=== PATIENT | female | born 1955 | race African-American/Black ===

== ENCOUNTER 2017-07-21 15:54 | Inpatient (IN) | payer OTHER ==
--- NOTE | 2017-07-21 16:04 | PDOC ---
Rapid Medical Evaluation Time Seen by Provider: 07/21/17 15:56 Medical Evaluation: 07/21/17 15:56 The patient presents with a chief complaint of: Lethargy, AMS. states pt has not been taking her diabetic medication for the past week I have performed a brief in-person evaluation of this patient; Pertinent physical exam findings: No facial droop, no arm drift, speech is mildly slurred I have ordered the following: CMC, CMP, Lactic, Cardiac profile, Acetone, EKG, CT head The patient will proceed to the ED for further evaluation.
[2017-07-21 16:53] LABS: MCH 26.8 pg (25.7-33.7); MCHC 29.9 g/dl (32.0-36.0); MEAN CELL VOLUME 89.9 fl (80-96); PLATELET COUNT 245 K/MM3 (134-434); RDW 16.8 % (11.6-15.6); WHITE BLOOD COUNT 12.1 K/mm3 (4.0-10.0)
[2017-07-21 16:57] LABS: URINE APPEARANCE TURBID; URINE BILIRUBIN NEGATIVE (NEGATIVE); URINE BLOOD 3+ (NEGATIVE); URINE COLOR YELLOW; URINE GLUCOSE (UA) 3+ (NEGATIVE); URINE KETONE 1+ (NEGATIVE); URINE NITRITE NEGATIVE (NEGATIVE); URINE UROBILINOGEN NEGATIVE mg/dL (0.2-1.0)
[2017-07-21 17:02] LABS: URINE LEUK ESTERASE 3+ (NEGATIVE); URINE PROTEIN 1+ (NEGATIVE)
[2017-07-21 17:04] LABS: URINE BACTERIA MANY /hpf (NONE SEEN); URINE MUCUS MANY; URINE RBC 32 /hpf (0-3); URINE WBC 425 /hpf (3-5); YEAST FEW
[2017-07-21 17:07] LABS: INR 1.14 (0.82-1.09); PROTHROMBIN TIME (PATIENT) 12.9 SEC (9.98-11.88)
[2017-07-21 17:11] LABS: ALBUMIN 2.3 g/dl (3.4-5.0); ALK PHOS 165 U/L (45-117); ANION GAP 20 (8-16); BILIRUBIN,TOTAL 0.7 mg/dL (0.2-1.0); CALCIUM 7.8 mg/dL (8.5-10.1); CO2 18 mmol/L (21-32); SGOT/AST 41 U/L (15-37); SGPT/ALT 25 U/L (12-78); TOT PROT 6.8 g/dl (6.4-8.2)
[2017-07-21 17:19] LABS: GLUCOSE,RANDOM 937 mg/dL (74-106)
[2017-07-21] MEDS ORDERED: INSULIN REGULAR HUMAN 100 UNITS/ML *VIAL IVPUSH ONE (17:20)
[2017-07-21] MEDS ORDERED: SODIUM CHLORIDE 1,000 ML IV STA (17:22)
[2017-07-21 17:25] LABS: CPK 1060 IU/L (26-192); TROPONIN I < 0.02 ng/ml (0.00-0.05)
--- NOTE | 2017-07-21 17:39 | PDOC ---
History of Present Illness <Alessio Duke - Last Filed: 07/21/17 17:33> - General History Source: Patient Exam Limitations: No Limitations - History of Present Illness Initial Comments: 07/21/17 18:33 The patient is a 62 year old female, with a significant past medical history of Asthma, Diabetes, HTN who presents to the emergency department with increased lethargy for the past 3 days. Patient reports feeling generally weak and has not been eating normally. As per , patient has not been taking her Metformin regularly and has been complaining of dry mouth and increased thirst over the past few days. Today, patient had a episode of AMS with slurred speech. Patient has not been taking her medications due to insurance issues and presents to the ED for evaluation of her emergent condition. Patient denies chest pain, headache or dizziness. Patient denies fever, chills, abdominal pain, nausea, vomit, diarrhea or constipation. Patient denies dysuria , frequency, urgency or hematuria. Patient denies sick contacts or recent travel. Allergies: NKA Past surgical history: None Social history: None PCP: None <Ana Baca - Last Filed: 07/21/17 18:33> - General Chief Complaint: CVA/TIA Stated Complaint: SLURRED SPEECH Time Seen by Provider: 07/21/17 15:56 Past History - Past Medical History Asthma: Yes COPD: No Diabetes: Yes HTN: Yes - Suicide/Smoking/Psychosocial Hx Smoking History: Never smoked Information on smoking cessation initiated: No Hx Alcohol Use: No Drug/Substance Use Hx: No Substance Use Type: None <Alesiso Duke - Last Filed: 07/21/17 17:33> <Ana Baca - Last Filed: 07/21/17 18:33> - Past Medical History Allergies/Adverse Reactions: Allergies Allergy/AdvReac Type Severity Reaction Status Date / Time No Known Allergies Allergy Verified 07/21/17 15:58 Home Medications: Ambulatory Orders Irbesartan 300 mg PO DAILY 07/21/17 Metformin HCl [Metformin HCl ER] 1,000 mg PO BID 07/21/17 Review of Systems - Review of Systems Able to Perform ROS?: Yes Comments:: 07/21/17 18:33 GENERAL/CONSTITUTIONAL: No fever or chills. +generalized weakness. HEAD, EYES, EARS, NOSE AND THROAT: No change in vision. No ear pain or discharge. No sore throat. CARDIOVASCULAR: No chest pain or shortness of breath. RESPIRATORY: No cough, wheezing, or hemoptysis. GASTROINTESTINAL: No nausea, vomiting, diarrhea or constipation. GENITOURINARY: No dysuria, frequency, or change in urination. MUSCULOSKELETAL: No joint or muscle swelling or pain. No neck or back pain. SKIN: No rash NEUROLOGIC: No headache, vertigo, loss of consciousness, or change in strength/ sensation. ENDOCRINE: No increased thirst. No abnormal weight change. HEMATOLOGIC/LYMPHATIC: No anemia, easy bleeding, or history of blood clots. ALLERGIC/IMMUNOLOGIC: No hives or skin allergy. <Ana Baca - Last Filed: 07/21/17 18:33> *Physical Exam - Vital Signs Last Vital Signs Temp Pulse Resp BP Pulse Ox 99.3 F 90 18 100/43 100 07/21/17 15:58 07/21/17 15:58 07/21/17 15:58 07/21/17 15:58 07/21/17 15:58 <Alessio Duke - Last Filed: 07/21/17 17:33> - Vital Signs Last Vital Signs Temp Pulse Resp BP Pulse Ox 99.3 F 90 18 100/43 100 07/21/17 15:58 07/21/17 15:58 07/21/17 15:58 07/21/17 15:58 07/21/17 15:58 - Physical Exam Comments: 07/21/17 18:33 GENERAL: Awake, alert, and fully oriented, in no acute distress. +Generalized weakness. HEAD: No signs of trauma EYES: PERRLA, EOMI, sclera anicteric, conjunctiva clear ENT: Auricles normal inspection, hearing grossly normal, nares patent, oropharynx clear without exudates. + dry MM NECK: Normal ROM, supple, no lymphadenopathy, JVD, or masses LUNGS: Breath sounds equal, clear to auscultation bilaterally. No wheezes, and no crackles HEART: Regular rate and rhythm, normal S1 and S2, no murmurs, rubs or gallops ABDOMEN: Soft, nontender, normoactive bowel sounds. No guarding, no rebound. No masses EXTREMITIES: Normal range of motion, no edema. No clubbing or cyanosis. No cords, erythema, or tenderness NEUROLOGICAL: Cranial nerves II through XII grossly intact. Normal speech, normal gait SKIN: +poor skin turgor. Warm, Dry, normal turgor, no rashes or lesions noted. <KevenAna rivas - Last Filed: 07/21/17 18:33> ED Treatment Course - LABORATORY CBC & Chemistry Diagram: 07/21/17 16:19 07/21/17 16:19 - ADDITIONAL ORDERS Additional order review: Laboratory Results 07/21/17 07/21/17 07/21/17 16:42 16:19 16:19 PT with INR INR Sodium Potassium Chloride Carbon Dioxide Anion Gap BUN Creatinine Creat Clearance w eGFR Random Glucose Lactic Acid 1.7 Calcium Total Bilirubin AST ALT Alkaline Phosphatase Creatine Kinase 1060 H Troponin I < 0.02 Total Protein Albumin Urine Color Yellow Urine Appearance Turbid Urine pH 5.0 Ur Specific Rodney 1.018 Urine Protein 1+ H Urine Glucose (UA) 3+ H Urine Ketones 1+ H Urine Blood 3+ H Urine Nitrite Negative Urine Bilirubin Negative Urine Urobilinogen Negative Urine WBC (Auto) 425 Urine RBC (Auto) 32 Ur Epithelial Cells Rare Urine Bacteria Many Urine Mucus Many Urine Yeast Few 07/21/17 07/21/17 16:19 16:19 PT with INR 12.90 H INR 1.14 Sodium 119 L* Potassium 5.8 H Chloride 81 L Carbon Dioxide 18 L Anion Gap 20 H BUN 41 H Creatinine 2.0 H Creat Clearance w eGFR 25.08 Random Glucose 937 H* Lactic Acid Calcium 7.8 L Total Bilirubin 0.7 AST 41 H ALT 25 Alkaline Phosphatase 165 H Creatine Kinase Troponin I Total Protein 6.8 Albumin 2.3 L Urine Color Urine Appearance Urine pH Ur Specific Rodney Urine Protein Urine Glucose (UA) Urine Ketones Urine Blood Urine Nitrite Urine Bilirubin Urine Urobilinogen Urine WBC (Auto) Urine RBC (Auto) Ur Epithelial Cells Urine Bacteria Urine Mucus Urine Yeast 07/21/17 16:19 RBC 3.24 L MCV 89.9 MCHC 29.9 L RDW 16.8 H MPV 11.0 Neutrophils % No Result Required. Lymphocytes % No Result Required. <Alessio Duke - Last Filed: 07/21/17 17:33> - LABORATORY CBC & Chemistry Diagram: 07/21/17 16:19 07/21/17 16:19 - ADDITIONAL ORDERS Additional order review: Laboratory Results 07/21/17 07/21/17 07/21/17 16:42 16:19 16:19 PT with INR INR Sodium Potassium Chloride Carbon Dioxide Anion Gap BUN Creatinine Creat Clearance w eGFR Random Glucose Lactic Acid 1.7 Calcium Total Bilirubin AST ALT Alkaline Phosphatase Creatine Kinase 1060 H Troponin I < 0.02 Total Protein Albumin Urine Color Yellow Urine Appearance Turbid Urine pH 5.0 Ur Specific Rodney 1.018 Urine Protein 1+ H Urine Glucose (UA) 3+ H Urine Ketones 1+ H Urine Blood 3+ H Urine Nitrite Negative Urine Bilirubin Negative Urine Urobilinogen Negative Urine WBC (Auto) 425 Urine RBC (Auto) 32 Ur Epithelial Cells Rare Urine Bacteria Many Urine Mucus Many Urine Yeast Few 07/21/17 07/21/17 16:19 16:19 PT with INR 12.90 H INR 1.14 Sodium 119 L* Potassium 5.8 H Chloride 81 L Carbon Dioxide 18 L Anion Gap 20 H BUN 41 H Creatinine 2.0 H Creat Clearance w eGFR 25.08 Random Glucose 937 H* Lactic Acid Calcium 7.8 L Total Bilirubin 0.7 AST 41 H ALT 25 Alkaline Phosphatase 165 H Creatine Kinase Troponin I Total Protein 6.8 Albumin 2.3 L Urine Color Urine Appearance Urine pH Ur Specific Rodney Urine Protein Urine Glucose (UA) Urine Ketones Urine Blood Urine Nitrite Urine Bilirubin Urine Urobilinogen Urine WBC (Auto) Urine RBC (Auto) Ur Epithelial Cells Urine Bacteria Urine Mucus Urine Yeast 07/21/17 16:19 RBC 3.24 L MCV 89.9 MCHC 29.9 L RDW 16.8 H MPV 11.0 Neutrophils % No Result Required. Lymphocytes % No Result Required. <Ana Baca - Last Filed: 07/21/17 18:33> Medical Decision Making - Critical Care Time Total Critical Care Time (minutes): 60 Critical Care Statement: The care of this patient involved high complexity decision making to prevent further life threatening deterioration of the patient 's condition and/or to evaluate & treat vital organ system(s) failure or risk of failure. - Medical Decision Making 07/21/17 17:51 Valerie paged via phone answering service. Patients case discussed. Will admit to ICU Case discussed with Janes. Case accepted. <Ana Baca - Last Filed: 07/21/17 18:33> *DC/Admit/Observation/Transfer - Discharge Dispostion Admit: Yes <Alessio Duke - Last Filed: 07/21/17 17:33> - Attestations Scribe Attestion: 07/21/17 18:33 Documentation prepared by Ana Baca, acting as ophthalmic medical technologist for Alessio Duke DO. <Ana Baca - Last Filed: 07/21/17 18:33> Diagnosis at time of Disposition: Non-ketotic hyperosmolar coma, Hyponatremia Altered mental status Qualifiers: Altered mental status type: delirium Qualified Code(s): R41.0 - Disorientation , unspecified UTI (urinary tract infection) Qualifiers: Urinary tract infection type: site unspecified Hematuria presence: with hematuria Qualified Code(s): N39.0 - Urinary tract infection, site not specified Sepsis Qualifiers: Sepsis type: sepsis due to unspecified organism Qualified Code(s): A41.9 - Sepsis, unspecified organism - Discharge Dispostion Condition at time of disposition: Unchanged/Unknown
[2017-07-21 17:59] LABS: ANISOCYTOSIS 1+; HYPOCHROMIA 1+; MACROCYTOSIS 0; METAMYELOCYTE 0 % (0-2); MICROCYTOSIS 0; MYELOCYTE 0 % (0-2); PLATELET COMMENTS PRESENT; PLATELET ESTIMATE NORMAL; POIKILOCYTOSIS 0; POLYCHROMASIA 0; REACTIVE LYMPHOCYTES 0 % (0-80); STOMATOCYTE 1+
[2017-07-21] MEDS ORDERED: INSULIN REGULAR HUMAN 100 UNITS/ML *VIAL ONE (18:01)
[2017-07-21] MEDS ORDERED: SODIUM CHLORIDE 0.9% 1000 ML INFUS.BAG IV ONE (18:24)
[2017-07-21 18:26] LABS: ARTERIAL BLD GAS O2 SATURATION 94.9 % (90-98.9); ARTERIAL BLOOD GAS BASE EXCESS -8.2 meq/l (-2-2); ARTERIAL BLOOD GAS HCO3 15.8 meq/L (22-26); ARTERIAL BLOOD GAS pH 7.37 (7.35-7.45)
[2017-07-21 18:27] LABS: ALLENS TEST POSITIVE
[2017-07-21 18:28] LABS: ART PUNCT SITE RIGHT RADIAL
[2017-07-21 18:29] LABS: PT. ON O2? NO
[2017-07-21] MEDS ORDERED: CEFTRIAXONE 1 GM/50 ML BAG ONE (18:56)
[2017-07-21] MEDS ORDERED: cefTRIAXone 1 GM/50 ML BAG (PRE-DOCKED) IVPB ONE (19:03)
[2017-07-21 21:23] LABS: URINE LEUK ESTERASE 3+ (NEGATIVE)
[2017-07-21] MEDS ORDERED: LEVOFLOXACIN 500 MG IVPB 500 MG/100 ML BAG IVPB ONE ×2 (22:27→22:45)
[2017-07-21] MEDS ORDERED: SODIUM CHLORIDE 1,000 ML IV SCH (22:30)
--- NOTE | 2017-07-21 22:31 | HP ---
Admitting History and Physical - Primary Care Physician PCP: Jinny Padilla - Past Medical History Cardiovascular: Yes: HTN Pulmonary: Yes: Asthma Endocrine: Yes: Diabetes Mellitus - Smoking History Smoking history: Never smoked - Alcohol/Substance Use Hx Alcohol Use: No Home Medications - Allergies Allergies/Adverse Reactions: Allergies Allergy/AdvReac Type Severity Reaction Status Date / Time No Known Allergies Allergy Verified 07/21/17 15:58 - Home Medications Home Medications: Ambulatory Orders Irbesartan 300 mg PO DAILY 07/21/17 Metformin HCl [Metformin HCl ER] 1,000 mg PO BID 07/21/17 Review of Systems - Review of Systems Constitutional: reports: Lethargy Genitourinary: reports: Frequency Endocrine: reports: Increased Thirst Physical Examination Vital Signs: Vital Signs Temperature 99.3 F 07/21/17 15:58 Pulse Rate 94 H 07/21/17 20:25 Respiratory Rate 18 07/21/17 20:25 Blood Pressure 94/40 07/21/17 20:25 O2 Sat by Pulse Oximetry (%) 98 07/21/17 20:25 Constitutional: Yes: No Distress HENT: Yes: Atraumatic Neck: Yes: Supple Cardiovascular: Yes: Regular Rate and Rhythm Respiratory: Yes: CTA Bilaterally Gastrointestinal: Yes: Normal Bowel Sounds Extremities: Yes: WNL Neurological: Yes: Alert, Oriented Labs: CBC, BMP 07/21/17 16:19 Problem List - Problems (1) Altered mental status Assessment/Plan: alert and awake Code(s): R41.82 - ALTERED MENTAL STATUS, UNSPECIFIED Qualifiers: Altered mental status type: delirium Qualified Code(s): R41.0 - Disorientation, unspecified (2) Hyponatremia Assessment/Plan: on iv fluids monitor Code(s): E87.1 - HYPO-OSMOLALITY AND HYPONATREMIA (3) Non-ketotic hyperosmolar coma Assessment/Plan: on meds for diabetes endocrine consult Code(s): E11.01 - TYPE 2 DIABETES MELLITUS WITH HYPEROSMOLARITY WITH COMA (4) Sepsis Assessment/Plan: cxs pending on abx Code(s): A41.9 - SEPSIS, UNSPECIFIED ORGANISM Qualifiers: Sepsis type: sepsis due to unspecified organism Qualified Code(s): A41.9 - Sepsis, unspecified organism (5) UTI (urinary tract infection) Code(s): N39.0 - URINARY TRACT INFECTION, SITE NOT SPECIFIED Qualifiers: Urinary tract infection type: site unspecified Hematuria presence: with hematuria Qualified Code(s): N39.0 - Urinary tract infection, site not specified; R31.9 - Hematuria, unspecified; R31.9 - Hematuria, unspecified Assessment/Plan Laboratory Tests 07/21/17 07/21/17 07/21/17 16:18 16:19 16:19 WBC 12.1 H RBC 3.24 L Hgb 8.7 L Hct 29.1 L MCV 89.9 MCH 26.8 MCHC 29.9 L RDW 16.8 H Plt Count 245 MPV 11.0 Neutrophils % No Result Required. Neutrophils % (Manual) 62.0 Band Neutrophils % 24.0 Lymphocytes % No Result Required. Lymphocytes % (Manual) 1.0 L Monocytes % (Manual) 13 H Basophils % (Manual) 0.0 Myelocytes % (Man) 0 Metamyelocytes 0 Hypochromia 1+ Platelet Estimate Normal Platelet Comment Present Polychromasia 0 Poikilocytosis 0 Anisocytosis 1+ Microcytosis 0 Macrocytosis 0 Stomatocytes 1+ PT with INR 12.90 H INR 1.14 Puncture Site ABG pH ABG pCO2 at Pt Temp ABG pO2 at Pt Temp ABG HCO3 ABG O2 Sat (Measured) ABG O2 Content ABG Base Excess Casper Test Oxygen Flow Rate Sodium Potassium Chloride Carbon Dioxide Anion Gap BUN Creatinine Creat Clearance w eGFR POC Glucometer [phone] Random Glucose Lactic Acid Calcium Total Bilirubin AST ALT Alkaline Phosphatase Creatine Kinase Creatine Kinase Index CK-MB (CK-2) Troponin I Total Protein Albumin Urine Color Urine Appearance Urine pH Ur Specific Jordan Urine Protein Urine Glucose (UA) Urine Ketones Urine Blood Urine Nitrite Urine Bilirubin Urine Urobilinogen Ur Leukocyte Esterase Urine WBC (Auto) Urine RBC (Auto) Ur Epithelial Cells Urine Bacteria Urine Mucus Urine Yeast Acetone, Qual Blood Type Antibody Screen 07/21/17 07/21/17 07/21/17 16:19 16:19 16:19 WBC RBC Hgb Hct MCV MCH MCHC RDW Plt Count MPV Neutrophils % Neutrophils % (Manual) Band Neutrophils % Lymphocytes % Lymphocytes % (Manual) Monocytes % (Manual) Basophils % (Manual) Myelocytes % (Man) Metamyelocytes Hypochromia Platelet Estimate Platelet Comment Polychromasia Poikilocytosis Anisocytosis Microcytosis Macrocytosis Stomatocytes PT with INR INR Puncture Site ABG pH ABG pCO2 at Pt Temp ABG pO2 at Pt Temp ABG HCO3 ABG O2 Sat (Measured) ABG O2 Content ABG Base Excess Casper Test Oxygen Flow Rate Sodium 119 L* Potassium 5.8 H Chloride 81 L Carbon Dioxide 18 L Anion Gap 20 H BUN 41 H Creatinine 2.0 H Creat Clearance w eGFR 25.08 POC Glucometer Random Glucose 937 H* Lactic Acid 1.7 Calcium 7.8 L Total Bilirubin 0.7 AST 41 H ALT 25 Alkaline Phosphatase 165 H Creatine Kinase 1060 H Creatine Kinase Index 0.2 CK-MB (CK-2) 2.922 Troponin I < 0.02 Total Protein 6.8 Albumin 2.3 L Urine Color Urine Appearance Urine pH Ur Specific Jordan Urine Protein Urine Glucose (UA) Urine Ketones Urine Blood Urine Nitrite Urine Bilirubin Urine Urobilinogen Ur Leukocyte Esterase Urine WBC (Auto) Urine RBC (Auto) Ur Epithelial Cells Urine Bacteria Urine Mucus Urine Yeast Acetone, Qual Blood Type Antibody Screen 07/21/17 07/21/17 07/21/17 16:19 16:19 16:42 WBC RBC Hgb Hct MCV MCH MCHC RDW Plt Count MPV Neutrophils % Neutrophils % (Manual) Band Neutrophils % Lymphocytes % Lymphocytes % (Manual) Monocytes % (Manual) Basophils % (Manual) Myelocytes % (Man) Metamyelocytes Hypochromia Platelet Estimate Platelet Comment Polychromasia Poikilocytosis Anisocytosis Microcytosis Macrocytosis Stomatocytes PT with INR INR Puncture Site ABG pH ABG pCO2 at Pt Temp ABG pO2 at Pt Temp ABG HCO3 ABG O2 Sat (Measured) ABG O2 Content ABG Base Excess Casper Test Oxygen Flow Rate Sodium Potassium Chloride Carbon Dioxide Anion Gap BUN Creatinine Creat Clearance w eGFR POC Glucometer Random Glucose Lactic Acid Calcium Total Bilirubin AST ALT Alkaline Phosphatase Creatine Kinase Creatine Kinase Index CK-MB (CK-2) Troponin I Total Protein Albumin Urine Color Yellow Urine Appearance Turbid Urine pH 5.0 Ur Specific Jordan 1.018 Urine Protein 1+ H Urine Glucose (UA) 3+ H Urine Ketones 1+ H Urine Blood 3+ H Urine Nitrite Negative Urine Bilirubin Negative Urine Urobilinogen Negative Ur Leukocyte Esterase 3+ H Urine WBC (Auto) 425 Urine RBC (Auto) 32 Ur Epithelial Cells Rare Urine Bacteria Many Urine Mucus Many Urine Yeast Few Acetone, Qual Positive moderate 2+ H Blood Type A POSITIVE Antibody Screen Negative 07/21/17 18:21 WBC RBC Hgb Hct MCV MCH MCHC RDW Plt Count MPV Neutrophils % Neutrophils % (Manual) Band Neutrophils % Lymphocytes % Lymphocytes % (Manual) Monocytes % (Manual) Basophils % (Manual) Myelocytes % (Man) Metamyelocytes Hypochromia Platelet Estimate Platelet Comment Polychromasia Poikilocytosis Anisocytosis Microcytosis Macrocytosis Stomatocytes PT with INR INR Puncture Site Right radial ABG pH 7.37 ABG pCO2 at Pt Temp 28.0 L ABG pO2 at Pt Temp 77.0 L ABG HCO3 15.8 L ABG O2 Sat (Measured) 94.9 ABG O2 Content 10.2 L ABG Base Excess -8.2 L Casper Test Positive Oxygen Flow Rate No Sodium Potassium Chloride Carbon Dioxide Anion Gap BUN Creatinine Creat Clearance w eGFR POC Glucometer Random Glucose Lactic Acid Calcium Total Bilirubin AST ALT Alkaline Phosphatase Creatine Kinase Creatine Kinase Index CK-MB (CK-2) Troponin I Total Protein Albumin Urine Color Urine Appearance Urine pH Ur Specific Jordan Urine Protein Urine Glucose (UA) Urine Ketones Urine Blood Urine Nitrite Urine Bilirubin Urine Urobilinogen Ur Leukocyte Esterase Urine WBC (Auto) Urine RBC (Auto) Ur Epithelial Cells Urine Bacteria Urine Mucus Urine Yeast Acetone, Qual Blood Type Antibody Screen Active Medications Generic Name Dose Route Start Last Admin Trade Name Freq PRN Reason Stop Dose Admin Levofloxacin 500 mg in 100 mls @ 100 mls/hr 07/21/17 22:27 Levaquin 500 Mg Premixed Ivpb - IVPB 07/21/17 23:26 DAILY ONE Sodium Chloride 1,000 mls @ 100 mls/hr 07/21/17 22:30 Normal Saline - IV ASDIR JESSICA Non-Formulary Medication 1,000 mg 07/22/17 10:00 Metformin Hcl [Metformin Hcl Er] PO BID JESSICA icu 60 min...cc time
[2017-07-21 22:53] LABS: ALBUMIN 1.9 g/dl (3.4-5.0); ANION GAP 15 (8-16); CO2 17 mmol/L (21-32); CREATININE 1.4 mg/dL (0.55-1.02); SGOT/AST 30 U/L (15-37); SGPT/ALT 20 U/L (12-78)
[2017-07-21 22:55] LABS: ALK PHOS 143 U/L (45-117); BILIRUBIN,TOTAL 0.6 mg/dL (0.2-1.0); TOT PROT 5.5 g/dl (6.4-8.2)
[2017-07-21 23:00] LABS: GLUCOSE,RANDOM 578 mg/dL (74-106)
[2017-07-21 23:01] LABS: CALCIUM 6.8 mg/dL (8.5-10.1)
[2017-07-21 23:23] LABS: MCH 27.3 pg (25.7-33.7); MCHC 32.1 g/dl (32.0-36.0); MEAN CELL VOLUME 85.2 fl (80-96); MEAN PLT VOLUME 9.9 fl (7.5-11.1); PLATELET COUNT 224 K/MM3 (134-434); WHITE BLOOD COUNT 12.2 K/mm3 (4.0-10.0)
[2017-07-22 00:12] LABS: ANISOCYTOSIS 1+; HYPOCHROMIA 1+; TOXIC GRANULATION FEW
[2017-07-22 00:22] VITALS: BMI 29.5
[2017-07-22] MEDS ORDERED: FLU VACCINE QUAD 60 MCG/0.5 ML (MDV 17-18) IM ONE (00:24)
--- NOTE | 2017-07-22 06:14 | CONSULT ---
Consult Consult Specialty:: PULM/CCM Referred by:: Dr. Jinny Padilla Reason for Consultation:: DKA - History of Present Illness Chief Complaint: Malaise History of Present Illness: Ms. Perez is a 62 y/o woman w/ HTN, DM, & Asthma who presents to the ED c/o c/o : dry mouth, increased thirst, increased lethargy, & poor PO intake X 3 days. Pt endorses Metformin non-compliance X 3 -4 days & states that she stopped taking her Metformin b/c she was "not feeling well". The pt denied any CP, SOB, fever, chills, N/V/D, abd pain, TILLMAN, dizzy, dysuria, frequency, urgency or hematuria. Patient denies any sick contacts or recent travel. W/u reveales a dirty UA & metabolic disarray. Labs reveal: dehydration, +acetone, a gap, & Ketones in the Urine. Pt admitted to the ICU for DKA. 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, Dementia Cardio/Vascular: Yes: HTN Pulmonary: Yes: Asthma Gastrointestinal: No: GERD Renal/: No: Renal Inusuff Endocrine: Yes: Diabetes Mellitus - Past Surgical History Past Surgical History: Yes: None - Alcohol/Substance Use Hx Alcohol Use: No - Smoking History Smoking history: Never smoked Have you smoked in the past 12 months: No - Social History Usual Living Arrangement: With Spouse History of Recent Travel: No Home Medications - Allergies Allergies/Adverse Reactions: Allergies Allergy/AdvReac Type Severity Reaction Status Date / Time No Known Allergies Allergy Verified 07/21/17 15:58 - Home Medications Home Medications: Ambulatory Orders Irbesartan 300 mg PO DAILY 07/21/17 Metformin HCl [Metformin HCl ER] 1,000 mg PO BID 07/21/17 Family Disease History - Family Disease History Family History: Denies Review of Systems - Review of Systems Constitutional: reports: Loss of Appetite, Malaise, Weakness. denies: Chills, Fever Eyes: reports: No Symptoms HENT: reports: No Symptoms Neck: reports: No Symptoms Cardiovascular: reports: No Symptoms Respiratory: reports: No Symptoms Gastrointestinal: reports: No Symptoms Genitourinary: reports: No Symptoms Breasts: reports: No Symptoms Reported Musculoskeletal: reports: No Symptoms Integumentary: reports: No Symptoms Neurological: reports: Change in Speech Endocrine: reports: Increased Thirst Hematology/Lymphatic: reports: No Symptoms Psychiatric: reports: No Symptoms Pain Intensity: 0 Physical Exam Vital Signs: Vital Signs Temperature 99.6 F 07/22/17 02:00 Pulse Rate 99 H 07/22/17 04:00 Respiratory Rate 20 07/22/17 04:00 Blood Pressure 99/55 07/22/17 04:00 O2 Sat by Pulse Oximetry (%) 95 07/22/17 00:26 Constitutional: Yes: Well Nourished, No Distress, Calm Eyes: Yes: WNL, Conjunctiva Clear, EOM Intact HENT: Yes: WNL, Atraumatic, Normocephalic Neck: Yes: WNL, Supple, Trachea Midline Cardiovascular: Yes: WNL, Regular Rate and Rhythm Respiratory: Yes: WNL, Regular, CTA Bilaterally Gastrointestinal: Yes: WNL, Normal Bowel Sounds, Soft ...Rectal Exam: Yes: Deferred Renal/: Yes: WNL Breast(s): Yes: WNL Musculoskeletal: Yes: WNL Extremities: Yes: WNL Edema: No Peripheral Pulses WNL: Yes Neurological: Yes: WNL, Alert, Oriented ...Motor Strength: WNL Psychiatric: Yes: WNL, Alert, Oriented Labs: CBC, BMP 07/21/17 23:10 07/21/17 22:20 Anion Gap Anion Gap 15 (8-16) 07/21/17 22:20 Abnormal Lab Results 07/21/17 07/21/17 07/21/17 16:19 16:19 16:19 WBC 12.1 H RBC 3.24 L Hgb 8.7 L Hct 29.1 L MCHC 29.9 L RDW 16.8 H Lymphocytes % (Manual) 1.0 L Monocytes % (Manual) 13 H PT with INR 12.90 H ABG pCO2 at Pt Temp ABG pO2 at Pt Temp ABG HCO3 ABG O2 Content ABG Base Excess Sodium 119 L* Potassium 5.8 H Chloride 81 L Carbon Dioxide 18 L Anion Gap 20 H BUN 41 H Creatinine 2.0 H Random Glucose 937 H* Calcium 7.8 L AST 41 H Alkaline Phosphatase 165 H Creatine Kinase Total Protein Albumin 2.3 L Urine Protein Urine Glucose (UA) Urine Ketones Urine Blood Ur Leukocyte Esterase Acetone, Qual 07/21/17 07/21/17 07/21/17 16:19 16:19 16:42 WBC RBC Hgb Hct MCHC RDW Lymphocytes % (Manual) Monocytes % (Manual) PT with INR ABG pCO2 at Pt Temp ABG pO2 at Pt Temp ABG HCO3 ABG O2 Content ABG Base Excess Sodium Potassium Chloride Carbon Dioxide Anion Gap BUN Creatinine Random Glucose Calcium AST Alkaline Phosphatase Creatine Kinase 1060 H Total Protein Albumin Urine Protein 1+ H Urine Glucose (UA) 3+ H Urine Ketones 1+ H Urine Blood 3+ H Ur Leukocyte Esterase 3+ H Acetone, Qual Positive moderate 2+ H 07/21/17 07/21/17 07/21/17 18:21 22:20 22:20 WBC RBC Hgb Hct MCHC RDW Lymphocytes % (Manual) Monocytes % (Manual) PT with INR ABG pCO2 at Pt Temp 28.0 L ABG pO2 at Pt Temp 77.0 L ABG HCO3 15.8 L ABG O2 Content 10.2 L ABG Base Excess -8.2 L Sodium 132 L D Potassium Chloride Carbon Dioxide 17 L Anion Gap BUN 34 H Creatinine 1.4 H D Random Glucose 578 H* D Calcium 6.8 L* AST Alkaline Phosphatase 143 H Creatine Kinase Total Protein 5.5 L Albumin 1.9 L Urine Protein Urine Glucose (UA) Urine Ketones Urine Blood Ur Leukocyte Esterase Acetone, Qual Positive small 1+ H 07/21/17 07/22/17 23:10 06:05 WBC 12.2 H 13.8 H RBC 3.07 L 2.94 L Hgb 8.4 L 7.9 L Hct 26.1 L 25.1 L MCHC 31.3 L RDW 16.0 H 16.1 H Lymphocytes % (Manual) 3.0 L D Monocytes % (Manual) PT with INR ABG pCO2 at Pt Temp ABG pO2 at Pt Temp ABG HCO3 ABG O2 Content ABG Base Excess Sodium Potassium Chloride Carbon Dioxide Anion Gap BUN Creatinine Random Glucose Calcium AST Alkaline Phosphatase Creatine Kinase Total Protein Albumin Urine Protein Urine Glucose (UA) Urine Ketones Urine Blood Ur Leukocyte Esterase Acetone, Qual Imaging - Results Chest X-ray: Image Reviewed (CXR 07/21: Clear (My Read).) EKG: Image Reviewed (EKG 07/21: NSR in the 90's w/o ectopy, normal axis, L atrial enlargement, no ST or T-wave aberrations, QTc = 457ms, no acute processes (My Read).) Problem List - Problems (1) UTI (urinary tract infection) Code(s): N39.0 - URINARY TRACT INFECTION, SITE NOT SPECIFIED Qualifiers: Urinary tract infection type: site unspecified Hematuria presence: with hematuria Qualified Code(s): N39.0 - Urinary tract infection, site not specified; R31.9 - Hematuria, unspecified; R31.9 - Hematuria, unspecified (2) Diabetes Code(s): E11.9 - TYPE 2 DIABETES MELLITUS WITHOUT COMPLICATIONS (3) DKA (diabetic ketoacidoses) Code(s): E13.10 - OTH DIABETES MELLITUS WITH KETOACIDOSIS WITHOUT COMA (4) Hypertension Code(s): I10 - ESSENTIAL (PRIMARY) HYPERTENSION Assessment/Plan ASSESS: This is a 62 y/o woman w/ HTN, DM, & Asthma who presents w/ DKA in the setting of a UTI. PLAN: -Insulin gtt -FSs -Aggressive IVFs -Strict I's & O's -Monitor UOP -Trend BUN/Cr -Replete e-lytes prn -LVQ -Once PO intake normalizes resume DM regimin -Cont Home ARB -ENDO -SQH -SCDs -No indictaion for a PPI @ this time ADE [facility] ICU 4436 PULM/CCM Critical Care Time/MDM Note Total Critical Care Time: 39 Critical Care Statement: The care of this patient involved high complexity decision making to prevent further life threatening deterioration of the patient 's condition and/or to evaluate & treat vital organ system(s) failure or risk of failure.
[2017-07-22 06:29] LABS: MCH 26.8 pg (25.7-33.7); MCHC 31.3 g/dl (32.0-36.0); MEAN CELL VOLUME 85.5 fl (80-96); MEAN PLT VOLUME 10.7 fl (7.5-11.1); PLATELET COUNT 234 K/MM3 (134-434); RDW 16.1 % (11.6-15.6); WHITE BLOOD COUNT 13.8 K/mm3 (4.0-10.0)
[2017-07-22] MEDS ORDERED: ACETAMINOPHEN 1000 MG/100 ML VIAL (NON FORMULARY) IVPB ONE (06:29)
[2017-07-22] MEDS ORDERED: INSULIN REGULAR 100 UNITS in SODIUM CHLORIDE 99 ML IVPB SCH (06:30)
[2017-07-22] MEDS ORDERED: INSULIN REGULAR HUMAN 100 UNITS/ML *VIAL ONE (06:47)
[2017-07-22 06:48] LABS: ALBUMIN 1.7 g/dl (3.4-5.0); ANION GAP 17 (8-16); CO2 13 mmol/L (21-32); CREATININE 1.1 mg/dL (0.55-1.02); SGOT/AST 27 U/L (15-37); SGPT/ALT 19 U/L (12-78)
[2017-07-22 06:53] LABS: ALK PHOS 132 U/L (45-117); BILIRUBIN,TOTAL 0.6 mg/dL (0.2-1.0); TOT PROT 5.4 g/dl (6.4-8.2)
[2017-07-22 07:08] LABS: CALCIUM 6.8 mg/dL (8.5-10.1); GLUCOSE,RANDOM 503 mg/dL (74-106)
[2017-07-22] MEDS ORDERED: HEMOQUE TEST 1 EACH EACH ONE ×2 (08:06→14:56)
[2017-07-22 08:51] LABS: MAGNESIUM 2.8 mg/dL (1.8-2.4); PHOSPHOROUS 2.6 mg/dL (2.5-4.9)
[2017-07-22] MEDS: LEVOFLOXACIN 250 MG IVPB 250 MG/50 ML MG IVPB SCH (09:22)
[2017-07-22 09:44] LABS: ACANTHOCYTES 0; ANISOCYTOSIS 0; BAND % 2.1 %; BURR CELLS 0; CABBOT RINGS 0; HELMET CELLS 0; HOWELL-JOLLY BODIES 0; HYPOCHROMIA 0; MACROCYTOSIS 0; METAMYELOCYTE 3 % (0-2); MICROCYTOSIS 0; MYELOCYTE 1 % (0-2); OVALOCYTE 0; PLATELET ESTIMATE NORMAL; POIKILOCYTOSIS 0; POLYCHROMASIA 0; REACTIVE LYMPHOCYTES 0 % (0-80); SCHISTOCYTES 0; SPHEROCYTE 0; STOMATOCYTE 0; TARGET CELLS 0; TEAR DROP CELLS 0; TOXIC GRANULATION 0
[2017-07-22] MEDS ORDERED: PATIENT'S OWN MEDICATION (NON-FORMULARY) (Metformin Hcl [Metformin Hcl Er] 1,000 MG) PO SCH (10:00)
[2017-07-22] MEDS: ACETAMINOPHEN 325 MG TABLET (FP) PO PRN ×2 (11:59→23:03)
--- NOTE | 2017-07-22 12:15 | CON.ID ---
Consult Consult Specialty:: Infectious Disease - History of Present Illness History of Present Illness: Asked to evaluate this 62 y.o. female with PMH of DM, HTN, asthma who presents with lethargy/AMS. She states she started to feel weak about 5 days ago and it progressively got worse. Pt reports feeling chills. Denies fever/diaphoresis, cough/dyspnea, chest pain, H/A, focal weakness, abd pain/n/v/d but states she has had urinary frequency and noticed blood-tinged urine. In the ER she was found to have low BP, tachycardia, mild leukocytosis, slight temp elevation ( Tmax 99.6) and severe hypoglycemia. Currently in the ICU on insulin drip. States she is feeling better. 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 No: AFIB, Aneurysm, Aortic Insufficiency, Aortic Stenosis, CAD, CHF, Deep Vein Thrombosis, Hyperlipdemia, [place], Mitral Insufficiency, Mitral Stenosis, Murmur, Pulmonary Hypertension, Other Pulmonary: Yes: Asthma. No: Bronchitis, Cancer, COPD, O2 Dependent, Pneumonia, Previously Intubated, Pulmonary Embolus, Pulmonary Fibrosis, Sleep Apnea, Other Hepatobiliary: No: Cirrhosis, Cholelithiasis, Cholecystitis, Choledocholithiasis , Hepatitis A, Hepatitis B, Hepatitis C, Other Reproductive: No: Ectopic , Endometriosis, Fibroids, PID, Polycystic Ovary Syndrome, Postmenopausal, Other Heme/Onc: No: Anemia, B12 Deficiency, Bleeding Disorder, Cancer, Current Chemotherapy, Current Radiation Therapy, Hemochromatosis, Hypercoaguable State, Myeloproliferative Synd, Sickle Cell Disease, Sickle Cell Trait, Thrombocytopenia, Other Infectious Disease: No: AIDS, C-Diff, Herpes Zoster, HIV, MRSA, STD's, Tuberculosis, VREF, Other Psych: No: Addictions, Anxiety, Bipolar, Depression, Panic, Psychosis, Schizophrenia, Other Musculoskeletal: No: Bursitis, Chronic low back pain, Hemiparesis, Hemiplegia, Osteoarthritis, Paraplegia, Other Rheumatology: No: Fibromyalgia, Gout, Lupus, Rheumatoid Arthritis, Sarcoidosis, Vasculitis, Other Endocrine: Yes: Diabetes Mellitus. No: Eastlake's Disease, [place]'s Disease, Diabetes Insipidus, Hyperparathyroidism, Hyperthyroidism, Hypothyroidism, Osteopenia, SIADH, Other - Past Surgical History Past Surgical History: Yes: None. No: AAA Repair, AICD, Amputation, Appendectomy, Arthrosocopy, AV Fistula/Graft, Bariatric Surgery, Breast Biopsy, Bypass, CABG, Carotid Endarterectomy, Cataract Removal, Cholecystectomy, Colectomy, Colonoscopy, Colostomy, Craniotomy, , Cystectomy, Hernia Repair, Hysterectomy, Ileal Conduit, Ileosotomy, Joint Replacement, Kidney Transplant, Laminectomy, Liver Transplant, Mastectomy, Nephrectomy, Oopherectomy , Orchiectomy, Permanent Pacemaker, Prostatectomy, Splenectomy, Stent, Thoracotomy, TURP, Tonsillectomy, Tubal Ligation, Upper Endoscopy, Valve Replacement, Vasectomy, Vein Stripping/Ligation - Alcohol/Substance Use Hx Alcohol Use: No - Smoking History Smoking history: Never smoked Have you smoked in the past 12 months: No - Social History Usual Living Arrangement: With Spouse History of Recent Travel: No Home Medications - Allergies Allergies/Adverse Reactions: Allergies Allergy/AdvReac Type Severity Reaction Status Date / Time No Known Allergies Allergy Verified 07/21/17 15:58 - Home Medications Home Medications: Ambulatory Orders Irbesartan 300 mg PO DAILY 07/21/17 Metformin HCl [Metformin HCl ER] 1,000 mg PO BID 07/21/17 Review of Systems - Review of Systems Constitutional: reports: No Symptoms Eyes: reports: No Symptoms HENT: reports: No Symptoms Neck: reports: No Symptoms Cardiovascular: reports: No Symptoms Respiratory: reports: No Symptoms Gastrointestinal: reports: No Symptoms Genitourinary: reports: Frequency Breasts: reports: No Symptoms Reported Musculoskeletal: reports: No Symptoms Integumentary: reports: No Symptoms Neurological: reports: Weakness Endocrine: reports: No Symptoms Hematology/Lymphatic: reports: No Symptoms Psychiatric: reports: No Symptoms Physical Exam Vital Signs: Vital Signs Temperature 98.5 F 07/22/17 10:00 Pulse Rate 93 H 07/22/17 10:00 Respiratory Rate 19 07/22/17 10:00 Blood Pressure 104/55 07/22/17 10:00 O2 Sat by Pulse Oximetry (%) 95 07/22/17 10:01 Constitutional: Yes: No Distress, Calm Eyes: Yes: WNL HENT: Yes: WNL Neck: Yes: Supple Cardiovascular: Yes: Tachycardia Respiratory: Yes: CTA Bilaterally Gastrointestinal: Yes: Normal Bowel Sounds, Soft Renal/: Yes: WNL Breast(s): Yes: WNL Musculoskeletal: Yes: WNL Extremities: Yes: WNL Edema: No Integumentary: Yes: WNL Neurological: Yes: Alert, Oriented Psychiatric: Yes: Alert Labs: CBC, BMP 07/22/17 06:05 Microbiology 07/21/17 17:24 Blood - Peripheral Venous Blood Culture - Preliminary - Gram +cocci in chains Pending Organism 07/21/17 19:30 Blood - Peripheral Venous Blood Culture - Preliminary Pending Organism Urine culture- results pending lactate- 1.2 u/a: turbid, 3+ bloody, 3+ leuk esterase Imaging - Results Chest X-ray: Report Reviewed (no infiltrates) Problem List - Problems (1) DKA (diabetic ketoacidoses) Code(s): E13.10 - OTH DIABETES MELLITUS WITH KETOACIDOSIS WITHOUT COMA (2) Diabetes Code(s): E11.9 - TYPE 2 DIABETES MELLITUS WITHOUT COMPLICATIONS (3) Sepsis Code(s): A41.9 - SEPSIS, UNSPECIFIED ORGANISM Qualifiers: Sepsis type: sepsis due to unspecified organism Qualified Code(s): A41.9 - Sepsis, unspecified organism (4) UTI (urinary tract infection) Code(s): N39.0 - URINARY TRACT INFECTION, SITE NOT SPECIFIED Qualifiers: Urinary tract infection type: site unspecified Hematuria presence: with hematuria Qualified Code(s): N39.0 - Urinary tract infection, site not specified; R31.9 - Hematuria, unspecified; R31.9 - Hematuria, unspecified Assessment/Plan 62 y.o. female with history of DM (hadn't taken metformin for a few days) , HTN , Asthma presenting with lethargy, chills noted to have hyperglycemia, hypotension, tachycardia, RUSSELL, mild temp elevation and leukocytosis DKA RUSSELL - improving Possible UTI Gram pos Bacteremia - continue Levaquin, start Vancomycin IV - continue hydration, on Insulin drip - monitor temps, wbc trend - f/u culture isolates rest of care per ICU, case discussed cc time: 40 min
--- NOTE | 2017-07-22 12:37 | PN ---
Teaching Attending Note Name of Resident: Tristan Hoang ATTENDING PHYSICIAN STATEMENT I saw and evaluated the patient. I reviewed the resident's note and discussed the case with the resident. I agree with the resident's findings and plan as documented. SUBJECTIVE: Patient seen and examined in the ICU. Awake and alert. Remains on IV Insulin drip. No CP or SOB. Reports left hip pain due to fall. Intake & Output 07/19/17 07/20/17 07/21/17 07/22/17 23:59 23:59 23:59 23:59 Intake Total 850 Balance 850 Weight 165 lb 167 lb Last Vital Signs Temp Pulse Resp BP Pulse Ox 98.5 F 90 18 102/49 95 07/22/17 10:00 07/22/17 12:00 07/22/17 12:00 07/22/17 12:00 07/22/17 10:01 Active Medications Acetaminophen (Tylenol -) 650 mg PO Q6H PRN PRN Reason: FEVER OR PAIN Last Admin: 07/22/17 11:59 Dose: 650 mg Sodium Chloride (Normal Saline -) 1,000 mls @ 100 mls/hr IV ASDIR JESSICA Last Admin: 07/21/17 23:28 Dose: 100 mls/hr Levofloxacin (Levaquin 250 Mg Premixed Ivpb -) 250 mg in 50 mls @ 50 mls/hr IVPB DAILY JESSICA Last Admin: 07/22/17 09:22 Dose: 50 mls/hr Insulin Human Regular 100 (units/ Sodium Chloride) 100 mls @ 7.54 mls/hr IVPB TITR JESSICA; 0.1 UNITS/KG/HR PRN Reason: Protocol Last Admin: 07/22/17 06:49 Dose: 0.1 units/kg/hr, 7.54 mls/hr Vancomycin HCl 1,000 mg/ (Dextrose) 250 mls @ 166.667 mls/hr IVPB ONCE ONE PRN Reason: Protocol Stop: 07/22/17 14:29 Vancomycin HCl 1,000 mg/ (Dextrose) 250 mls @ 166.667 mls/hr IVPB Q12H JESSICA PRN Reason: Protocol Dextrose/Sodium Chloride (D5-Ns -) 1,000 mls @ 75 mls/hr IV ASDIR JESSICA Constitutional: Yes: NAD Eyes: WNL, Conjunctiva Clear, EOM Intact HENT: Yes: WNL, Atraumatic, Normocephalic Neck: Yes: WNL, Supple, Trachea Midline Cardiovascular: Yes: WNL, Regular Rate and Rhythm Respiratory: Yes: CTA Bilaterally Gastrointestinal: Yes: WNL, Normal Bowel Sounds, Soft ...Rectal Exam: Yes: Deferred Renal/: Yes: WNL Breast(s): Yes: WNL Musculoskeletal: Yes: WNL Extremities: Yes: WNL Edema: No Peripheral Pulses WNL: Yes Neurological: Yes: WNL, Alert, Oriented ...Motor Strength: WNL Psychiatric: Yes: WNL, Alert, Oriented Labs: Laboratory Results - last 24 hr 07/21/17 07/21/17 07/21/17 16:18 16:19 16:19 WBC 12.1 H RBC 3.24 L Hgb 8.7 L Hct 29.1 L MCV 89.9 MCH 26.8 MCHC 29.9 L RDW 16.8 H Plt Count 245 MPV 11.0 Neutrophils % No Result Required. Neutrophils % (Manual) 62.0 Band Neutrophils % 24.0 Lymphocytes % No Result Required. Lymphocytes % (Manual) 1.0 L Monocytes % (Manual) 13 H Basophils % (Manual) 0.0 Myelocytes % (Man) 0 Metamyelocytes 0 Hypochromia 1+ Toxic Granulation Platelet Estimate Normal Platelet Comment Present Polychromasia 0 Poikilocytosis 0 Anisocytosis 1+ Microcytosis 0 Macrocytosis 0 Stomatocytes 1+ PT with INR 12.90 H INR 1.14 Puncture Site ABG pH ABG pCO2 at Pt Temp ABG pO2 at Pt Temp ABG HCO3 ABG O2 Sat (Measured) ABG O2 Content ABG Base Excess [place] Test Oxygen Flow Rate Sodium Potassium Chloride Carbon Dioxide Anion Gap BUN Creatinine Creat Clearance w eGFR POC Glucometer [phone] Random Glucose Lactic Acid Calcium Phosphorus Magnesium Total Bilirubin AST ALT Alkaline Phosphatase Creatine Kinase Creatine Kinase Index CK-MB (CK-2) Troponin I Total Protein Albumin Urine Color Urine Appearance Urine pH Ur Specific [place] Urine Protein Urine Glucose (UA) Urine Ketones Urine Blood Urine Nitrite Urine Bilirubin Urine Urobilinogen Ur Leukocyte Esterase Urine WBC (Auto) Urine RBC (Auto) Ur Epithelial Cells Urine Bacteria Urine Mucus Urine Yeast Acetone, Qual Blood Type Antibody Screen 07/21/17 07/21/17 07/21/17 16:19 16:19 16:19 WBC RBC Hgb Hct MCV MCH MCHC RDW Plt Count MPV Neutrophils % Neutrophils % (Manual) Band Neutrophils % Lymphocytes % Lymphocytes % (Manual) Monocytes % (Manual) Basophils % (Manual) Myelocytes % (Man) Metamyelocytes Hypochromia Toxic Granulation Platelet Estimate Platelet Comment Polychromasia Poikilocytosis Anisocytosis Microcytosis Macrocytosis Stomatocytes PT with INR INR Puncture Site ABG pH ABG pCO2 at Pt Temp ABG pO2 at Pt Temp ABG HCO3 ABG O2 Sat (Measured) ABG O2 Content ABG Base Excess [place] Test Oxygen Flow Rate Sodium 119 L* Potassium 5.8 H Chloride 81 L Carbon Dioxide 18 L Anion Gap 20 H BUN 41 H Creatinine 2.0 H Creat Clearance w eGFR 25.08 POC Glucometer Random Glucose 937 H* Lactic Acid 1.7 Calcium 7.8 L Phosphorus Magnesium Total Bilirubin 0.7 AST 41 H ALT 25 Alkaline Phosphatase 165 H Creatine Kinase 1060 H Creatine Kinase Index 0.2 CK-MB (CK-2) 2.922 Troponin I < 0.02 Total Protein 6.8 Albumin 2.3 L Urine Color Urine Appearance Urine pH Ur Specific [place] Urine Protein Urine Glucose (UA) Urine Ketones Urine Blood Urine Nitrite Urine Bilirubin Urine Urobilinogen Ur Leukocyte Esterase Urine WBC (Auto) Urine RBC (Auto) Ur Epithelial Cells Urine Bacteria Urine Mucus Urine Yeast Acetone, Qual Blood Type Antibody Screen 07/21/17 07/21/17 12 16:19 16:19 16:42 WBC RBC Hgb Hct MCV MCH MCHC RDW Plt Count MPV Neutrophils % Neutrophils % (Manual) Band Neutrophils % Lymphocytes % Lymphocytes % (Manual) Monocytes % (Manual) Basophils % (Manual) Myelocytes % (Man) Metamyelocytes Hypochromia Toxic Granulation Platelet Estimate Platelet Comment Polychromasia Poikilocytosis Anisocytosis Microcytosis Macrocytosis Stomatocytes PT with INR INR Puncture Site ABG pH ABG pCO2 at Pt Temp ABG pO2 at Pt Temp ABG HCO3 ABG O2 Sat (Measured) ABG O2 Content ABG Base Excess [place] Test Oxygen Flow Rate Sodium Potassium Chloride Carbon Dioxide Anion Gap BUN Creatinine Creat Clearance w eGFR POC Glucometer Random Glucose Lactic Acid Calcium Phosphorus Magnesium Total Bilirubin AST ALT Alkaline Phosphatase Creatine Kinase Creatine Kinase Index CK-MB (CK-2) Troponin I Total Protein Albumin Urine Color Yellow Urine Appearance Turbid Urine pH 5.0 Ur Specific [place] 1.018 Urine Protein 1+ H Urine Glucose (UA) 3+ H Urine Ketones 1+ H Urine Blood 3+ H Urine Nitrite Negative Urine Bilirubin Negative Urine Urobilinogen Negative Ur Leukocyte Esterase 3+ H Urine WBC (Auto) 425 Urine RBC (Auto) 32 Ur Epithelial Cells Rare Urine Bacteria Many Urine Mucus Many Urine Yeast Few Acetone, Qual Positive moderate 2+ H Blood Type A POSITIVE Antibody Screen Negative 07/21/17 07/21/17 07/21/17 18:21 22:20 22:20 WBC RBC Hgb Hct MCV MCH MCHC RDW Plt Count MPV Neutrophils % Neutrophils % (Manual) Band Neutrophils % Lymphocytes % Lymphocytes % (Manual) Monocytes % (Manual) Basophils % (Manual) Myelocytes % (Man) Metamyelocytes Hypochromia Toxic Granulation Platelet Estimate Platelet Comment Polychromasia Poikilocytosis Anisocytosis Microcytosis Macrocytosis Stomatocytes PT with INR INR Puncture Site Right radial ABG pH 7.37 ABG pCO2 at Pt Temp 28.0 L ABG pO2 at Pt Temp 77.0 L ABG HCO3 15.8 L ABG O2 Sat (Measured) 94.9 ABG O2 Content 10.2 L ABG Base Excess -8.2 L [place] Test Positive Oxygen Flow Rate No Sodium 132 L D Potassium 4.9 Chloride 100 D Carbon Dioxide 17 L Anion Gap 15 BUN 34 H Creatinine 1.4 H D Creat Clearance w eGFR 37.86 POC Glucometer Random Glucose 578 H* D Lactic Acid Calcium 6.8 L* Phosphorus Magnesium Total Bilirubin 0.6 AST 30 D ALT 20 Alkaline Phosphatase 143 H Creatine Kinase Creatine Kinase Index CK-MB (CK-2) Troponin I Total Protein 5.5 L Albumin 1.9 L Urine Color Urine Appearance Urine pH Ur Specific [place] Urine Protein Urine Glucose (UA) Urine Ketones Urine Blood Urine Nitrite Urine Bilirubin Urine Urobilinogen Ur Leukocyte Esterase Urine WBC (Auto) Urine RBC (Auto) Ur Epithelial Cells Urine Bacteria Urine Mucus Urine Yeast Acetone, Qual Positive small 1+ H Blood Type Antibody Screen 07/21/17 07/21/17 07/22/17 23:10 23:10 00:09 WBC 12.2 H RBC 3.07 L Hgb 8.4 L Hct 26.1 L MCV 85.2 MCH 27.3 MCHC 32.1 RDW 16.0 H Plt Count 224 MPV 9.9 Neutrophils % No Result Required. Neutrophils % (Manual) 77.0 D Band Neutrophils % 10.0 Lymphocytes % No Result Required. Lymphocytes % (Manual) 3.0 L D Monocytes % (Manual) 10 Basophils % (Manual) Myelocytes % (Man) Metamyelocytes Hypochromia 1+ Toxic Granulation Few Platelet Estimate Platelet Comment Polychromasia Poikilocytosis Anisocytosis 1+ Microcytosis Macrocytosis Stomatocytes PT with INR INR Puncture Site ABG pH ABG pCO2 at Pt Temp ABG pO2 at Pt Temp ABG HCO3 ABG O2 Sat (Measured) ABG O2 Content ABG Base Excess [place] Test Oxygen Flow Rate Sodium Potassium Chloride Carbon Dioxide Anion Gap BUN Creatinine Creat Clearance w eGFR POC Glucometer [phone] Random Glucose Lactic Acid 1.2 Calcium Phosphorus Magnesium Total Bilirubin AST ALT Alkaline Phosphatase Creatine Kinase Creatine Kinase Index CK-MB (CK-2) Troponin I Total Protein Albumin Urine Color Urine Appearance Urine pH Ur Specific [place] Urine Protein Urine Glucose (UA) Urine Ketones Urine Blood Urine Nitrite Urine Bilirubin Urine Urobilinogen Ur Leukocyte Esterase Urine WBC (Auto) Urine RBC (Auto) Ur Epithelial Cells Urine Bacteria Urine Mucus Urine Yeast Acetone, Qual Blood Type Antibody Screen 07/22/17 07/22/17 07/22/17 06:05 06:05 06:08 WBC 13.8 H RBC 2.94 L Hgb 7.9 L Hct 25.1 L MCV 85.5 MCH 26.8 MCHC 31.3 L RDW 16.1 H Plt Count 234 MPV 10.7 Neutrophils % No Result Required. Neutrophils % (Manual) Band Neutrophils % Lymphocytes % No Result Required. Lymphocytes % (Manual) Monocytes % (Manual) Basophils % (Manual) Myelocytes % (Man) Metamyelocytes Hypochromia Toxic Granulation Platelet Estimate Platelet Comment Polychromasia Poikilocytosis Anisocytosis Microcytosis Macrocytosis Stomatocytes PT with INR INR Puncture Site ABG pH ABG pCO2 at Pt Temp ABG pO2 at Pt Temp ABG HCO3 ABG O2 Sat (Measured) ABG O2 Content ABG Base Excess [place] Test Oxygen Flow Rate Sodium 133 L Potassium 5.0 Chloride 103 Carbon Dioxide 13 L D Anion Gap 17 H BUN 33 H Creatinine 1.1 H D Creat Clearance w eGFR 50.01 POC Glucometer > 400 Random Glucose 503 H* Lactic Acid Calcium 6.8 L* Phosphorus 2.6 Magnesium 2.8 H Total Bilirubin 0.6 AST 27 ALT 19 Alkaline Phosphatase 132 H Creatine Kinase Creatine Kinase Index CK-MB (CK-2) Troponin I Total Protein 5.4 L Albumin 1.7 L Urine Color Urine Appearance Urine pH Ur Specific [place] Urine Protein Urine Glucose (UA) Urine Ketones Urine Blood Urine Nitrite Urine Bilirubin Urine Urobilinogen Ur Leukocyte Esterase Urine WBC (Auto) Urine RBC (Auto) Ur Epithelial Cells Urine Bacteria Urine Mucus Urine Yeast Acetone, Qual Blood Type Antibody Screen 07/22/17 07/22/17 07/22/17 08:10 08:15 09:28 WBC RBC Hgb Hct MCV MCH MCHC RDW Plt Count MPV Neutrophils % Neutrophils % (Manual) Band Neutrophils % Lymphocytes % Lymphocytes % (Manual) Monocytes % (Manual) Basophils % (Manual) Myelocytes % (Man) Metamyelocytes Hypochromia Toxic Granulation Platelet Estimate Platelet Comment Polychromasia Poikilocytosis Anisocytosis Microcytosis Macrocytosis Stomatocytes PT with INR INR Puncture Site ABG pH ABG pCO2 at Pt Temp ABG pO2 at Pt Temp ABG HCO3 ABG O2 Sat (Measured) ABG O2 Content ABG Base Excess [place] Test Oxygen Flow Rate Sodium Potassium Chloride Carbon Dioxide Anion Gap BUN Creatinine Creat Clearance w eGFR POC Glucometer > [phone] Random Glucose Lactic Acid Calcium Phosphorus Cancelled Magnesium Cancelled Total Bilirubin AST ALT Alkaline Phosphatase Creatine Kinase Creatine Kinase Index CK-MB (CK-2) Troponin I Total Protein Albumin Urine Color Urine Appearance Urine pH Ur Specific [place] Urine Protein Urine Glucose (UA) Urine Ketones Urine Blood Urine Nitrite Urine Bilirubin Urine Urobilinogen Ur Leukocyte Esterase Urine WBC (Auto) Urine RBC (Auto) Ur Epithelial Cells Urine Bacteria Urine Mucus Urine Yeast Acetone, Qual Blood Type Antibody Screen 07/22/17 10:25 WBC RBC Hgb Hct MCV MCH MCHC RDW Plt Count MPV Neutrophils % Neutrophils % (Manual) Band Neutrophils % Lymphocytes % Lymphocytes % (Manual) Monocytes % (Manual) Basophils % (Manual) Myelocytes % (Man) Metamyelocytes Hypochromia Toxic Granulation Platelet Estimate Platelet Comment Polychromasia Poikilocytosis Anisocytosis Microcytosis Macrocytosis Stomatocytes PT with INR INR Puncture Site ABG pH ABG pCO2 at Pt Temp ABG pO2 at Pt Temp ABG HCO3 ABG O2 Sat (Measured) ABG O2 Content ABG Base Excess [place] Test Oxygen Flow Rate Sodium Potassium Chloride Carbon Dioxide Anion Gap BUN Creatinine Creat Clearance w eGFR POC Glucometer [phone] Random Glucose Lactic Acid Calcium Phosphorus Magnesium Total Bilirubin AST ALT Alkaline Phosphatase Creatine Kinase Creatine Kinase Index CK-MB (CK-2) Troponin I Total Protein Albumin Urine Color Urine Appearance Urine pH Ur Specific [place] Urine Protein Urine Glucose (UA) Urine Ketones Urine Blood Urine Nitrite Urine Bilirubin Urine Urobilinogen Ur Leukocyte Esterase Urine WBC (Auto) Urine RBC (Auto) Ur Epithelial Cells Urine Bacteria Urine Mucus Urine Yeast Acetone, Qual Blood Type Antibody Screen Problem List - Problems (1) UTI (urinary tract infection) Code(s): N39.0 - URINARY TRACT INFECTION, SITE NOT SPECIFIED Qualifiers: Urinary tract infection type: site unspecified Hematuria presence: with hematuria Qualified Code(s): N39.0 - Urinary tract infection, site not specified; R31.9 - Hematuria, unspecified; R31.9 - Hematuria, unspecified (2) Diabetes Code(s): E11.9 - TYPE 2 DIABETES MELLITUS WITHOUT COMPLICATIONS (3) DKA (diabetic ketoacidoses) Code(s): E13.10 - OTH DIABETES MELLITUS WITH KETOACIDOSIS WITHOUT COMA (4) Hypertension Code(s): I10 - ESSENTIAL (PRIMARY) HYPERTENSION Assessment/Plan DKA / HHS UTI (?) Bacteremia HTN DM PLAN: -Insulin drip -IVF -Strict I's & O's -Monitor UOP -Replete e-lytes prn -PO as tolerated -Endocrine evaluation -VTE prophylaxis -ABX per ID -Follow cultures Dr Marrero Critical care time spent in reviewing chart, evaluating patient and formulating plan - 36 minutes.
[2017-07-22 12:38] LABS: ANION GAP 10 (8-16); CALCIUM 7.1 mg/dL (8.5-10.1); CO2 21 mmol/L (21-32); GLUCOSE,RANDOM 208 mg/dL (74-106); MAGNESIUM 2.7 mg/dL (1.8-2.4); PHOSPHOROUS 1.3 mg/dL (2.5-4.9)
[2017-07-22] MEDS ORDERED: DEXTROSE 5%-NORMAL SALINE 1,000 ML IV SCH (12:45)
[2017-07-22] MEDS ORDERED: VANCOMYCIN 1,000 MG in DEXTROSE 5%-WATER - 250 ML IVPB ONE (13:00)
[2017-07-22] MEDS: DEXTROSE 5%-NORMAL SALINE 1,000 ML IV SCH (13:51)
--- NOTE | 2017-07-22 14:31 | PN ---
Physical Exam: SUBJECTIVE: The patient is a 62F with a PMH of DM, HTN, and asthma who presented to the ED with increased lethargy, poor PO intake x 3 days, and not taking her metformin x 3-4 days. She was found to have a UA indicating a UTI, dehydration, increased anion gap, and ketones in her urine. This morning her anion gap increased and she was started on an insulin drip. Her BG normalized and I continued her on the insulin drip with D5W-NS. She has no overnight events and no acute complaints. OBJECTIVE: Vital Signs Period Temp Pulse Resp BP Sys/Slade Pulse Ox Last 24 Hr 98.5 F-99.6 F 88-99 15-25 85-160/40-110 93-100 GENERAL: The patient is awake, alert, and fully oriented, in no acute distress. HEAD: Normal with no signs of trauma. EYES: PERRL, extraocular movements intact, sclera anicteric, conjunctiva clear. No ptosis. NECK: Trachea midline, full range of motion, supple. LUNGS: Breath sounds equal, clear to auscultation bilaterally, no wheezes, no crackles, no accessory muscle use. HEART: Regular rate and rhythm, S1, S2 without murmur, rub or gallop. ABDOMEN: Soft, nontender, nondistended, normoactive bowel sounds, no guarding, no rebound, no hepatosplenomegaly, no masses. EXTREMITIES: 2+ pulses, warm, well-perfused, no edema. NEUROLOGICAL: Cranial nerves II through XII grossly intact. Normal speech, gait not observed. PSYCH: Normal mood, normal affect. SKIN: Warm, dry, normal turgor, no rashes or lesions noted Laboratory Results - last 24 hr 07/21/17 07/21/17 07/21/17 16:18 16:19 16:19 WBC 12.1 H RBC 3.24 L Hgb 8.7 L Hct 29.1 L MCV 89.9 MCH 26.8 MCHC 29.9 L RDW 16.8 H Plt Count 245 MPV 11.0 Neutrophils % No Result Required. Neutrophils % (Manual) 62.0 Band Neutrophils % 24.0 Lymphocytes % No Result Required. Lymphocytes % (Manual) 1.0 L Monocytes % (Manual) 13 H Basophils % (Manual) 0.0 Myelocytes % (Man) 0 Metamyelocytes 0 Hypochromia 1+ Toxic Granulation Platelet Estimate Normal Platelet Comment Present Polychromasia 0 Poikilocytosis 0 Anisocytosis 1+ Microcytosis 0 Macrocytosis 0 Stomatocytes 1+ PT with INR 12.90 H INR 1.14 Puncture Site ABG pH ABG pCO2 at Pt Temp ABG pO2 at Pt Temp ABG HCO3 ABG O2 Sat (Measured) ABG O2 Content ABG Base Excess Casper Test Oxygen Flow Rate Sodium Potassium Chloride Carbon Dioxide Anion Gap BUN Creatinine Creat Clearance w eGFR POC Glucometer [phone] Random Glucose Lactic Acid Calcium Phosphorus Magnesium Total Bilirubin AST ALT Alkaline Phosphatase Creatine Kinase Creatine Kinase Index CK-MB (CK-2) Troponin I Total Protein Albumin Urine Color Urine Appearance Urine pH Ur Specific [place] Urine Protein Urine Glucose (UA) Urine Ketones Urine Blood Urine Nitrite Urine Bilirubin Urine Urobilinogen Ur Leukocyte Esterase Urine WBC (Auto) Urine RBC (Auto) Ur Epithelial Cells Urine Bacteria Urine Mucus Urine Yeast Acetone, Qual Blood Type Antibody Screen 07/21/17 07/21/17 07/21/17 16:19 16:19 16:19 WBC RBC Hgb Hct MCV MCH MCHC RDW Plt Count MPV Neutrophils % Neutrophils % (Manual) Band Neutrophils % Lymphocytes % Lymphocytes % (Manual) Monocytes % (Manual) Basophils % (Manual) Myelocytes % (Man) Metamyelocytes Hypochromia Toxic Granulation Platelet Estimate Platelet Comment Polychromasia Poikilocytosis Anisocytosis Microcytosis Macrocytosis Stomatocytes PT with INR INR Puncture Site ABG pH ABG pCO2 at Pt Temp ABG pO2 at Pt Temp ABG HCO3 ABG O2 Sat (Measured) ABG O2 Content ABG Base Excess [place] Test Oxygen Flow Rate Sodium 119 L* Potassium 5.8 H Chloride 81 L Carbon Dioxide 18 L Anion Gap 20 H BUN 41 H Creatinine 2.0 H Creat Clearance w eGFR 25.08 POC Glucometer Random Glucose 937 H* Lactic Acid 1.7 Calcium 7.8 L Phosphorus Magnesium Total Bilirubin 0.7 AST 41 H ALT 25 Alkaline Phosphatase 165 H Creatine Kinase 1060 H Creatine Kinase Index 0.2 CK-MB (CK-2) 2.922 Troponin I < 0.02 Total Protein 6.8 Albumin 2.3 L Urine Color Urine Appearance Urine pH Ur Specific [place] Urine Protein Urine Glucose (UA) Urine Ketones Urine Blood Urine Nitrite Urine Bilirubin Urine Urobilinogen Ur Leukocyte Esterase Urine WBC (Auto) Urine RBC (Auto) Ur Epithelial Cells Urine Bacteria Urine Mucus Urine Yeast Acetone, Qual Blood Type Antibody Screen 07/21/17 07/21/17 07/21/17 16:19 16:19 16:42 WBC RBC Hgb Hct MCV MCH MCHC RDW Plt Count MPV Neutrophils % Neutrophils % (Manual) Band Neutrophils % Lymphocytes % Lymphocytes % (Manual) Monocytes % (Manual) Basophils % (Manual) Myelocytes % (Man) Metamyelocytes Hypochromia Toxic Granulation Platelet Estimate Platelet Comment Polychromasia Poikilocytosis Anisocytosis Microcytosis Macrocytosis Stomatocytes PT with INR INR Puncture Site ABG pH ABG pCO2 at Pt Temp ABG pO2 at Pt Temp ABG HCO3 ABG O2 Sat (Measured) ABG O2 Content ABG Base Excess [place] Test Oxygen Flow Rate Sodium Potassium Chloride Carbon Dioxide Anion Gap BUN Creatinine Creat Clearance w eGFR POC Glucometer Random Glucose Lactic Acid Calcium Phosphorus Magnesium Total Bilirubin AST ALT Alkaline Phosphatase Creatine Kinase Creatine Kinase Index CK-MB (CK-2) Troponin I Total Protein Albumin Urine Color Yellow Urine Appearance Turbid Urine pH 5.0 Ur Specific [place] 1.018 Urine Protein 1+ H Urine Glucose (UA) 3+ H Urine Ketones 1+ H Urine Blood 3+ H Urine Nitrite Negative Urine Bilirubin Negative Urine Urobilinogen Negative Ur Leukocyte Esterase 3+ H Urine WBC (Auto) 425 Urine RBC (Auto) 32 Ur Epithelial Cells Rare Urine Bacteria Many Urine Mucus Many Urine Yeast Few Acetone, Qual Positive moderate 2+ H Blood Type A POSITIVE Antibody Screen Negative 07/21/17 07/21/17 07/21/17 18:21 22:20 22:20 WBC RBC Hgb Hct MCV MCH MCHC RDW Plt Count MPV Neutrophils % Neutrophils % (Manual) Band Neutrophils % Lymphocytes % Lymphocytes % (Manual) Monocytes % (Manual) Basophils % (Manual) Myelocytes % (Man) Metamyelocytes Hypochromia Toxic Granulation Platelet Estimate Platelet Comment Polychromasia Poikilocytosis Anisocytosis Microcytosis Macrocytosis Stomatocytes PT with INR INR Puncture Site Right radial ABG pH 7.37 ABG pCO2 at Pt Temp 28.0 L ABG pO2 at Pt Temp 77.0 L ABG HCO3 15.8 L ABG O2 Sat (Measured) 94.9 ABG O2 Content 10.2 L ABG Base Excess -8.2 L Casper Test Positive Oxygen Flow Rate No Sodium 132 L D Potassium 4.9 Chloride 100 D Carbon Dioxide 17 L Anion Gap 15 BUN 34 H Creatinine 1.4 H D Creat Clearance w eGFR 37.86 POC Glucometer Random Glucose 578 H* D Lactic Acid Calcium 6.8 L* Phosphorus Magnesium Total Bilirubin 0.6 AST 30 D ALT 20 Alkaline Phosphatase 143 H Creatine Kinase Creatine Kinase Index CK-MB (CK-2) Troponin I Total Protein 5.5 L Albumin 1.9 L Urine Color Urine Appearance Urine pH Ur Specific [place] Urine Protein Urine Glucose (UA) Urine Ketones Urine Blood Urine Nitrite Urine Bilirubin Urine Urobilinogen Ur Leukocyte Esterase Urine WBC (Auto) Urine RBC (Auto) Ur Epithelial Cells Urine Bacteria Urine Mucus Urine Yeast Acetone, Qual Positive small 1+ H Blood Type Antibody Screen 07/21/17 07/21/17 07/22/17 23:10 23:10 00:09 WBC 12.2 H RBC 3.07 L Hgb 8.4 L Hct 26.1 L MCV 85.2 MCH 27.3 MCHC 32.1 RDW 16.0 H Plt Count 224 MPV 9.9 Neutrophils % No Result Required. Neutrophils % (Manual) 77.0 D Band Neutrophils % 10.0 Lymphocytes % No Result Required. Lymphocytes % (Manual) 3.0 L D Monocytes % (Manual) 10 Basophils % (Manual) Myelocytes % (Man) Metamyelocytes Hypochromia 1+ Toxic Granulation Few Platelet Estimate Platelet Comment Polychromasia Poikilocytosis Anisocytosis 1+ Microcytosis Macrocytosis Stomatocytes PT with INR INR Puncture Site ABG pH ABG pCO2 at Pt Temp ABG pO2 at Pt Temp ABG HCO3 ABG O2 Sat (Measured) ABG O2 Content ABG Base Excess [place] Test Oxygen Flow Rate Sodium Potassium Chloride Carbon Dioxide Anion Gap BUN Creatinine Creat Clearance w eGFR POC Glucometer [phone] Random Glucose Lactic Acid 1.2 Calcium Phosphorus Magnesium Total Bilirubin AST ALT Alkaline Phosphatase Creatine Kinase Creatine Kinase Index CK-MB (CK-2) Troponin I Total Protein Albumin Urine Color Urine Appearance Urine pH Ur Specific [place] Urine Protein Urine Glucose (UA) Urine Ketones Urine Blood Urine Nitrite Urine Bilirubin Urine Urobilinogen Ur Leukocyte Esterase Urine WBC (Auto) Urine RBC (Auto) Ur Epithelial Cells Urine Bacteria Urine Mucus Urine Yeast Acetone, Qual Blood Type Antibody Screen 07/22/17 07/22/1717 06:05 06:05 06:08 WBC 13.8 H RBC 2.94 L Hgb 7.9 L Hct 25.1 L MCV 85.5 MCH 26.8 MCHC 31.3 L RDW 16.1 H Plt Count 234 MPV 10.7 Neutrophils % No Result Required. Neutrophils % (Manual) Band Neutrophils % Lymphocytes % No Result Required. Lymphocytes % (Manual) Monocytes % (Manual) Basophils % (Manual) Myelocytes % (Man) Metamyelocytes Hypochromia Toxic Granulation Platelet Estimate Platelet Comment Polychromasia Poikilocytosis Anisocytosis Microcytosis Macrocytosis Stomatocytes PT with INR INR Puncture Site ABG pH ABG pCO2 at Pt Temp ABG pO2 at Pt Temp ABG HCO3 ABG O2 Sat (Measured) ABG O2 Content ABG Base Excess [place] Test Oxygen Flow Rate Sodium 133 L Potassium 5.0 Chloride 103 Carbon Dioxide 13 L D Anion Gap 17 H BUN 33 H Creatinine 1.1 H D Creat Clearance w eGFR 50.01 POC Glucometer > 400 Random Glucose 503 H* Lactic Acid Calcium 6.8 L* Phosphorus 2.6 Magnesium 2.8 H Total Bilirubin 0.6 AST 27 ALT 19 Alkaline Phosphatase 132 H Creatine Kinase Creatine Kinase Index CK-MB (CK-2) Troponin I Total Protein 5.4 L Albumin 1.7 L Urine Color Urine Appearance Urine pH Ur Specific [place] Urine Protein Urine Glucose (UA) Urine Ketones Urine Blood Urine Nitrite Urine Bilirubin Urine Urobilinogen Ur Leukocyte Esterase Urine WBC (Auto) Urine RBC (Auto) Ur Epithelial Cells Urine Bacteria Urine Mucus Urine Yeast Acetone, Qual Blood Type Antibody Screen 07/22/17 07/22/17 07/22/17 08:10 08:15 09:28 WBC RBC Hgb Hct MCV MCH MCHC RDW Plt Count MPV Neutrophils % Neutrophils % (Manual) Band Neutrophils % Lymphocytes % Lymphocytes % (Manual) Monocytes % (Manual) Basophils % (Manual) Myelocytes % (Man) Metamyelocytes Hypochromia Toxic Granulation Platelet Estimate Platelet Comment Polychromasia Poikilocytosis Anisocytosis Microcytosis Macrocytosis Stomatocytes PT with INR INR Puncture Site ABG pH ABG pCO2 at Pt Temp ABG pO2 at Pt Temp ABG HCO3 ABG O2 Sat (Measured) ABG O2 Content ABG Base Excess [place] Test Oxygen Flow Rate Sodium Potassium Chloride Carbon Dioxide Anion Gap BUN Creatinine Creat Clearance w eGFR POC Glucometer > [phone] Random Glucose Lactic Acid Calcium Phosphorus Cancelled Magnesium Cancelled Total Bilirubin AST ALT Alkaline Phosphatase Creatine Kinase Creatine Kinase Index CK-MB (CK-2) Troponin I Total Protein Albumin Urine Color Urine Appearance Urine pH Ur Specific [place] Urine Protein Urine Glucose (UA) Urine Ketones Urine Blood Urine Nitrite Urine Bilirubin Urine Urobilinogen Ur Leukocyte Esterase Urine WBC (Auto) Urine RBC (Auto) Ur Epithelial Cells Urine Bacteria Urine Mucus Urine Yeast Acetone, Qual Blood Type Antibody Screen 07/22/17 07/22/17 07/22/17 10:25 12:02 12:28 WBC RBC Hgb Hct MCV MCH MCHC RDW Plt Count MPV Neutrophils % Neutrophils % (Manual) Band Neutrophils % Lymphocytes % Lymphocytes % (Manual) Monocytes % (Manual) Basophils % (Manual) Myelocytes % (Man) Metamyelocytes Hypochromia Toxic Granulation Platelet Estimate Platelet Comment Polychromasia Poikilocytosis Anisocytosis Microcytosis Macrocytosis Stomatocytes PT with INR INR Puncture Site ABG pH ABG pCO2 at Pt Temp ABG pO2 at Pt Temp ABG HCO3 ABG O2 Sat (Measured) ABG O2 Content ABG Base Excess [place] Test Oxygen Flow Rate Sodium 139 Potassium 4.1 Chloride 108 H Carbon Dioxide 21 D Anion Gap 10 BUN 27 H Creatinine 1.0 Creat Clearance w eGFR POC Glucometer [phone] Random Glucose 208 H D Lactic Acid Calcium 7.1 L Phosphorus 1.3 L D Magnesium 2.7 H Total Bilirubin AST ALT Alkaline Phosphatase Creatine Kinase Creatine Kinase Index CK-MB (CK-2) Troponin I Total Protein Albumin Urine Color Urine Appearance Urine pH Ur Specific [place] Urine Protein Urine Glucose (UA) Urine Ketones Urine Blood Urine Nitrite Urine Bilirubin Urine Urobilinogen Ur Leukocyte Esterase Urine WBC (Auto) Urine RBC (Auto) Ur Epithelial Cells Urine Bacteria Urine Mucus Urine Yeast Acetone, Qual Blood Type Antibody Screen Active Medications Generic Name Dose Route Start Last Admin Trade Name Freq PRN Reason Stop Dose Admin Acetaminophen 650 mg 07/21/17 22:31 07/22/17 11:59 Tylenol - PO 650 mg Q6H PRN Administration FEVER OR PAIN Levofloxacin 250 mg in 50 mls @ 50 mls/hr 07/22/17 10:00 07/22/17 09:22 Levaquin 250 Mg Premixed Ivpb - IVPB 50 mls/hr DAILY JESSICA Administration Vancomycin HCl 1,000 mg/ 250 mls @ 166.667 mls/hr 07/22/17 13:00 07/22/17 13: 50 Dextrose IVPB 07/22/17 14:29 166.667 mls/hr ONCE ONE Administration Protocol Vancomycin HCl 1,000 mg/ 250 mls @ 166.667 mls/hr 07/23/17 01:00 Dextrose IVPB Q12H JESSICA Protocol Dextrose/Sodium Chloride 1,000 mls @ 100 mls/hr 07/22/17 13:15 07/22/17 13:51 D5-Ns - IV 100 mls/hr ASDIR JESSICA Administration Insulin Aspart 1 vial 07/22/17 16:30 Novolog Vial Sliding Scale - SQ ACHS JESSICA Protocol ASSESSMENT/PLAN: The patient is a 62F with a PMH of DM, HTN, and asthma who presents in DKA vs HHS. Neuro: - A&Ox3 - At baseline CV: - History of HTN - Not on any BP meds Pulm: - None - CXR negative Renal: RUSSELL, likely 2/2 to dehydration - BUN/Cr 27/1.0 from 34/1.4, improving ID: - Levaquin 250 - 1 gm ceftriaxone in ED - Will add 1 g vanc for G+ cocci in anaerobic tubes found today Hem/Onc: - Hgb 7.9 from 8.4, continue to trend Endocrine: DKA - AG has improved from this morning - AG 10, from 17 - CO2 21 from 13 - D/C insulin drip - Continue D5 1/2 NS - Added sliding scale insulin MSK: - Patient was complaining of L hip pain - CXR pending PPX: - SCD's FEN (Fluids, electrolytes, nutrition): - Diabetic/sodium diet - D5-1/2 NS at 100 Dispo: - Continue to monitor in ICU Visit type - Emergency Visit Emergency Visit: Yes ED Registration Date: 07/21/17 Care time: The patient presented to the Emergency Department on the above date and was hospitalized for further evaluation of their emergent condition. - New Patient This patient is new to me today: No - Critical Care Critical Care patient: Yes Total Critical Care Time (in minutes): 42 Critical Care Statement: The care of this patient involved high complexity decision making to prevent further life threatening deterioration of the patient 's condition and/or to evaluate & treat vital organ system(s) failure or risk of failure.
--- NOTE | 2017-07-22 14:44 | EKG ---
Test Reason : Blood Pressure : / mmHG Vent. Rate : 090 BPM Atrial Rate : 090 BPM P-R Int : 152 ms QRS Dur : 100 ms QT Int : 374 ms P-R-T Axes : 076 057 065 degrees QTc Int : 457 ms NORMAL SINUS RHYTHM POSSIBLE LEFT ATRIAL ENLARGEMENT BORDERLINE ECG NO PREVIOUS ECGS AVAILABLE Confirmed by DEBORAH ALEXANDER, VIRA ([id number]) on 07/22/2017 2:43:55 PM Referred By: Confirmed By:VIRA CABRERA MD
[2017-07-22 15:16] LABS: BASOPHIL %. 1.1 % (0-2.0)
--- NOTE | 2017-07-22 16:19 | CONSULT ---
Consult Consult Specialty:: Endocrinology Referred by:: Dr Padilla Reason for Consultation:: Hyperglycemia - History of Present Illness Chief Complaint: AMS, fatigue History of Present Illness: This is a 62 year old female, with history of Asthma, T2DM for around 10 years , HTN who presents to the emergency department with increased lethargy for the past 3 days. Patient reports feeling generally weak and has not been eating normally. As per , patient has not been taking her Metformin regularly and has been complaining of dry mouth and increased thirst over the past few days. Today, patient had a episode of AMS with slurred speech. Patient has not been taking her medications due to insurance issues and presents to the ED for evaluation of her emergent condition. Pt has not been doing FS at home. Has polyuria, polydipsia, nocturia and increased thirst for the last few weeks. Has been drinking a lot of juice. Family h/o DM in grandmother and sister. No visual symptoms. No paresthesia of feet. Last oph exam about a year ago. No h/o hospitalization for hypo or hyperglycemia. Admission CO2 18 with AGAP of 20, treated IV hydration and Insulin. Today morning CO2 was 13 with AGap of 17. Insulin drip started with normalization of CO2 and A Gap. Pt currently off Insulin drip. - History Source History Provided By: Patient, Family Member, Medical Record - Past Medical History [employer]: No: CVA, Dementia Cardio/Vascular: Yes: HTN. No: AFIB, Aneurysm, Aortic Insufficiency, Aortic Stenosis, CAD, CHF, Deep Vein Thrombosis, Hyperlipdemia, LA, Mitral Insufficiency, Mitral Stenosis, Murmur, Pulmonary Hypertension, Other Pulmonary: Yes: Asthma. No: Bronchitis, Cancer, COPD, O2 Dependent, Pneumonia, Previously Intubated, Pulmonary Embolus, Pulmonary Fibrosis, Sleep Apnea, Other Gastrointestinal: No: GERD Hepatobiliary: No: Cirrhosis, Cholelithiasis, Cholecystitis, Choledocholithiasis , Hepatitis A, Hepatitis B, Hepatitis C, Other Renal/: No: Renal Inusuff Infectious Disease: No: AIDS, C-Diff, Herpes Zoster, HIV, MRSA, STD's, Tuberculosis, VREF, Other Psych: No: Addictions, Anxiety, Bipolar, Depression, Panic, Psychosis, Schizophrenia, Other Musculoskeletal: No: Bursitis, Chronic low back pain, Hemiparesis, Hemiplegia, Osteoarthritis, Paraplegia, Other Rheumatology: No: Fibromyalgia, Gout, Lupus, Rheumatoid Arthritis, Sarcoidosis, Vasculitis, Other Endocrine: Yes: Diabetes Mellitus. No: Steven's Disease, Tammy's Disease, Diabetes Insipidus, Hyperparathyroidism, Hyperthyroidism, Hypothyroidism, Osteopenia, SIADH, Other - Past Surgical History Past Surgical History: Yes: None. No: AAA Repair, AICD, Amputation, Appendectomy, Arthrosocopy, AV Fistula/Graft, Bariatric Surgery, Breast Biopsy, Bypass, CABG, Carotid Endarterectomy, Cataract Removal, Cholecystectomy, Colectomy, Colonoscopy, Colostomy, Craniotomy, , Cystectomy, Hernia Repair, Hysterectomy, Ileal Conduit, Ileosotomy, Joint Replacement, Kidney Transplant, Laminectomy, Liver Transplant, Mastectomy, Nephrectomy, Oopherectomy , Orchiectomy, Permanent Pacemaker, Prostatectomy, Splenectomy, Stent, Thoracotomy, TURP, Tonsillectomy, Tubal Ligation, Upper Endoscopy, Valve Replacement, Vasectomy, Vein Stripping/Ligation - Alcohol/Substance Use Hx Alcohol Use: No - Smoking History Smoking history: Never smoked Have you smoked in the past 12 months: No - Social History Usual Living Arrangement: With Spouse History of Recent Travel: No Home Medications - Allergies Allergies/Adverse Reactions: Allergies Allergy/AdvReac Type Severity Reaction Status Date / Time No Known Allergies Allergy Verified 07/21/17 15:58 - Home Medications Home Medications: Ambulatory Orders Irbesartan 300 mg PO DAILY 07/21/17 Metformin HCl [Metformin HCl ER] 1,000 mg PO BID 07/21/17 Family Disease History - Family Disease History Family Disease History: Diabetes: Grandparent, Sister Review of Systems - Review of Systems Constitutional: reports: Lethargy Eyes: reports: No Symptoms HENT: reports: No Symptoms Neck: reports: No Symptoms Cardiovascular: reports: No Symptoms Respiratory: reports: No Symptoms Gastrointestinal: reports: No Symptoms Genitourinary: reports: Other (polyuria, polydipsia, nocturia) Musculoskeletal: reports: No Symptoms Integumentary: reports: No Symptoms Neurological: reports: No Symptoms Physical Exam Vital Signs: Vital Signs Temperature 98.6 F 07/22/17 14:00 Pulse Rate 88 07/22/17 14:00 Respiratory Rate 17 07/22/17 14:00 Blood Pressure 84/52 07/22/17 14:00 O2 Sat by Pulse Oximetry (%) 95 07/22/17 10:01 Constitutional: Yes: No Distress, Calm Eyes: Yes: Conjunctiva Clear, EOM Intact HENT: Yes: Atraumatic, Normocephalic Neck: Yes: Supple, Trachea Midline Cardiovascular: Yes: Regular Rate and Rhythm Respiratory: Yes: Regular, CTA Bilaterally Gastrointestinal: Yes: Normal Bowel Sounds, Soft Musculoskeletal: Yes: WNL Extremities: Yes: WNL Edema: No Neurological: Yes: Alert, Oriented Labs: CBC, BMP 07/22/17 06:05 07/22/17 12:02 Problem List - Problems (1) Altered mental status Code(s): R41.82 - ALTERED MENTAL STATUS, UNSPECIFIED Qualifiers: Altered mental status type: delirium Qualified Code(s): R41.0 - Disorientation, unspecified (2) DKA (diabetic ketoacidoses) Code(s): E13.10 - OTH DIABETES MELLITUS WITH KETOACIDOSIS WITHOUT COMA (3) Hyponatremia Code(s): E87.1 - HYPO-OSMOLALITY AND HYPONATREMIA Assessment/Plan AP DKA DM Start Levemir 12 units stat and daily at BGM QACHS and at 3 a.m. Tolerating diet CMP at 8 p.m. Neutrophos 2 pkt BID Electrolyte replacement as necessary
[2017-07-22] MEDS ORDERED: INSULIN DETEMIR 100 UNITS/ML MDV SQ ONE (16:45)
[2017-07-22] MEDS: INSULIN SLIDING SCALE (NOVOLOG) 1 VIAL SQ SCH ×2 (17:03→21:56)
[2017-07-22 21:05] LABS: ALBUMIN 1.6 g/dl (3.4-5.0); ANION GAP 9 (8-16); CALCIUM 7.2 mg/dL (8.5-10.1); CO2 21 mmol/L (21-32); CREATININE 0.9 mg/dL (0.55-1.02); SGOT/AST 46 U/L (15-37); SGPT/ALT 21 U/L (12-78)
[2017-07-22 21:07] LABS: ALK PHOS 164 U/L (45-117); BILIRUBIN,TOTAL 0.5 mg/dL (0.2-1.0); TOT PROT 5.2 g/dl (6.4-8.2)
[2017-07-22 21:17] LABS: GLUCOSE,RANDOM 314 mg/dL (74-106)
[2017-07-22] MEDS: NAPH,MB-DB/K PH,MBDB POWDER PACKET PO SCH (21:57)
--- NOTE | 2017-07-22 22:17 | PN ---
Progress Note, Physician History of Present Illness: feeling better - Current Medication List Current Medications: Active Medications Acetaminophen (Tylenol -) 650 mg PO Q6H PRN PRN Reason: FEVER OR PAIN Last Admin: 07/22/17 11:59 Dose: 650 mg Levofloxacin (Levaquin 250 Mg Premixed Ivpb -) 250 mg in 50 mls @ 50 mls/hr IVPB DAILY [facility] Last Admin: 07/22/17 09:22 Dose: 50 mls/hr Vancomycin HCl 1,000 mg/ (Dextrose) 250 mls @ 166.667 mls/hr IVPB Q12H JESSICA PRN Reason: Protocol Dextrose/Sodium Chloride (D5-Ns -) 1,000 mls @ 100 mls/hr IV ASDIR [facility] Last Admin: 07/22/17 13:51 Dose: 100 mls/hr Insulin Aspart (Novolog Vial Sliding Scale -) 1 vial SQ ACHS JESSICA PRN Reason: Protocol Last Admin: 07/22/17 21:56 Dose: 8 units Insulin Detemir (Levemir Vial) 12 units SQ HS JESSICA Potassium Phos/Sodium Phos (Phos-Nak Packet -) 1 packet PO BID [facility] Last Admin: 07/22/17 21:57 Dose: 1 packet - Objective Vital Signs: Vital Signs Temperature 98.6 F 07/22/17 14:00 Pulse Rate 98 H 07/22/17 20:00 Respiratory Rate 22 07/22/17 20:00 Blood Pressure 102/58 07/22/17 20:00 O2 Sat by Pulse Oximetry (%) 100 07/22/17 20:20 Constitutional: Yes: No Distress HENT: Yes: Atraumatic Neck: Yes: Supple Cardiovascular: Yes: Regular Rate and Rhythm Respiratory: Yes: CTA Bilaterally Gastrointestinal: Yes: Normal Bowel Sounds Extremities: Yes: WNL Neurological: Yes: Alert, Oriented Labs: CBC, BMP 07/22/17 06:05 07/22/17 19:50 INR, PTT INR 1.14 (0.82-1.09) 07/21/17 16:19 Problem List - Problems (1) Altered mental status Assessment/Plan: alert and awake Code(s): R41.82 - ALTERED MENTAL STATUS, UNSPECIFIED Qualifiers: Altered mental status type: delirium Qualified Code(s): R41.0 - Disorientation, unspecified (2) Hyponatremia Assessment/Plan: resolved Code(s): E87.1 - HYPO-OSMOLALITY AND HYPONATREMIA (3) Non-ketotic hyperosmolar coma Code(s): E11.01 - TYPE 2 DIABETES MELLITUS WITH HYPEROSMOLARITY WITH COMA (4) Sepsis Assessment/Plan: cxs pending on abx Code(s): A41.9 - SEPSIS, UNSPECIFIED ORGANISM Qualifiers: Sepsis type: sepsis due to unspecified organism Qualified Code(s): A41.9 - Sepsis, unspecified organism (5) UTI (urinary tract infection) Code(s): N39.0 - URINARY TRACT INFECTION, SITE NOT SPECIFIED Qualifiers: Urinary tract infection type: site unspecified Hematuria presence: with hematuria Qualified Code(s): N39.0 - Urinary tract infection, site not specified; R31.9 - Hematuria, unspecified; R31.9 - Hematuria, unspecified Assessment/Plan cc time 30 min
[2017-07-23] MEDS: VANCOMYCIN 1,000 MG in DEXTROSE 5%-WATER - 250 ML IVPB SCH ×2 (01:00→13:28)
[2017-07-23] MEDS: INSULIN SLIDING SCALE (NOVOLOG) 1 VIAL SQ SCH ×4 (06:48→22:34)
[2017-07-23 06:49] LABS: MCHC 32.4 g/dl (32.0-36.0); MEAN CELL VOLUME 83.1 fl (80-96); MEAN PLT VOLUME 10.4 fl (7.5-11.1); PLATELET COUNT 223 K/MM3 (134-434); RDW 15.9 % (11.6-15.6); WHITE BLOOD COUNT 15.5 K/mm3 (4.0-10.0)
[2017-07-23 07:12] LABS: ALBUMIN 1.5 g/dl (3.4-5.0); ANION GAP 8 (8-16); CALCIUM 7.1 mg/dL (8.5-10.1); CO2 22 mmol/L (21-32); GLUCOSE,RANDOM 245 mg/dL (74-106); MAGNESIUM 2.6 mg/dL (1.8-2.4); SGPT/ALT 23 U/L (12-78)
[2017-07-23 07:20] LABS: ALK PHOS 193 U/L (45-117); BILIRUBIN,TOTAL 0.5 mg/dL (0.2-1.0); CREATININE 0.7 mg/dL (0.55-1.02); SGOT/AST 50 U/L (15-37); TOT PROT 4.9 g/dl (6.4-8.2)
[2017-07-23 07:45] LABS: PHOSPHOROUS 1.1 mg/dL (2.5-4.9)
[2017-07-23] MEDS: NAPH,MB-DB/K PH,MBDB POWDER PACKET PO SCH ×2 (09:52→22:36)
[2017-07-23] MEDS: LEVOFLOXACIN 250 MG IVPB 250 MG/50 ML MG IVPB SCH (09:52)
[2017-07-23] MEDS ORDERED: POTASSIUM PHOSPHATE 30 MM in SODIUM CHLORIDE 250 ML IVPB ONE (10:30)
[2017-07-23] MEDS ORDERED: CEFTRIAXONE 2 GM in DEXTROSE 5%-WATER - 100 ML IVPB SCH (12:00)
--- NOTE | 2017-07-23 12:23 | PN ---
Teaching Attending Note Name of Resident: Margi Sanchez ATTENDING PHYSICIAN STATEMENT I saw and evaluated the patient. I reviewed the resident's note and discussed the case with the resident. I agree with the resident's findings and plan as documented. SUBJECTIVE: Pt seen and examined in the ICU. Off insulin gtt. Tolerating PO. No nausea, vomiting or abdominal pain. No fevers recorded. OBJECTIVE: Last Vital Signs Temp Pulse Resp BP Pulse Ox 98.3 F 88 18 109/63 100 07/23/17 10:00 07/23/17 10:00 07/23/17 10:00 07/23/17 10:00 07/23/17 09:00 Intake & Output 07/20/17 07/21/17 07/22/17 07/23/17 23:59 23:59 23:59 23:59 Intake Total 3002 1550 Output Total 1000 Balance 2001 155 Weight 165 lb 167 lb 168 lb 3.2 oz Gen: NAD at rest Heart: RRR Lung: decreased breath sounds at the bases Abd: soft, nontender Ext: no edema CBC, BMP 07/23/17 06:20 07/23/17 06:20 Active Medications Acetaminophen (Tylenol -) 650 mg PO Q6H PRN PRN Reason: FEVER OR PAIN Last Admin: 07/22/17 23:03 Dose: 650 mg Vancomycin HCl 1,000 mg/ (Dextrose) 250 mls @ 166.667 mls/hr IVPB Q12H JESSICA PRN Reason: Protocol Last Admin: 07/23/17 01:00 Dose: 166.667 mls/hr Dextrose/Sodium Chloride (D5-Ns -) 1,000 mls @ 100 mls/hr IV ASDIR JESSICA Last Admin: 07/22/17 13:51 Dose: 100 mls/hr Potassium Phosphate 30 mm/ (Sodium Chloride) 260 mls @ 62.5 mls/hr IVPB ONCE ONE Stop: 07/23/17 14:39 Last Admin: 07/23/17 11:52 Dose: 62.5 mls/hr Ceftriaxone Sodium 2 gm/ (Dextrose) 100 mls @ 18.75 mls/hr IVPB DAILY JESSICA Insulin Aspart (Novolog Vial Sliding Scale -) 1 vial SQ ACHS JESSICA PRN Reason: Protocol Last Admin: 07/23/17 11:53 Dose: 4 units Insulin Detemir (Levemir Vial) 12 units SQ HS JESSICA Potassium Phos/Sodium Phos (Phos-Nak Packet -) 1 packet PO BID JESSICA Last Admin: 07/23/17 09:52 Dose: 1 packet ASSESSMENT AND PLAN: Diabetic Ketoacidosis resolved UTI Strep Bacteremia HTN DM Asthma - continue insulin - monitor fingersticks - replete lytes - PO as tolerated - continue antibiotics - f/u cultures - inhaled bronchodilators as needed - DVT prophylaxis - can monitor on floor
[2017-07-23 12:35] LABS: MYELOCYTE 2 % (0-2); TOTAL CELLS COUNTED 100
--- NOTE | 2017-07-23 13:14 | PN ---
Physical Exam: SUBJECTIVE: Patient seen and examined Patient resting in bed NAD. No acute events overnight. afebrile and hemodynamically stable. denies cp, h/a, and pain, spb, cough. dizziness. OBJECTIVE: Vital Signs Period Temp Pulse Resp BP Sys/Slade Pulse Ox Last 24 Hr 98.3 F-100.1 F 88-99 16-26 84-113/40-91 95-100 GENERAL: The patient is awake, alert, and fully oriented, in no acute distress. HEAD: Normal with no signs of trauma. EYES: PERRL, extraocular movements intact, sclera anicteric, conjunctiva clear. No ptosis. ENT: Ears normal, nares patent, oropharynx clear without exudates, moist mucous membranes. NECK: supple. LUNGS: Breath sounds equal, clear to auscultation bilaterally, no wheezes, no crackles, no accessory muscle use. HEART: Regular rate and rhythm, S1, S2 without murmur, rub or gallop. ABDOMEN: Soft, nontender, nondistended, normoactive bowel sounds, no guarding, no rebound EXTREMITIES: 2+ pulses, warm, well-perfused, no edema. NEUROLOGICAL: Cranial nerves II through XII grossly intact. Normal speech, gait not observed. PSYCH: Normal mood, normal affect. SKIN: Warm, dry Laboratory Results - last 24 hr 07/22/17 07/22/17 07/22/17 06:05 15:09 16:38 WBC RBC Hgb Hct MCV MCH MCHC RDW Plt Count MPV Total Counted Neutrophils % Neutrophils % (Manual) 75.8 Band Neutrophils % 2.1 Lymphocytes % Lymphocytes % (Manual) 3.2 L Monocytes % (Manual) 13 H Eosinophils % (Manual) 1.1 Basophils % (Manual) 1.1 D Myelocytes % (Man) 1 D Metamyelocytes 3 H D Hypochromia 0 Toxic Granulation 0 Dohle Bodies 0 Platelet Estimate Normal Polychromasia 0 Poikilocytosis 0 Basophilic Stippling 0 Anisocytosis 0 Microcytosis 0 Macrocytosis 0 Spherocytes 0 Sickle Cells 0 Target Cells 0 Tear Drop Cells 0 Ovalocytes 0 Stomatocytes 0 Helmet Cells 0 [place] Bodies 0 [place] Rings 0 Lamar Cells 0 Acanthocytes (Spur) 0 Fragmented RBCs 0 Schistocytes 0 Sodium Potassium Chloride Carbon Dioxide Anion Gap BUN Creatinine Creat Clearance w eGFR POC Glucometer [phone] Random Glucose Calcium Phosphorus Magnesium Total Bilirubin AST ALT Alkaline Phosphatase Total Protein Albumin 07/22/17 07/23/17 07/23/17 19:50 06:15 06:20 WBC 15.5 H RBC 2.77 L Hgb 7.5 L Hct 23.0 L MCV 83.1 MCH 27.0 MCHC 32.4 RDW 15.9 H Plt Count 223 MPV 10.4 Total Counted 100 Neutrophils % No Result Required. Neutrophils % (Manual) 75.0 Band Neutrophils % 5.0 Lymphocytes % No Result Required. Lymphocytes % (Manual) 10.0 D Monocytes % (Manual) 7 Eosinophils % (Manual) 1.0 Basophils % (Manual) Myelocytes % (Man) 2 D Metamyelocytes Hypochromia Toxic Granulation Dohle Bodies Platelet Estimate Polychromasia Poikilocytosis Basophilic Stippling Anisocytosis Microcytosis Macrocytosis Spherocytes Sickle Cells Target Cells Tear Drop Cells Ovalocytes Stomatocytes Helmet Cells [place] Bodies [place] Rings Lamar Cells Acanthocytes (Spur) Fragmented RBCs Schistocytes Sodium 135 L Potassium 4.3 Chloride 105 Carbon Dioxide 21 Anion Gap 9 BUN 22 H Creatinine 0.9 Creat Clearance w eGFR > 60 POC Glucometer [phone] Random Glucose 314 H* D Calcium 7.2 L Phosphorus Magnesium Total Bilirubin 0.5 AST 46 H D ALT 21 Alkaline Phosphatase 164 H D Total Protein 5.2 L Albumin 1.6 L 07/23/17 07/23/17 06:20 10:05 WBC RBC Hgb Hct MCV MCH MCHC RDW Plt Count MPV Total Counted Neutrophils % Neutrophils % (Manual) Band Neutrophils % Lymphocytes % Lymphocytes % (Manual) Monocytes % (Manual) Eosinophils % (Manual) Basophils % (Manual) Myelocytes % (Man) Metamyelocytes Hypochromia Toxic Granulation Dohle Bodies Platelet Estimate Polychromasia Poikilocytosis Basophilic Stippling Anisocytosis Microcytosis Macrocytosis Spherocytes Sickle Cells Target Cells Tear Drop Cells Ovalocytes Stomatocytes Helmet Cells [place] Bodies [place] Rings Lamar Cells Acanthocytes (Spur) Fragmented RBCs Schistocytes Sodium 137 Potassium 4.0 Chloride 107 Carbon Dioxide 22 Anion Gap 8 BUN 15 D Creatinine 0.7 D Creat Clearance w eGFR > 60 POC Glucometer [phone] Random Glucose 245 H D Calcium 7.1 L Phosphorus 1.1 L* Magnesium 2.6 H Total Bilirubin 0.5 AST 50 H ALT 23 Alkaline Phosphatase 193 H Total Protein 4.9 L Albumin 1.5 L Active Medications Generic Name Dose Route Start Last Admin Trade Name Anna PRN Reason Stop Dose Admin Acetaminophen 650 mg 07/21/17 22:31 07/22/17 23:03 Tylenol - PO 650 mg Q6H PRN Administration FEVER OR PAIN Vancomycin HCl 1,000 mg/ 250 mls @ 166.667 mls/hr 07/23/17 01:00 07/23/17 01: 00 Dextrose IVPB 166.667 mls/hr Q12H JESSICA Administration Protocol Dextrose/Sodium Chloride 1,000 mls @ 100 mls/hr 07/22/17 13:15 07/22/17 13:51 D5-Ns - IV 100 mls/hr ASDIR JESSICA Administration Potassium Phosphate 30 mm/ 260 mls @ 62.5 mls/hr 07/23/17 10:30 07/23/17 11: 52 Sodium Chloride IVPB 07/23/17 14:39 62.5 mls/hr ONCE ONE Administration Ceftriaxone Sodium 2 gm/ 100 mls @ 18.75 mls/hr 07/23/17 12:00 Dextrose IVPB DAILY JESSICA Insulin Aspart 1 vial 07/22/17 16:30 07/23/17 11:53 Novolog Vial Sliding Scale - SQ 4 units ACHS JESSICA Administration Protocol Insulin Detemir 12 units 07/23/17 22:00 Levemir Vial SQ HS JESSICA Potassium Phos/Sodium Phos 1 packet 07/22/17 22:00 07/23/17 09:52 Phos-Nak Packet - PO 1 packet BID JESSICA Administration ASSESSMENT/PLAN: This is a 62yo F with PMH of NIDDM, HTN, and asthma who presents in DKA vs HHS. Neuro: -A&Ox3,s table CV: *HTN -has been normotensive w/o meds Pulm: -stable Endocrine: *NIDDM *DKA -provoked by Infection and missing doses of metformin -hyperglycemia resolved, gap closed -Endocrinilogy consult appreciated, on Levemir 12 u HS, ISS, BGM ACHS -A1c p/d -D5NS @75 -can start diet ID: *sepsis *UTI *gram + bacteremia -rocephin 2 mg daily, vanco Hem/Onc: *anemia - Hgb 7.5 stable -f/u heme w/u FEN -D5NS@75 -lytes stable -diabetic na restricted diet Dispo: xfer m/s Problem List - Problems (1) Altered mental status Code(s): R41.82 - ALTERED MENTAL STATUS, UNSPECIFIED Qualifiers: Altered mental status type: delirium Qualified Code(s): R41.0 - Disorientation, unspecified (2) Diabetes Code(s): E11.9 - TYPE 2 DIABETES MELLITUS WITHOUT COMPLICATIONS (3) DKA (diabetic ketoacidoses) Code(s): E13.10 - OTH DIABETES MELLITUS WITH KETOACIDOSIS WITHOUT COMA (4) Hypertension Code(s): I10 - ESSENTIAL (PRIMARY) HYPERTENSION (5) Hyponatremia Code(s): E87.1 - HYPO-OSMOLALITY AND HYPONATREMIA (6) Non-ketotic hyperosmolar coma Code(s): E11.01 - TYPE 2 DIABETES MELLITUS WITH HYPEROSMOLARITY WITH COMA (7) Sepsis Code(s): A41.9 - SEPSIS, UNSPECIFIED ORGANISM Qualifiers: Sepsis type: sepsis due to unspecified organism Qualified Code(s): A41.9 - Sepsis, unspecified organism (8) UTI (urinary tract infection) Code(s): N39.0 - URINARY TRACT INFECTION, SITE NOT SPECIFIED Qualifiers: Urinary tract infection type: site unspecified Hematuria presence: with hematuria Qualified Code(s): N39.0 - Urinary tract infection, site not specified; R31.9 - Hematuria, unspecified; R31.9 - Hematuria, unspecified Visit type - Emergency Visit Emergency Visit: Yes ED Registration Date: 07/21/17 Care time: The patient presented to the Emergency Department on the above date and was hospitalized for further evaluation of their emergent condition. - New Patient This patient is new to me today: Yes Date on this admission: 07/23/17 - Critical Care Critical Care patient: Yes Total Critical Care Time (in minutes): 35 Critical Care Statement: The care of this patient involved high complexity decision making to prevent further life threatening deterioration of the patient 's condition and/or to evaluate & treat vital organ system(s) failure or risk of failure. - Discharge Referral Referred to [facility] Med [facility] No
--- NOTE | 2017-07-23 13:18 | CONSULT ---
Consult Consult Specialty:: Nephrology Reason for Consultation:: RUSSELL - History of Present Illness Chief Complaint: lethargy History of Present Illness: Pt is a 62 year old female with pmhx of DM, asthma, and HTN who initially presented to the ER for lethargy. She was found to be in DKA. Pt says that she was working hard and did not take her diabetic meds for about 3 or 4 days. She was fond to be in renal failure and I was called to evaluate her. Her renal function is improving. He denies history of kidney disease. She says that she is starting to feel better. She remains in the ICU. She denies fevers or chills. She denies chest pain or palpitations. - History Source History Provided By: Patient, Medical Record - Past Medical History Cardio/Vascular: Yes: HTN Pulmonary: Yes: Asthma Endocrine: Yes: Diabetes Mellitus - Past Surgical History Past Surgical History: Yes: None - Alcohol/Substance Use Hx Alcohol Use: No - Smoking History Smoking history: Never smoked Have you smoked in the past 12 months: No - Social History Usual Living Arrangement: With Spouse History of Recent Travel: No Home Medications - Allergies Allergies/Adverse Reactions: Allergies Allergy/AdvReac Type Severity Reaction Status Date / Time No Known Allergies Allergy Verified 07/21/17 15:58 - Home Medications Home Medications: Ambulatory Orders Irbesartan 300 mg PO DAILY 07/21/17 Metformin HCl [Metformin HCl ER] 1,000 mg PO BID 07/21/17 Family Disease History - Family Disease History Family Disease History: Diabetes: Grandparent, Sister Review of Systems - Review of Systems Constitutional: reports: Malaise. denies: Chills, Fever Eyes: reports: No Symptoms HENT: reports: No Symptoms Neck: reports: No Symptoms Cardiovascular: reports: No Symptoms Respiratory: reports: No Symptoms Gastrointestinal: reports: No Symptoms Genitourinary: reports: No Symptoms Musculoskeletal: reports: Muscle Weakness Integumentary: reports: No Symptoms Neurological: reports: No Symptoms Endocrine: reports: No Symptoms Hematology/Lymphatic: reports: No Symptoms Psychiatric: reports: No Symptoms Physical Exam Vital Signs: Vital Signs Temperature 98.3 F 07/23/17 10:00 Pulse Rate 99 H 07/23/17 12:00 Respiratory Rate 20 07/23/17 12:00 Blood Pressure 113/60 07/23/17 12:00 O2 Sat by Pulse Oximetry (%) 100 07/23/17 09:00 Constitutional: Yes: Calm Eyes: Yes: Conjunctiva Clear HENT: Yes: Atraumatic Neck: Yes: Supple Cardiovascular: Yes: S1, S2 Respiratory: Yes: CTA Bilaterally Gastrointestinal: Yes: Soft Renal/: Yes: WNL Musculoskeletal: Yes: WNL Edema: No Neurological: Yes: Oriented Psychiatric: Yes: Oriented Labs: CBC, BMP 07/23/17 06:20 07/23/17 06:20 Laboratory Tests 07/21/17 07/21/17 07/21/17 16:19 16:19 16:42 Hgb 8.7 L Sodium Creatinine 2.0 H Random Glucose Calcium Phosphorus Urine Protein 1+ H Urine Blood 3+ H 07/21/17 07/21/17 07/22/17 22:20 23:10 06:05 Hgb 8.4 L 7.9 L Sodium Creatinine 1.4 H D Random Glucose Calcium Phosphorus Urine Protein Urine Blood 07/22/17 07/22/17 07/22/17 06:05 12:02 19:50 Hgb Sodium 135 L Creatinine 1.1 H D 1.0 0.9 Random Glucose 314 H* D Calcium Phosphorus Urine Protein Urine Blood 07/23/17 06:20 Hgb Sodium Creatinine Random Glucose Calcium 7.1 L Phosphorus 1.1 L* Urine Protein Urine Blood Imaging - Results Chest X-ray: Report Reviewed Problem List - Problems (1) RUSSELL (acute kidney injury) Code(s): N17.9 - ACUTE KIDNEY FAILURE, UNSPECIFIED (2) Anemia Code(s): D64.9 - ANEMIA, UNSPECIFIED (3) Hypophosphatemia Code(s): E83.39 - OTHER DISORDERS OF PHOSPHORUS METABOLISM (4) Altered mental status Code(s): R41.82 - ALTERED MENTAL STATUS, UNSPECIFIED Qualifiers: Altered mental status type: delirium Qualified Code(s): R41.0 - Disorientation, unspecified (5) DKA (diabetic ketoacidoses) Code(s): E13.10 - OTH DIABETES MELLITUS WITH KETOACIDOSIS WITHOUT COMA (6) Diabetes Code(s): E11.9 - TYPE 2 DIABETES MELLITUS WITHOUT COMPLICATIONS (7) Hypertension Code(s): I10 - ESSENTIAL (PRIMARY) HYPERTENSION (8) Hyponatremia Code(s): E87.1 - HYPO-OSMOLALITY AND HYPONATREMIA (9) Sepsis Code(s): A41.9 - SEPSIS, UNSPECIFIED ORGANISM Qualifiers: Sepsis type: sepsis due to unspecified organism Qualified Code(s): A41.9 - Sepsis, unspecified organism (10) UTI (urinary tract infection) Code(s): N39.0 - URINARY TRACT INFECTION, SITE NOT SPECIFIED Qualifiers: Urinary tract infection type: site unspecified Hematuria presence: with hematuria Qualified Code(s): N39.0 - Urinary tract infection, site not specified; R31.9 - Hematuria, unspecified; R31.9 - Hematuria, unspecified Assessment/Plan Current Medications Generic Name Dose Route Start Last Admin Trade Name Freq PRN Reason Stop Dose Admin Acetaminophen 650 mg 07/21/17 22:31 07/22/17 23:03 Tylenol - PO 650 mg Q6H PRN Administration FEVER OR PAIN Ampicillin Sodium/Sulbactam 100 mls @ 200 mls/hr 07/23/17 16:00 Sodium 3 gm/ Sodium Chloride IVPB Q6H-IV JESSICA Insulin Aspart 1 vial 07/22/17 16:30 07/23/17 16:29 Novolog Vial Sliding Scale - SQ 8 units ACHS JESSICA Administration Protocol Insulin Detemir 12 units 07/23/17 22:00 Levemir Vial SQ HS JESSICA Potassium Phos/Sodium Phos 1 packet 07/22/17 22:00 07/23/17 09:52 Phos-Nak Packet - PO 1 packet BID JESSICA Administration Impression 1. RUSSELL resolving 2. DKA 3. UTI 4. anemia 5. HTN 6. asthma 7. hypophosphatemia Plan - renal function is stabilizing - repeat AU tomorrow - replace potassium - monitor lytes closely - RUSSELL likely from dehydration caused from DKA - will need anemia workup - will follow Dr Navarro
[2017-07-23] MEDS ORDERED: PT OWN MED DRAWER 7, Y5N ONE ×2 (13:26→22:29)
--- NOTE | 2017-07-23 14:06 | EKG ---
Test Reason : Blood Pressure : / mmHG Vent. Rate : 093 BPM Atrial Rate : 093 BPM P-R Int : 144 ms QRS Dur : 086 ms QT Int : 352 ms P-R-T Axes : 072 060 051 degrees QTc Int : 437 ms NORMAL SINUS RHYTHM NORMAL ECG WHEN COMPARED WITH ECG OF 21-JUL-2017 16:29, NONSPECIFIC T WAVE ABNORMALITY NOW EVIDENT IN INFERIOR LEADS NONSPECIFIC T WAVE ABNORMALITY NOW EVIDENT IN LATERAL LEADS Confirmed by VIRA CABRERA MD ([id number]) on 07/23/2017 2:06:06 PM Referred By: JESS DA SILVA DR Confirmed By:VIRA CABRERA MD
[2017-07-23] MEDS ORDERED: DEXTROSE 5%-NORMAL SALINE 1,000 ML IV SCH (15:44)
--- NOTE | 2017-07-23 15:58 | PN ---
Progress Note, Physician History of Present Illness: Pt states she feels much better. Afebrile now but wbc remains elevated. Denies any new complaints. - Current Medication List Current Medications: Active Medications Acetaminophen (Tylenol -) 650 mg PO Q6H PRN PRN Reason: FEVER OR PAIN Last Admin: 07/22/17 23:03 Dose: 650 mg Dextrose/Sodium Chloride (D5-Ns -) 1,000 mls @ 75 mls/hr IV ASDIR JESSICA Ampicillin Sodium/Sulbactam (Sodium 3 gm/ Sodium Chloride) 100 mls @ 200 mls/ hr IVPB Q6H-IV JESSICA Insulin Aspart (Novolog Vial Sliding Scale -) 1 vial SQ ACHS JESSICA PRN Reason: Protocol Last Admin: 07/23/17 11:53 Dose: 4 units Insulin Detemir (Levemir Vial) 12 units SQ HS JESSICA Potassium Phos/Sodium Phos (Phos-Nak Packet -) 1 packet PO BID JESSICA Last Admin: 07/23/17 09:52 Dose: 1 packet - Objective Vital Signs: Vital Signs Temperature 98.3 F 07/23/17 10:00 Pulse Rate 99 H 07/23/17 12:00 Respiratory Rate 20 07/23/17 12:00 Blood Pressure 113/60 07/23/17 12:00 O2 Sat by Pulse Oximetry (%) 100 07/23/17 09:00 Constitutional: Yes: No Distress, Calm Cardiovascular: Yes: Tachycardia Respiratory: Yes: CTA Bilaterally Gastrointestinal: Yes: Normal Bowel Sounds, Soft Neurological: Yes: Alert, Oriented Labs: CBC, BMP 07/23/17 06:20 07/23/17 06:20 INR, PTT INR 1.14 (0.82-1.09) 07/21/17 16:19 Microbiology 07/21/17 16:42 Urine - Urine Clean Catch Urine Culture - Preliminary Lactose Fermenting Neg Bacilli Strep Agalactiae Group B 07/21/17 17:24 Blood - Peripheral Venous Blood Culture - Preliminary Strep Agalactiae Group B 07/21/17 19:30 Blood - Peripheral Venous Blood Culture - Preliminary Pending Organism Problem List - Problems (1) DKA (diabetic ketoacidoses) Code(s): E13.10 - OTH DIABETES MELLITUS WITH KETOACIDOSIS WITHOUT COMA (2) Diabetes Code(s): E11.9 - TYPE 2 DIABETES MELLITUS WITHOUT COMPLICATIONS (3) Sepsis Code(s): A41.9 - SEPSIS, UNSPECIFIED ORGANISM Qualifiers: Sepsis type: sepsis due to unspecified organism Qualified Code(s): A41.9 - Sepsis, unspecified organism (4) UTI (urinary tract infection) Code(s): N39.0 - URINARY TRACT INFECTION, SITE NOT SPECIFIED Qualifiers: Urinary tract infection type: site unspecified Hematuria presence: with hematuria Qualified Code(s): N39.0 - Urinary tract infection, site not specified; R31.9 - Hematuria, unspecified; R31.9 - Hematuria, unspecified Assessment/Plan 62 y.o. female with history of DM (hadn't taken metformin for a few days) , HTN , Asthma presenting with lethargy, chills noted to have hyperglycemia, hypotension, tachycardia, RUSSELL, mild temp elevation and leukocytosis DKA RUSSELL - improved GBS UTI/Bacteremia - wbc remains elevated, repeat tomorrow - d/c Levaquin/Vancomycin - start Unasyn 3 G IV Q6 - f/u repeat blood culture results - repeat cbc tomorrow rest of care per ICU, case discussed cc time: 35 min
--- NOTE | 2017-07-23 18:49 | PN ---
Progress Note, Physician History of Present Illness: feeling better - Current Medication List Current Medications: Active Medications Acetaminophen (Tylenol -) 650 mg PO Q6H PRN PRN Reason: FEVER OR PAIN Last Admin: 07/22/17 23:03 Dose: 650 mg Ampicillin Sodium/Sulbactam (Sodium 3 gm/ Sodium Chloride) 100 mls @ 200 mls/ hr IVPB Q6H-IV JESSICA Insulin Aspart (Novolog Vial Sliding Scale -) 1 vial SQ ACHS JESSICA PRN Reason: Protocol Last Admin: 07/23/17 16:29 Dose: 8 units Insulin Detemir (Levemir Vial) 12 units SQ HS JESSICA Potassium Phos/Sodium Phos (Phos-Nak Packet -) 1 packet PO BID JESSICA Last Admin: 07/23/17 09:52 Dose: 1 packet - Objective Vital Signs: Vital Signs Temperature 98.6 F 07/23/17 16:00 Pulse Rate 74 07/23/17 18:00 Respiratory Rate 20 07/23/17 18:00 Blood Pressure 104/64 07/23/17 18:00 O2 Sat by Pulse Oximetry (%) 98 07/23/17 15:51 Constitutional: Yes: No Distress HENT: Yes: Atraumatic Neck: Yes: Supple Cardiovascular: Yes: Regular Rate and Rhythm Respiratory: Yes: Rhonchi Gastrointestinal: Yes: Normal Bowel Sounds Extremities: Yes: WNL Neurological: Yes: Alert, Oriented Labs: CBC, BMP 07/23/17 06:20 07/23/17 06:20 INR, PTT INR 1.14 (0.82-1.09) 07/21/17 16:19 Problem List - Problems (1) Altered mental status Assessment/Plan: alert and awake Code(s): R41.82 - ALTERED MENTAL STATUS, UNSPECIFIED Qualifiers: Altered mental status type: delirium Qualified Code(s): R41.0 - Disorientation, unspecified (2) Hyponatremia Assessment/Plan: resolved Code(s): E87.1 - HYPO-OSMOLALITY AND HYPONATREMIA (3) Non-ketotic hyperosmolar coma Assessment/Plan: on meds for diabetes endocrine consult resolved Code(s): E11.01 - TYPE 2 DIABETES MELLITUS WITH HYPEROSMOLARITY WITH COMA (4) Sepsis Assessment/Plan: cxs pending on abx Code(s): A41.9 - SEPSIS, UNSPECIFIED ORGANISM Qualifiers: Sepsis type: sepsis due to unspecified organism Qualified Code(s): A41.9 - Sepsis, unspecified organism (5) UTI (urinary tract infection) Assessment/Plan: gram negative ... on abx Code(s): N39.0 - URINARY TRACT INFECTION, SITE NOT SPECIFIED Qualifiers: Urinary tract infection type: site unspecified Hematuria presence: with hematuria Qualified Code(s): N39.0 - Urinary tract infection, site not specified; R31.9 - Hematuria, unspecified; R31.9 - Hematuria, unspecified Assessment/Plan cc time 30 min
[2017-07-23] MEDS: AMPICILLIN NA/SULBACTAM NA 3 GM in SODIUM CHLORIDE 100 ML IVPB SCH ×2 (21:00→22:38)
[2017-07-23] MEDS ORDERED: INSULIN DETEMIR 100 UNITS/ML MDV SQ SCH ×2 (22:00)
[2017-07-23] MEDS: DEXTROSE 5%-NORMAL SALINE 1,000 ML IV SCH (22:37)
[2017-07-24] MEDS: AMPICILLIN NA/SULBACTAM NA 3 GM in SODIUM CHLORIDE 100 ML IVPB SCH ×4 (02:45→21:09)
[2017-07-24] MEDS: INSULIN SLIDING SCALE (NOVOLOG) 1 VIAL SQ SCH ×4 (06:42→21:17)
[2017-07-24 07:03] LABS: MCH 26.2 pg (25.7-33.7); MCHC 31.8 g/dl (32.0-36.0); MEAN CELL VOLUME 82.3 fl (80-96); MEAN PLT VOLUME 10.1 fl (7.5-11.1); PLATELET COUNT 214 K/MM3 (134-434); WHITE BLOOD COUNT 17.5 K/mm3 (4.0-10.0)
[2017-07-24 07:31] LABS: ANION GAP 11 (8-16); CALCIUM 7.1 mg/dL (8.5-10.1); CO2 21 mmol/L (21-32); CREATININE 0.5 mg/dL (0.55-1.02); GLUCOSE,RANDOM 176 mg/dL (74-106); MAGNESIUM 2.2 mg/dL (1.8-2.4); PHOSPHOROUS 1.6 mg/dL (2.5-4.9)
[2017-07-24] MEDS ORDERED: PT OWN MED DRAWER 7, Y5N ONE ×2 (09:25→19:32)
[2017-07-24] MEDS: NAPH,MB-DB/K PH,MBDB POWDER PACKET PO SCH ×2 (09:26→21:09)
--- NOTE | 2017-07-24 12:15 | PN ---
Teaching Attending Note Name of Resident: Tristan Hoang ATTENDING PHYSICIAN STATEMENT I saw and evaluated the patient. I reviewed the resident's note and discussed the case with the resident. I agree with the resident's findings and plan as documented. SUBJECTIVE: Patient seen and examined in the ICU. Awake and alert. No CP or SOB. Reports chronic hematuria and noted to have significant anemia today. Intake & Output 07/21/17 07/22/17 07/23/17 07/24/17 23:59 23:59 23:59 23:59 Intake Total 3002 3210 350 Output Total 1000 400 Balance 2001 2810 350 Weight 165 lb 167 lb 168 lb 3.2 oz 167 lb 9.6 oz Last Vital Signs Temp Pulse Resp BP Pulse Ox 98.2 F 100 H 18 115/56 98 07/24/17 06:00 07/24/17 06:00 07/24/17 06:00 07/24/17 06:00 07/23/17 20:00 Active Medications Acetaminophen (Tylenol -) 650 mg PO Q6H PRN PRN Reason: FEVER OR PAIN Ampicillin Sodium/Sulbactam (Sodium 3 gm/ Sodium Chloride) 100 mls @ 200 mls/ hr IVPB Q6H-IV JESSICA Last Admin: 07/24/17 09:25 Dose: 200 mls/hr Insulin Aspart (Novolog Vial Sliding Scale -) 1 vial SQ ACHS JESSICA PRN Reason: Protocol Last Admin: 07/24/17 06:42 Dose: 2 units Insulin Detemir (Levemir Vial) 12 units SQ HS [facility] Last Admin: 07/23/17 22:36 Dose: 12 units Potassium Phos/Sodium Phos (Phos-Nak Packet -) 1 packet PO BID JESSICA Last Admin: 07/24/17 09:26 Dose: 1 packet Constitutional: Yes: NAD Eyes: WNL, Conjunctiva Clear, EOM Intact HENT: Yes: WNL, Atraumatic, Normocephalic Neck: Yes: WNL, Supple, Trachea Midline Cardiovascular: Yes: WNL, Regular Rate and Rhythm Respiratory: Yes: CTA Bilaterally Gastrointestinal: Yes: WNL, Normal Bowel Sounds, Soft ...Rectal Exam: Yes: Deferred Renal/: Yes: WNL Breast(s): Yes: WNL Musculoskeletal: Yes: WNL Extremities: Yes: WNL Edema: No Peripheral Pulses WNL: Yes Neurological: Yes: WNL, Alert, Oriented ...Motor Strength: WNL Psychiatric: Yes: WNL, Alert, Oriented Labs: Laboratory Results - last 24 hr 07/21/17 07/23/17 07/23/17 16:19 06:20 16:21 WBC RBC Hgb Hct MCV MCH MCHC RDW Plt Count MPV Total Counted 100 Neutrophils % (Manual) 75.0 Band Neutrophils % 5.0 Lymphocytes % (Manual) 10.0 D Monocytes % (Manual) 7 Eosinophils % (Manual) 1.0 Myelocytes % (Man) 2 D Sodium Potassium Chloride Carbon Dioxide Anion Gap BUN Creatinine POC Glucometer 306.91958 Random Glucose Calcium Phosphorus Magnesium Blood Type A POSITIVE Antibody Screen Negative Crossmatch See Detail 07/23/17 07/24/17 07/24/17 22:33 05:50 05:50 WBC 17.5 H RBC 2.58 L Hgb 6.8 L* Hct 21.2 L MCV 82.3 MCH 26.2 MCHC 31.8 L RDW 16.0 H Plt Count 214 MPV 10.1 Total Counted Neutrophils % (Manual) Band Neutrophils % Lymphocytes % (Manual) Monocytes % (Manual) Eosinophils % (Manual) Myelocytes % (Man) Sodium 139 Potassium 4.0 Chloride 107 Carbon Dioxide 21 Anion Gap 11 BUN 7 D Creatinine 0.5 L D POC Glucometer [phone] Random Glucose 176 H D Calcium 7.1 L Phosphorus 1.6 L D Magnesium 2.2 Blood Type Antibody Screen Crossmatch 07/24/17 08:25 WBC RBC Hgb Hct MCV MCH MCHC RDW Plt Count MPV Total Counted Neutrophils % (Manual) Band Neutrophils % Lymphocytes % (Manual) Monocytes % (Manual) Eosinophils % (Manual) Myelocytes % (Man) Sodium Potassium Chloride Carbon Dioxide Anion Gap BUN Creatinine POC Glucometer Random Glucose Calcium Phosphorus Magnesium Blood Type A POSITIVE Antibody Screen Negative Crossmatch Problem List - Problems (1) UTI (urinary tract infection) Code(s): N39.0 - URINARY TRACT INFECTION, SITE NOT SPECIFIED Qualifiers: Urinary tract infection type: site unspecified Hematuria presence: with hematuria Qualified Code(s): N39.0 - Urinary tract infection, site not specified; R31.9 - Hematuria, unspecified; R31.9 - Hematuria, unspecified (2) Diabetes Code(s): E11.9 - TYPE 2 DIABETES MELLITUS WITHOUT COMPLICATIONS (3) DKA (diabetic ketoacidoses) Code(s): E13.10 - OTH DIABETES MELLITUS WITH KETOACIDOSIS WITHOUT COMA (4) Hypertension Code(s): I10 - ESSENTIAL (PRIMARY) HYPERTENSION Assessment/Plan DKA / HHS UTI Bacteremia HTN DM Chronic hematuria Anemia PLAN: -Glycemic control -IVF -Bladder US -Urine cytology (needs further workup as patient reports chronic hematuria of unknown etiology) -PO as tolerated -VTE prophylaxis -ABX per ID Dr Marrero Critical care time spent in reviewing chart, evaluating patient and formulating plan - 40 minutes.
[2017-07-24 12:55] LABS: FERRITIN 414.588 ng/ml (6.9-282.5)
--- NOTE | 2017-07-24 13:03 | PN ---
Physical Exam: SUBJECTIVE: The patient is a 62F with a PMH of DM, HTN, and asthma who presented to the ED with increased lethargy, poor PO intake x 3 days, and not taking her metformin x 3-4 days. She was found to have a UA indicating a UTI, dehydration, increased anion gap, and ketones in her urine. The patient's AG is normal and BG is controlled. She has no overnight events and no acute complaints. OBJECTIVE: Vital Signs Period Temp Pulse Resp BP Sys/Slade Pulse Ox Last 24 Hr 98.2 F-98.9 F 74-108 18-20 104-134/49-80 98-98 GENERAL: The patient is awake, alert, and fully oriented, in no acute distress. HEAD: Normal with no signs of trauma. EYES: PERRL, extraocular movements intact, sclera anicteric, conjunctiva clear. No ptosis. NECK: Trachea midline, full range of motion, supple. LUNGS: Breath sounds equal, clear to auscultation bilaterally, no wheezes, no crackles, no accessory muscle use. HEART: Regular rate and rhythm, S1, S2 without murmur, rub or gallop. ABDOMEN: Soft, nontender, nondistended, normoactive bowel sounds, no guarding, no rebound, no hepatosplenomegaly, no masses. EXTREMITIES: 2+ pulses, warm, well-perfused, no edema. NEUROLOGICAL: Cranial nerves II through XII grossly intact. Normal speech, gait not observed. PSYCH: Normal mood, normal affect. SKIN: Warm, dry, normal turgor, no rashes or lesions noted Laboratory Results - last 24 hr 07/21/17 07/23/17 07/23/17 16:19 16:21 22:33 WBC RBC Hgb Hct MCV MCH MCHC RDW Plt Count MPV Sodium Potassium Chloride Carbon Dioxide Anion Gap BUN Creatinine POC Glucometer [phone] Random Glucose Calcium Phosphorus Magnesium Ferritin Blood Type A POSITIVE Antibody Screen Negative Crossmatch See Detail 07/24/17 07/24/17 07/24/17 05:50 05:50 06:12 WBC 17.5 H RBC 2.58 L Hgb 6.8 L* Hct 21.2 L MCV 82.3 MCH 26.2 MCHC 31.8 L RDW 16.0 H Plt Count 214 MPV 10.1 Sodium 139 Potassium 4.0 Chloride 107 Carbon Dioxide 21 Anion Gap 11 BUN 7 D Creatinine 0.5 L D POC Glucometer 193.18971 Random Glucose 176 H D Calcium 7.1 L Phosphorus 1.6 L D Magnesium 2.2 Ferritin 414.588 H Blood Type Antibody Screen Crossmatch 07/24/17 08:25 WBC RBC Hgb Hct MCV MCH MCHC RDW Plt Count MPV Sodium Potassium Chloride Carbon Dioxide Anion Gap BUN Creatinine POC Glucometer Random Glucose Calcium Phosphorus Magnesium Ferritin Blood Type A POSITIVE Antibody Screen Negative Crossmatch Active Medications Generic Name Dose Route Start Last Admin Trade Name Freq PRN Reason Stop Dose Admin Acetaminophen 650 mg 07/23/17 19:54 Tylenol - PO Q6H PRN FEVER OR PAIN Ampicillin Sodium/Sulbactam 100 mls @ 200 mls/hr 07/23/17 16:00 07/24/17 09: 25 Sodium 3 gm/ Sodium Chloride IVPB 200 mls/hr Q6H-IV JESSICA Administration Insulin Aspart 1 vial 07/23/17 22:00 07/24/17 12:24 Novolog Vial Sliding Scale - SQ 6 units ACHS JESSICA Administration Protocol Insulin Detemir 12 units 07/23/17 22:00 07/23/17 22:36 Levemir Vial SQ 12 units HS JESSICA Administration Potassium Phos/Sodium Phos 1 packet 07/23/17 22:00 07/24/17 09:26 Phos-Nak Packet - PO 1 packet BID JESSICA Administration ASSESSMENT/PLAN: This is a 62yo F with PMH of NIDDM, HTN, and asthma who presents in DKA vs HHS. Neuro: -A&Ox3,s table CV: *HTN -has been normotensive w/o meds Pulm: -stable Endocrine: *NIDDM *DKA -provoked by Infection and missing doses of metformin -hyperglycemia resolved, gap closed -Endocrinilogy consult appreciated, on Levemir 12 u HS, ISS, BGM ACHS -A1c p/d -D5NS @75 -can start diet ID: *sepsis *UTI *gram + bacteremia -rocephin 2 mg daily, vanco Hem/Onc: *anemia - Hgb 7.5 stable -f/u heme w/u FEN -D5NS@75 -lytes stable -diabetic na restricted diet Dispo: xfer m/s Visit type - Emergency Visit Emergency Visit: Yes ED Registration Date: 07/21/17 Care time: The patient presented to the Emergency Department on the above date and was hospitalized for further evaluation of their emergent condition. - New Patient This patient is new to me today: No - Critical Care Critical Care patient: Yes Total Critical Care Time (in minutes): 38 Critical Care Statement: The care of this patient involved high complexity decision making to prevent further life threatening deterioration of the patient 's condition and/or to evaluate & treat vital organ system(s) failure or risk of failure.
--- NOTE | 2017-07-24 15:35 | PN ---
Progress Note (short form) - Note Progress Note: Feels better Denies any complaints Blood sugar fluctuating Vital Signs Period Temp Pulse Resp BP Sys/Slade Pulse Ox Last 24 Hr 98.2 F-99 F 74-108 18-20 104-135/49-74 98-99 PE: AOx3 Neck: Supple, No JVD HEENT: PERRL, EOMi Lungs: CTA CVS: S1S2 Abd: Benign EXt: No edema Neuro: No focal deficit CBC,CMP WBC 17.5 K/mm3 (4.0-10.0) H 07/24/17 05:50 RBC 2.58 M/mm3 (3.60-5.2) L 07/24/17 05:50 Hgb 6.8 GM/dL (10.7-15.3) L* 07/24/17 05:50 Hct 21.2 % (32.4-45.2) L 07/24/17 05:50 MCV 82.3 fl (80-96) 07/24/17 05:50 MCH 26.2 pg (25.7-33.7) 07/24/17 05:50 MCHC 31.8 g/dl (32.0-36.0) L 07/24/17 05:50 RDW 16.0 % (11.6-15.6) H 07/24/17 05:50 Plt Count 214 K/MM3 (134-434) 07/24/17 05:50 MPV 10.1 fl (7.5-11.1) 07/24/17 05:50 Total Counted 100 07/23/17 06:20 Neutrophils % No Result Required. 07/23/17 06:20 Neutrophils % (Manual) 75.0 % (42.8-82.8) 07/23/17 06:20 Band Neutrophils % 5.0 % 07/23/17 06:20 Lymphocytes % No Result Required. 07/23/17 06:20 Lymphocytes % (Manual) 10.0 % (8-40) D 07/23/17 06:20 Monocytes % (Manual) 7 % (3.8-10.2) 07/23/17 06:20 Eosinophils % (Manual) 1.0 % (0-4.5) 07/23/17 06:20 Basophils % (Manual) 1.1 % (0-2.0) D 07/22/17 06:05 Myelocytes % (Man) 2 % (0-2) D 07/23/17 06:20 Metamyelocytes 3 % (0-2) H D 07/22/17 06:05 Hypochromia 0 07/22/17 06:05 Toxic Granulation 0 07/22/17 06:05 Dohle Bodies 0 07/22/17 06:05 Platelet Estimate Normal 07/22/17 06:05 Platelet Comment Present 07/21/17 16:19 Polychromasia 0 07/22/17 06:05 Poikilocytosis 0 07/22/17 06:05 Basophilic Stippling 0 07/22/17 06:05 Anisocytosis 0 07/22/17 06:05 Microcytosis 0 07/22/17 06:05 Macrocytosis 0 07/22/17 06:05 Spherocytes 0 07/22/17 06:05 Sickle Cells 0 07/22/17 06:05 Target Cells 0 07/22/17 06:05 Tear Drop Cells 0 07/22/17 06:05 Ovalocytes 0 07/22/17 06:05 Stomatocytes 0 07/22/17 06:05 Helmet Cells 0 07/22/17 06:05 [place] Bodies 0 07/22/17 06:05 [place] Rings 0 07/22/17 06:05 Jessica Cells 0 07/22/17 06:05 Acanthocytes (Spur) 0 07/22/17 06:05 Fragmented RBCs 0 07/22/17 06:05 Schistocytes 0 07/22/17 06:05 Sodium 139 mmol/L (136-145) 07/24/17 05:50 Potassium 4.0 mmol/L (3.5-5.1) 07/24/17 05:50 Chloride 107 mmol/L (98-107) 07/24/17 05:50 Carbon Dioxide 21 mmol/L (21-32) 07/24/17 05:50 Anion Gap 11 (8-16) 07/24/17 05:50 BUN 7 mg/dL (7-18) D 07/24/17 05:50 Creatinine 0.5 mg/dL (0.55-1.02) L D 07/24/17 05:50 Creat Clearance w eGFR > 60 (>60) 07/23/17 06:20 POC Glucometer 193.13432 UNITS (80-120) 07/24/17 06:12 Random Glucose 176 mg/dL (74-106) H D 07/24/17 05:50 Lactic Acid 1.2 mmol/L (0.4-2.0) 07/21/17 23:10 Calcium 7.1 mg/dL (8.5-10.1) L 07/24/17 05:50 Phosphorus 1.6 mg/dL (2.5-4.9) L D 07/24/17 05:50 Magnesium 2.2 mg/dL (1.8-2.4) 07/24/17 05:50 Ferritin 414.588 ng/ml (6.9-282.5) H 07/24/17 05:50 Total Bilirubin 0.5 mg/dL (0.2-1.0) 07/23/17 06:20 AST 50 U/L (15-37) H 07/23/17 06:20 ALT 23 U/L (12-78) 07/23/17 06:20 Alkaline Phosphatase 193 U/L (45-117) H 07/23/17 06:20 Creatine Kinase 1060 IU/L (26-192) H 07/21/17 16:19 Creatine Kinase Index 0.2 % (0.0-5.0) 07/21/17 16:19 CK-MB (CK-2) 2.922 ng/mL (0.5-3.6) 07/21/17 16:19 Troponin I < 0.02 ng/ml (0.00-0.05) 07/21/17 16:19 Total Protein 4.9 g/dl (6.4-8.2) L 07/23/17 06:20 Albumin 1.5 g/dl (3.4-5.0) L 07/23/17 06:20 Current Medications Generic Name Dose Route Start Last Admin Trade Name Freq PRN Reason Stop Dose Admin Acetaminophen 650 mg 07/23/17 19:54 Tylenol - PO Q6H PRN FEVER OR PAIN Ampicillin Sodium/Sulbactam 100 mls @ 200 mls/hr 07/23/17 16:00 07/24/17 15: 24 Sodium 3 gm/ Sodium Chloride IVPB 200 mls/hr Q6H-IV JESSICA Administration Influenza Virus Vaccine Quadrival 60 mcg 07/24/17 16:00 Flulaval Quad [id number] IM 07/24/17 16:01 .ONCE ONE Insulin Aspart 1 vial 07/23/17 22:00 07/24/17 12:24 Novolog Vial Sliding Scale - SQ 6 units ACHS JESSICA Administration Protocol Insulin Detemir 12 units 07/23/17 22:00 07/23/17 22:36 Levemir Vial SQ 12 units HS JESSICA Administration Potassium Phos/Sodium Phos 1 packet 07/23/17 22:00 07/24/17 09:26 Phos-Nak Packet - PO 1 packet BID JESSICA Administration AP: DKA DM Bacterimia Anemia: s/p blood transfusion Increase Levemir 15 units daily at HS Increase Novolog coverage BGM QACHS IV Abx Neutrophos 2 pkt BID Electrolyte replacement as necessary Problem List - Problems (1) Altered mental status Code(s): R41.82 - ALTERED MENTAL STATUS, UNSPECIFIED Qualifiers: Altered mental status type: delirium Qualified Code(s): R41.0 - Disorientation, unspecified (2) DKA (diabetic ketoacidoses) Code(s): E13.10 - OTH DIABETES MELLITUS WITH KETOACIDOSIS WITHOUT COMA (3) Hyponatremia Code(s): E87.1 - HYPO-OSMOLALITY AND HYPONATREMIA
[2017-07-24] MEDS ORDERED: FLU VACCINE QUAD 60 MCG/0.5 ML (MDV 17-18) IM ONE (16:00)
--- NOTE | 2017-07-24 16:56 | PN ---
Progress Note, Physician History of Present Illness: Pt states she feels much better. Has no complaints. Denies chills, shortness of breath, cough, dysuria, abd pain/n/v/d, rash. Is anemic today and wbc with upward trend. - Current Medication List Current Medications: Active Medications Acetaminophen (Tylenol -) 650 mg PO Q6H PRN PRN Reason: FEVER OR PAIN Ampicillin Sodium/Sulbactam (Sodium 3 gm/ Sodium Chloride) 100 mls @ 200 mls/ hr IVPB Q6H-IV JESSICA Last Admin: 07/24/17 15:24 Dose: 200 mls/hr Insulin Aspart (Novolog Vial Sliding Scale -) 1 vial SQ TIDAC JESSICA PRN Reason: Protocol Insulin Aspart (Novolog Vial Sliding Scale -) 1 vial SQ HS JESSICA PRN Reason: Protocol Insulin Detemir (Levemir Vial) 15 units SQ HS JESSICA Potassium Phos/Sodium Phos (Phos-Nak Packet -) 1 packet PO BID JESSICA Last Admin: 07/24/17 09:26 Dose: 1 packet - Objective Vital Signs: Vital Signs Temperature 98 F 07/24/17 16:00 Pulse Rate 98 H 07/24/17 16:00 Respiratory Rate 20 07/24/17 12:00 Blood Pressure 130/67 07/24/17 16:00 O2 Sat by Pulse Oximetry (%) 99 07/24/17 09:00 Constitutional: Yes: No Distress, Calm Cardiovascular: Yes: Regular Rate and Rhythm Respiratory: Yes: CTA Bilaterally Gastrointestinal: Yes: Normal Bowel Sounds, Soft Genitourinary: Yes: WNL Extremities: Yes: WNL Integumentary: Yes: WNL Labs: CBC, BMP 07/24/17 05:50 07/24/17 05:50 INR, PTT INR 1.14 (0.82-1.09) 07/21/17 16:19 Microbiology 07/23/17 12:38 Blood - Peripheral Venous Blood Culture - Preliminary NO GROWTH OBTAINED AFTER 24 HOURS, INCUBATION TO CONTINUE FOR 4 DAYS. 07/23/17 12:38 Blood - Peripheral Venous Blood Culture - Preliminary NO GROWTH OBTAINED AFTER 24 HOURS, INCUBATION TO CONTINUE FOR 4 DAYS. 07/21/17 17:24 Blood - Peripheral Venous Blood Culture - Final Strep Agalactiae Group B 07/21/17 16:42 Urine - Urine Clean Catch Urine Culture - Final Escherichia Coli Strep Agalactiae Group B 07/21/17 19:30 Blood - Peripheral Venous Blood Culture - Preliminary Pending Organism Problem List - Problems (1) DKA (diabetic ketoacidoses) Code(s): E13.10 - OTH DIABETES MELLITUS WITH KETOACIDOSIS WITHOUT COMA (2) Diabetes Code(s): E11.9 - TYPE 2 DIABETES MELLITUS WITHOUT COMPLICATIONS (3) Sepsis Code(s): A41.9 - SEPSIS, UNSPECIFIED ORGANISM Qualifiers: Sepsis type: sepsis due to unspecified organism Qualified Code(s): A41.9 - Sepsis, unspecified organism (4) UTI (urinary tract infection) Code(s): N39.0 - URINARY TRACT INFECTION, SITE NOT SPECIFIED Qualifiers: Urinary tract infection type: site unspecified Hematuria presence: with hematuria Qualified Code(s): N39.0 - Urinary tract infection, site not specified; R31.9 - Hematuria, unspecified; R31.9 - Hematuria, unspecified Assessment/Plan 62 y.o. female with history of DM (hadn't taken metformin for a few days) , HTN , Asthma presenting with lethargy, chills noted to have hyperglycemia, hypotension, tachycardia, RUSSELL, mild temp elevation and leukocytosis DKA RUSSELL - improved E.coli/GBS UTI Group B strep Bacteremia Anemia - wbc remains elevated, repeat tomorrow - continue Unasyn for now - repeat Urine culture - f/u repeat blood culture results pt clinically stable, without complaints.
--- NOTE | 2017-07-24 17:20 | PN ---
Progress Note, Physician History of Present Illness: Pt seen and examined at bedside. She is awake and appears comfortable. - Current Medication List Current Medications: Active Medications Acetaminophen (Tylenol -) 650 mg PO Q6H PRN PRN Reason: FEVER OR PAIN Ampicillin Sodium/Sulbactam (Sodium 3 gm/ Sodium Chloride) 100 mls @ 200 mls/ hr IVPB Q6H-IV JESSICA Last Admin: 07/24/17 15:24 Dose: 200 mls/hr Insulin Aspart (Novolog Vial Sliding Scale -) 1 vial SQ TIDAC JESSICA PRN Reason: Protocol Insulin Aspart (Novolog Vial Sliding Scale -) 1 vial SQ HS JESSICA PRN Reason: Protocol Insulin Detemir (Levemir Vial) 15 units SQ HS JESSICA Potassium Phos/Sodium Phos (Phos-Nak Packet -) 1 packet PO BID JESSICA Last Admin: 07/24/17 09:26 Dose: 1 packet - Objective Vital Signs: Vital Signs Temperature 98.7 F 07/24/17 16:57 Pulse Rate 103 H 07/24/17 16:57 Respiratory Rate 18 07/24/17 16:57 Blood Pressure 142/68 07/24/17 16:57 O2 Sat by Pulse Oximetry (%) 97 07/24/17 16:57 Constitutional: Yes: Calm Eyes: Yes: Conjunctiva Clear HENT: Yes: Atraumatic Neck: Yes: Supple Cardiovascular: Yes: S1, S2 Respiratory: Yes: CTA Bilaterally Gastrointestinal: Yes: Soft Genitourinary: Yes: WNL Musculoskeletal: Yes: WNL Edema: No Neurological: Yes: Oriented Psychiatric: Yes: Oriented Labs: CBC, BMP 07/24/17 05:50 07/24/17 05:50 INR, PTT INR 1.14 (0.82-1.09) 07/21/17 16:19 Problem List - Problems (1) RUSSELL (acute kidney injury) Code(s): N17.9 - ACUTE KIDNEY FAILURE, UNSPECIFIED (2) Anemia Code(s): D64.9 - ANEMIA, UNSPECIFIED (3) Hypophosphatemia Code(s): E83.39 - OTHER DISORDERS OF PHOSPHORUS METABOLISM (4) Altered mental status Code(s): R41.82 - ALTERED MENTAL STATUS, UNSPECIFIED Qualifiers: Altered mental status type: delirium Qualified Code(s): R41.0 - Disorientation, unspecified (5) DKA (diabetic ketoacidoses) Code(s): E13.10 - OTH DIABETES MELLITUS WITH KETOACIDOSIS WITHOUT COMA (6) Diabetes Code(s): E11.9 - TYPE 2 DIABETES MELLITUS WITHOUT COMPLICATIONS (7) Hypertension Code(s): I10 - ESSENTIAL (PRIMARY) HYPERTENSION (8) Hyponatremia Code(s): E87.1 - HYPO-OSMOLALITY AND HYPONATREMIA (9) Sepsis Code(s): A41.9 - SEPSIS, UNSPECIFIED ORGANISM Qualifiers: Sepsis type: sepsis due to unspecified organism Qualified Code(s): A41.9 - Sepsis, unspecified organism (10) UTI (urinary tract infection) Code(s): N39.0 - URINARY TRACT INFECTION, SITE NOT SPECIFIED Qualifiers: Urinary tract infection type: site unspecified Hematuria presence: with hematuria Qualified Code(s): N39.0 - Urinary tract infection, site not specified; R31.9 - Hematuria, unspecified; R31.9 - Hematuria, unspecified Assessment/Plan Current Medications Generic Name Dose Route Start Last Admin Trade Name Freq PRN Reason Stop Dose Admin Acetaminophen 650 mg 07/23/17 19:54 Tylenol - PO Q6H PRN FEVER OR PAIN Ampicillin Sodium/Sulbactam 100 mls @ 200 mls/hr 07/23/17 16:00 07/24/17 15: 24 Sodium 3 gm/ Sodium Chloride IVPB 200 mls/hr Q6H-IV JESSICA Administration Insulin Aspart 1 vial 07/24/17 16:30 Novolog Vial Sliding Scale - SQ TIDAC JESSICA Protocol Insulin Aspart 1 vial 07/24/17 22:00 Novolog Vial Sliding Scale - SQ HS JESSICA Protocol Insulin Detemir 15 units 07/24/17 22:00 Levemir Vial SQ HS JESSICA Potassium Phos/Sodium Phos 1 packet 07/23/17 22:00 07/24/17 09:26 Phos-Nak Packet - PO 1 packet BID JESSICA Administration Laboratory Tests 07/24/17 05:50 Phosphorus 1.6 L D Impression 1. RUSSELL resolving 2. DKA 3. UTI 4. anemia 5. HTN 6. asthma 7. hypophosphatemia Plan - cont phos supplements - repeat ua - anemia workup - pt getting prbc transfusion - will follow prn - monitor lytes closely - RUSSELL likely from dehydration caused from DKA - will follow Dr Navarro
--- NOTE | 2017-07-24 18:34 | PN ---
Progress Note, Physician History of Present Illness: feeling better - Current Medication List Current Medications: Active Medications Acetaminophen (Tylenol -) 650 mg PO Q6H PRN PRN Reason: FEVER OR PAIN Ampicillin Sodium/Sulbactam (Sodium 3 gm/ Sodium Chloride) 100 mls @ 200 mls/ hr IVPB Q6H-IV JESSICA Last Admin: 07/24/17 15:24 Dose: 200 mls/hr Insulin Aspart (Novolog Vial Sliding Scale -) 1 vial SQ TIDAC JESSICA PRN Reason: Protocol Last Admin: 07/24/17 17:21 Dose: 10 units Insulin Aspart (Novolog Vial Sliding Scale -) 1 vial SQ HS JESSICA PRN Reason: Protocol Insulin Detemir (Levemir Vial) 15 units SQ HS JESSICA Potassium Phos/Sodium Phos (Phos-Nak Packet -) 1 packet PO BID JESSICA Last Admin: 07/24/17 09:26 Dose: 1 packet - Objective Vital Signs: Vital Signs Temperature 98.7 F 07/24/17 16:57 Pulse Rate 103 H 07/24/17 16:57 Respiratory Rate 18 07/24/17 16:57 Blood Pressure 142/68 07/24/17 16:57 O2 Sat by Pulse Oximetry (%) 97 07/24/17 16:57 Constitutional: Yes: No Distress HENT: Yes: Atraumatic Neck: Yes: Supple Cardiovascular: Yes: Regular Rate and Rhythm Respiratory: Yes: CTA Bilaterally Gastrointestinal: Yes: Normal Bowel Sounds Extremities: Yes: WNL Neurological: Yes: Alert, Oriented Labs: CBC, BMP 07/24/17 05:50 07/24/17 05:50 INR, PTT INR 1.14 (0.82-1.09) 07/21/17 16:19 Problem List - Problems (1) Altered mental status Assessment/Plan: alert and awake Code(s): R41.82 - ALTERED MENTAL STATUS, UNSPECIFIED Qualifiers: Altered mental status type: delirium Qualified Code(s): R41.0 - Disorientation, unspecified (2) Hyponatremia Assessment/Plan: resolved Code(s): E87.1 - HYPO-OSMOLALITY AND HYPONATREMIA (3) Non-ketotic hyperosmolar coma Assessment/Plan: on meds for diabetes endocrine consult resolved Code(s): E11.01 - TYPE 2 DIABETES MELLITUS WITH HYPEROSMOLARITY WITH COMA (4) Sepsis Assessment/Plan: cxs pending on abx Code(s): A41.9 - SEPSIS, UNSPECIFIED ORGANISM Qualifiers: Sepsis type: sepsis due to unspecified organism Qualified Code(s): A41.9 - Sepsis, unspecified organism (5) UTI (urinary tract infection) Code(s): N39.0 - URINARY TRACT INFECTION, SITE NOT SPECIFIED Qualifiers: Urinary tract infection type: site unspecified Hematuria presence: with hematuria Qualified Code(s): N39.0 - Urinary tract infection, site not specified; R31.9 - Hematuria, unspecified; R31.9 - Hematuria, unspecified
--- NOTE | 2017-07-24 18:38 | PN ---
Progress Note, Physician History of Present Illness: feeling better - Current Medication List Current Medications: Active Medications Acetaminophen (Tylenol -) 650 mg PO Q6H PRN PRN Reason: FEVER OR PAIN Ampicillin Sodium/Sulbactam (Sodium 3 gm/ Sodium Chloride) 100 mls @ 200 mls/ hr IVPB Q6H-IV JESSICA Last Admin: 07/24/17 15:24 Dose: 200 mls/hr Insulin Aspart (Novolog Vial Sliding Scale -) 1 vial SQ TIDAC JESSICA PRN Reason: Protocol Last Admin: 07/24/17 17:21 Dose: 10 units Insulin Aspart (Novolog Vial Sliding Scale -) 1 vial SQ HS JESSICA PRN Reason: Protocol Insulin Detemir (Levemir Vial) 15 units SQ HS JESSICA Potassium Phos/Sodium Phos (Phos-Nak Packet -) 1 packet PO BID JESSICA Last Admin: 07/24/17 09:26 Dose: 1 packet - Objective Vital Signs: Vital Signs Temperature 98.7 F 07/24/17 16:57 Pulse Rate 103 H 07/24/17 16:57 Respiratory Rate 18 07/24/17 16:57 Blood Pressure 142/68 07/24/17 16:57 O2 Sat by Pulse Oximetry (%) 97 07/24/17 16:57 Constitutional: Yes: No Distress HENT: Yes: Atraumatic Neck: Yes: Supple Cardiovascular: Yes: Regular Rate and Rhythm Respiratory: Yes: CTA Bilaterally Gastrointestinal: Yes: Normal Bowel Sounds Extremities: Yes: WNL Neurological: Yes: Alert, Oriented Labs: CBC, BMP 07/24/17 05:50 07/24/17 05:50 INR, PTT INR 1.14 (0.82-1.09) 07/21/17 16:19 Problem List - Problems (1) Altered mental status Assessment/Plan: alert and awake Code(s): R41.82 - ALTERED MENTAL STATUS, UNSPECIFIED Qualifiers: Altered mental status type: delirium Qualified Code(s): R41.0 - Disorientation, unspecified (2) Hyponatremia Assessment/Plan: resolved Code(s): E87.1 - HYPO-OSMOLALITY AND HYPONATREMIA (3) Non-ketotic hyperosmolar coma Assessment/Plan: on meds for diabetes endocrine consult resolved Code(s): E11.01 - TYPE 2 DIABETES MELLITUS WITH HYPEROSMOLARITY WITH COMA (4) Sepsis Assessment/Plan: cxs pending on abx Code(s): A41.9 - SEPSIS, UNSPECIFIED ORGANISM Qualifiers: Sepsis type: sepsis due to unspecified organism Qualified Code(s): A41.9 - Sepsis, unspecified organism (5) UTI (urinary tract infection) Assessment/Plan: gram negative ... on abx Code(s): N39.0 - URINARY TRACT INFECTION, SITE NOT SPECIFIED Qualifiers: Urinary tract infection type: site unspecified Hematuria presence: with hematuria Qualified Code(s): N39.0 - Urinary tract infection, site not specified; R31.9 - Hematuria, unspecified; R31.9 - Hematuria, unspecified (6) Anemia Code(s): D64.9 - ANEMIA, UNSPECIFIED (7) Diabetes Assessment/Plan: ON BGMS AND INSULIN ENDO CONSULT Code(s): E11.9 - TYPE 2 DIABETES MELLITUS WITHOUT COMPLICATIONS (8) Hypertension Assessment/Plan: ON MEDS STABLE Code(s): I10 - ESSENTIAL (PRIMARY) HYPERTENSION
[2017-07-24] MEDS: INSULIN DETEMIR 100 UNITS/ML MDV SQ SCH (21:18)
[2017-07-25] MEDS: AMPICILLIN NA/SULBACTAM NA 3 GM in SODIUM CHLORIDE 100 ML IVPB SCH ×4 (03:01→21:40)
[2017-07-25] MEDS: ACETAMINOPHEN 325 MG TABLET (FP) PO PRN (03:26)
[2017-07-25] MEDS: INSULIN SLIDING SCALE (NOVOLOG) 1 VIAL SQ SCH ×4 (06:14→21:42)
[2017-07-25 07:50] LABS: MCH 26.9 pg (25.7-33.7); MCHC 32.8 g/dl (32.0-36.0); MEAN CELL VOLUME 82.1 fl (80-96); MEAN PLT VOLUME 9.5 fl (7.5-11.1); PLATELET COUNT 222 K/MM3 (134-434); RDW 16.2 % (11.6-15.6); WHITE BLOOD COUNT 18.8 K/mm3 (4.0-10.0)
[2017-07-25 08:01] LABS: ALBUMIN 1.5 g/dl (3.4-5.0); ALK PHOS 335 U/L (45-117); ANION GAP 9 (8-16); BILIRUBIN,TOTAL 0.7 mg/dL (0.2-1.0); CALCIUM 7.3 mg/dL (8.5-10.1); CO2 23 mmol/L (21-32); CREATININE 0.5 mg/dL (0.55-1.02); GLUCOSE,RANDOM 171 mg/dL (74-106); MAGNESIUM 2.1 mg/dL (1.8-2.4); PHOSPHOROUS 2.2 mg/dL (2.5-4.9); SGOT/AST 40 U/L (15-37); SGPT/ALT 22 U/L (12-78); TOT PROT 5.3 g/dl (6.4-8.2)
[2017-07-25] MEDS ORDERED: PT OWN MED DRAWER 7, Y5N ONE ×4 (09:33→19:47)
[2017-07-25] MEDS: NAPH,MB-DB/K PH,MBDB POWDER PACKET PO SCH ×2 (09:35→21:40)
[2017-07-25 09:37] LABS: URINE APPEARANCE CLEAR; URINE BILIRUBIN NEGATIVE (NEGATIVE); URINE BLOOD 1+ (NEGATIVE); URINE COLOR LTYELLOW; URINE GLUCOSE (UA) 2+ (NEGATIVE); URINE KETONE TRACE (NEGATIVE); URINE NITRITE NEGATIVE (NEGATIVE); URINE PROTEIN NEGATIVE (NEGATIVE); URINE UROBILINOGEN NEGATIVE mg/dL (0.2-1.0)
[2017-07-25 09:42] LABS: URINE LEUK ESTERASE 3+ (NEGATIVE)
[2017-07-25 10:10] LABS: URINE RBC 4 /hpf (0-3); URINE WBC 30 /hpf (3-5)
[2017-07-25 11:02] LABS: URINE LEUK ESTERASE 1+ (NEGATIVE)
[2017-07-25] MEDS ORDERED: INSULIN (NOVOLOG) ASPART 100 UNITS/ML 10ML VIAL ONE ×2 (11:44→21:00)
[2017-07-25 12:03] LABS: ANISOCYTOSIS 1+; BAND % 10.7 %; HYPOCHROMIA 1+; MACROCYTOSIS 0; METAMYELOCYTE 2 % (0-2); MICROCYTOSIS 0; PLATELET ESTIMATE NORMAL; POIKILOCYTOSIS 0; POLYCHROMASIA 1+; REACTIVE LYMPHOCYTES 3 % (0-80)
[2017-07-25 12:05] LABS: MYELOCYTE 6 % (0-2); PLATELET COMMENTS PRESENT; TOTAL CELLS COUNTED 100
[2017-07-25] MEDS ORDERED: CASPOFUNGIN ACETATE 70 MG in SODIUM CHLORIDE 250 ML IV ONE (13:00)
--- NOTE | 2017-07-25 13:18 | PN ---
Progress Note, Physician History of Present Illness: Pt feels well, eating. Tmax of 100.9F. Denies any specific complaints. - Current Medication List Current Medications: Active Medications Acetaminophen (Tylenol -) 650 mg PO Q6H PRN PRN Reason: FEVER OR PAIN Last Admin: 07/25/17 03:26 Dose: 650 mg Ampicillin Sodium/Sulbactam (Sodium 3 gm/ Sodium Chloride) 100 mls @ 200 mls/ hr IVPB Q6H-IV JESSICA Last Admin: 07/25/17 09:35 Dose: 200 mls/hr Caspofungin 70 mg/ Sodium (Chloride) 250 mls @ 250 mls/hr IV ONCE ONE Stop: 07/25/17 13:59 Caspofungin 50 mg/ Sodium (Chloride) 250 mls @ 250 mls/hr IV DAILY JESSICA Insulin Aspart (Novolog Vial Sliding Scale -) 1 vial SQ TIDAC JESSICA PRN Reason: Protocol Last Admin: 07/25/17 11:50 Dose: 6 units Insulin Aspart (Novolog Vial Sliding Scale -) 1 vial SQ HS JESSICA PRN Reason: Protocol Last Admin: 07/24/17 21:17 Dose: 6 units Insulin Detemir (Levemir Vial) 15 units SQ HS JESSICA Last Admin: 07/24/17 21:18 Dose: 15 units Potassium Phos/Sodium Phos (Phos-Nak Packet -) 1 packet PO BID JESSICA Last Admin: 07/25/17 09:35 Dose: 1 packet - Objective Vital Signs: Vital Signs Temperature 98.4 F 07/25/17 09:31 Pulse Rate 100 H 07/25/17 09:31 Respiratory Rate 20 07/25/17 09:31 Blood Pressure 137/71 07/25/17 09:31 O2 Sat by Pulse Oximetry (%) 97 07/24/17 21:00 Constitutional: Yes: No Distress, Calm Cardiovascular: Yes: Tachycardia Respiratory: Yes: CTA Bilaterally Gastrointestinal: Yes: Normal Bowel Sounds, Soft Genitourinary: Yes: WNL Extremities: Yes: WNL Integumentary: Yes: WNL Neurological: Yes: Alert, Oriented Labs: CBC, BMP 07/25/17 06:00 07/25/17 06:00 INR, PTT INR 1.14 (0.82-1.09) 07/21/17 16:19 Problem List - Problems (1) DKA (diabetic ketoacidoses) Code(s): E13.10 - OTH DIABETES MELLITUS WITH KETOACIDOSIS WITHOUT COMA (2) Diabetes Code(s): E11.9 - TYPE 2 DIABETES MELLITUS WITHOUT COMPLICATIONS (3) Sepsis Code(s): A41.9 - SEPSIS, UNSPECIFIED ORGANISM Qualifiers: Sepsis type: sepsis due to unspecified organism Qualified Code(s): A41.9 - Sepsis, unspecified organism (4) UTI (urinary tract infection) Code(s): N39.0 - URINARY TRACT INFECTION, SITE NOT SPECIFIED Qualifiers: Urinary tract infection type: site unspecified Hematuria presence: with hematuria Qualified Code(s): N39.0 - Urinary tract infection, site not specified; R31.9 - Hematuria, unspecified; R31.9 - Hematuria, unspecified (5) Fungemia Code(s): B49 - UNSPECIFIED MYCOSIS Assessment/Plan 62 y.o. female with history of DM (hadn't taken metformin for a few days) , HTN , Asthma presenting with lethargy, chills noted to have hyperglycemia, hypotension, tachycardia, RUSSELL, mild temp elevation and leukocytosis DKA RUSSELL - improved E.coli/GBS UTI Group B strep Bacteremia Worsening leukocytosis Fungemia - continue Unasyn - start Caspofungin IV - once start therapy repeat blood cultures daily. will need 2 wks treatment from 1st Blood cultures with no growth - suggest ophthalmology consult to r/o endophthalmitis - repeat cbc to monitor wbc trend pt clinically stable, without complaints.
--- NOTE | 2017-07-25 16:01 | PN ---
Progress Note, Physician History of Present Illness: Pt seen and examined at bedside. She has no complaints. - Current Medication List Current Medications: Active Medications Acetaminophen (Tylenol -) 650 mg PO Q6H PRN PRN Reason: FEVER OR PAIN Last Admin: 07/25/17 03:26 Dose: 650 mg Ampicillin Sodium/Sulbactam (Sodium 3 gm/ Sodium Chloride) 100 mls @ 200 mls/ hr IVPB Q6H-IV JESSICA Last Admin: 07/25/17 15:17 Dose: 200 mls/hr Caspofungin 50 mg/ Sodium (Chloride) 250 mls @ 250 mls/hr IV DAILY JESSICA Insulin Aspart (Novolog Vial Sliding Scale -) 1 vial SQ TIDAC JESSICA PRN Reason: Protocol Last Admin: 07/25/17 11:50 Dose: 6 units Insulin Aspart (Novolog Vial Sliding Scale -) 1 vial SQ HS JESSICA PRN Reason: Protocol Last Admin: 07/24/17 21:17 Dose: 6 units Insulin Detemir (Levemir Vial) 15 units SQ HS JESSICA Last Admin: 07/24/17 21:18 Dose: 15 units Potassium Phos/Sodium Phos (Phos-Nak Packet -) 1 packet PO BID JESSICA Last Admin: 07/25/17 09:35 Dose: 1 packet - Objective Vital Signs: Vital Signs Temperature 98.4 F 07/25/17 09:31 Pulse Rate 100 H 07/25/17 09:31 Respiratory Rate 20 07/25/17 09:31 Blood Pressure 137/71 07/25/17 09:31 O2 Sat by Pulse Oximetry (%) 97 07/24/17 21:00 Constitutional: Yes: Calm Eyes: Yes: Conjunctiva Clear HENT: Yes: Atraumatic Cardiovascular: Yes: S1, S2 Respiratory: Yes: CTA Bilaterally Gastrointestinal: Yes: Soft Genitourinary: Yes: WNL Edema: No Neurological: Yes: Oriented Psychiatric: Yes: Oriented Labs: CBC, BMP 07/25/17 06:00 07/25/17 06:00 INR, PTT INR 1.14 (0.82-1.09) 07/21/17 16:19 Problem List - Problems (1) RUSSELL (acute kidney injury) Code(s): N17.9 - ACUTE KIDNEY FAILURE, UNSPECIFIED (2) Anemia Code(s): D64.9 - ANEMIA, UNSPECIFIED (3) Hypophosphatemia Code(s): E83.39 - OTHER DISORDERS OF PHOSPHORUS METABOLISM (4) Altered mental status Code(s): R41.82 - ALTERED MENTAL STATUS, UNSPECIFIED Qualifiers: Altered mental status type: delirium Qualified Code(s): R41.0 - Disorientation, unspecified (5) DKA (diabetic ketoacidoses) Code(s): E13.10 - OTH DIABETES MELLITUS WITH KETOACIDOSIS WITHOUT COMA (6) Diabetes Code(s): E11.9 - TYPE 2 DIABETES MELLITUS WITHOUT COMPLICATIONS (7) Hypertension Code(s): I10 - ESSENTIAL (PRIMARY) HYPERTENSION (8) Hyponatremia Code(s): E87.1 - HYPO-OSMOLALITY AND HYPONATREMIA (9) Sepsis Code(s): A41.9 - SEPSIS, UNSPECIFIED ORGANISM Qualifiers: Sepsis type: sepsis due to unspecified organism Qualified Code(s): A41.9 - Sepsis, unspecified organism (10) UTI (urinary tract infection) Code(s): N39.0 - URINARY TRACT INFECTION, SITE NOT SPECIFIED Qualifiers: Urinary tract infection type: site unspecified Hematuria presence: with hematuria Qualified Code(s): N39.0 - Urinary tract infection, site not specified; R31.9 - Hematuria, unspecified; R31.9 - Hematuria, unspecified Assessment/Plan Current Medications Generic Name Dose Route Start Last Admin Trade Name Freq PRN Reason Stop Dose Admin Acetaminophen 650 mg 07/23/17 19:54 07/25/17 03:26 Tylenol - PO 650 mg Q6H PRN Administration FEVER OR PAIN Ampicillin Sodium/Sulbactam 100 mls @ 200 mls/hr 07/23/17 16:00 07/25/17 15: 17 Sodium 3 gm/ Sodium Chloride IVPB 200 mls/hr Q6H-IV JESSICA Administration Caspofungin 50 mg/ Sodium 250 mls @ 250 mls/hr 07/26/17 10:00 Chloride IV DAILY JESSICA Insulin Aspart 1 vial 07/24/17 16:30 07/25/17 11:50 Novolog Vial Sliding Scale - SQ 6 units TIDAC JESSICA Administration Protocol Insulin Aspart 1 vial 07/24/17 22:00 07/24/17 21:17 Novolog Vial Sliding Scale - SQ 6 units HS JESSICA Administration Protocol Insulin Detemir 15 units 07/24/17 22:00 07/24/17 21:18 Levemir Vial SQ 15 units HS JESSICA Administration Potassium Phos/Sodium Phos 1 packet 07/23/17 22:00 07/25/17 09:35 Phos-Nak Packet - PO 1 packet BID JESSICA Administration Laboratory Tests 07/25/17 08:40 Urine Blood 1+ H Impression 1. RUSSELL resolving 2. DKA 3. UTI 4. anemia 5. HTN 6. asthma 7. hypophosphatemia 8. microscopic hematuria Plan - repeat ua once pt completes abx - if pt continues to have microscoic hematuria with a clean cathc urine then will need further workup - can see pt in office - cont phos supplements - anemia workup - will follow prn Dr Navarro
--- NOTE | 2017-07-25 17:20 | PN ---
Progress Note, Physician History of Present Illness: feeling better - Current Medication List Current Medications: Active Medications Acetaminophen (Tylenol -) 650 mg PO Q6H PRN PRN Reason: FEVER OR PAIN Last Admin: 07/25/17 03:26 Dose: 650 mg Ampicillin Sodium/Sulbactam (Sodium 3 gm/ Sodium Chloride) 100 mls @ 200 mls/ hr IVPB Q6H-IV JESSICA Last Admin: 07/25/17 15:17 Dose: 200 mls/hr Caspofungin 50 mg/ Sodium (Chloride) 250 mls @ 250 mls/hr IV DAILY JESSICA Insulin Aspart (Novolog Vial Sliding Scale -) 1 vial SQ TIDAC JESSICA PRN Reason: Protocol Last Admin: 07/25/17 11:50 Dose: 6 units Insulin Aspart (Novolog Vial Sliding Scale -) 1 vial SQ HS JESSICA PRN Reason: Protocol Last Admin: 07/24/17 21:17 Dose: 6 units Insulin Detemir (Levemir Vial) 15 units SQ HS JESSICA Last Admin: 07/24/17 21:18 Dose: 15 units Potassium Phos/Sodium Phos (Phos-Nak Packet -) 1 packet PO BID JESSICA Last Admin: 07/25/17 09:35 Dose: 1 packet - Objective Vital Signs: Vital Signs Temperature 99.1 F 07/25/17 17:09 Pulse Rate 108 H 07/25/17 17:09 Respiratory Rate 20 07/25/17 17:09 Blood Pressure 153/78 07/25/17 17:09 O2 Sat by Pulse Oximetry (%) 97 07/24/17 21:00 Constitutional: Yes: No Distress HENT: Yes: Normocephalic Cardiovascular: Yes: Regular Rate and Rhythm Respiratory: Yes: CTA Bilaterally Gastrointestinal: Yes: Normal Bowel Sounds Extremities: Yes: WNL Neurological: Yes: Alert, Oriented Labs: CBC, BMP 07/25/17 06:00 07/25/17 06:00 INR, PTT INR 1.14 (0.82-1.09) 07/21/17 16:19 Problem List - Problems (1) Altered mental status Assessment/Plan: alert and awake Code(s): R41.82 - ALTERED MENTAL STATUS, UNSPECIFIED Qualifiers: Altered mental status type: delirium Qualified Code(s): R41.0 - Disorientation, unspecified (2) Hyponatremia Assessment/Plan: resolved Code(s): E87.1 - HYPO-OSMOLALITY AND HYPONATREMIA (3) Non-ketotic hyperosmolar coma Assessment/Plan: on meds for diabetes endocrine consult resolved Code(s): E11.01 - TYPE 2 DIABETES MELLITUS WITH HYPEROSMOLARITY WITH COMA (4) Sepsis Assessment/Plan: cxs pending on abx Code(s): A41.9 - SEPSIS, UNSPECIFIED ORGANISM Qualifiers: Sepsis type: sepsis due to unspecified organism Qualified Code(s): A41.9 - Sepsis, unspecified organism (5) UTI (urinary tract infection) Code(s): N39.0 - URINARY TRACT INFECTION, SITE NOT SPECIFIED Qualifiers: Urinary tract infection type: site unspecified Hematuria presence: with hematuria Qualified Code(s): N39.0 - Urinary tract infection, site not specified; R31.9 - Hematuria, unspecified; R31.9 - Hematuria, unspecified (6) Anemia Code(s): D64.9 - ANEMIA, UNSPECIFIED (7) Diabetes Code(s): E11.9 - TYPE 2 DIABETES MELLITUS WITHOUT COMPLICATIONS (8) Hypertension Code(s): I10 - ESSENTIAL (PRIMARY) HYPERTENSION
[2017-07-25] MEDS: INSULIN DETEMIR 100 UNITS/ML MDV SQ SCH (21:43)
[2017-07-26] MEDS: ACETAMINOPHEN 325 MG TABLET (FP) PO PRN (00:07)
[2017-07-26] MEDS: AMPICILLIN NA/SULBACTAM NA 3 GM in SODIUM CHLORIDE 100 ML IVPB SCH ×4 (02:23→21:41)
[2017-07-26] MEDS: INSULIN SLIDING SCALE (NOVOLOG) 1 VIAL SQ SCH ×4 (06:15→21:38)
[2017-07-26 07:36] LABS: MCH 26.4 pg (25.7-33.7); MEAN CELL VOLUME 82.5 fl (80-96); MEAN PLT VOLUME 9.7 fl (7.5-11.1); PLATELET COUNT 220 K/MM3 (134-434); RDW 16.7 % (11.6-15.6); WHITE BLOOD COUNT 22.8 K/mm3 (4.0-10.0)
[2017-07-26 09:14] LABS: CREATININE 0.4 mg/dL (0.55-1.02); GLUCOSE,RANDOM 96 mg/dL (74-106)
[2017-07-26 09:15] LABS: ALBUMIN 1.5 g/dl (3.4-5.0); ALK PHOS 359 U/L (45-117); ANION GAP 12 (8-16); BILIRUBIN,TOTAL 0.8 mg/dL (0.2-1.0); CALCIUM 7.3 mg/dL (8.5-10.1); CO2 23 mmol/L (21-32); SGOT/AST 30 U/L (15-37); SGPT/ALT 18 U/L (12-78); TOT PROT 5.2 g/dl (6.4-8.2)
[2017-07-26] MEDS: NAPH,MB-DB/K PH,MBDB POWDER PACKET PO SCH ×2 (09:57→21:37)
[2017-07-26 10:18] LABS: METAMYELOCYTE 1 % (0-2); MYELOCYTE 2 % (0-2); NUCLEATED RED BLOOD CELL 1 % (0-0); PLATELET ESTIMATE ADEQUATE; TOTAL CELLS COUNTED 100
[2017-07-26] MEDS: CASPOFUNGIN ACETATE 50 MG in SODIUM CHLORIDE 250 ML IV SCH (10:29)
--- NOTE | 2017-07-26 16:51 | PN ---
Progress Note (short form) - Note Progress Note: Feels better Denies any complaints Blood sugar improving Vital Signs Period Temp Pulse Resp BP Sys/Slade Pulse Ox Last 24 Hr 99.0 F-102.8 F 102-126 20-24 133-153/61-78 96-96 PE: AOx3 Neck: Supple, No JVD HEENT: PERRL, EOMi Lungs: CTA CVS: S1S2 Abd: Benign EXt: No edema Neuro: No focal deficit CMP Sodium 139 mmol/L (136-145) 07/26/17 06:00 Potassium 3.5 mmol/L (3.5-5.1) 07/26/17 06:00 Chloride 104 mmol/L (98-107) 07/26/17 06:00 Carbon Dioxide 23 mmol/L (21-32) 07/26/17 06:00 Anion Gap 12 (8-16) 07/26/17 06:00 BUN 3 mg/dL (7-18) L D 07/26/17 06:00 Creatinine 0.4 mg/dL (0.55-1.02) L 07/26/17 06:00 Creat Clearance w eGFR > 60 (>60) 07/26/17 06:00 POC Glucometer 210 UNITS (80-120) 07/26/17 12:16 Random Glucose 96 mg/dL (74-106) D 07/26/17 06:00 Lactic Acid 1.2 mmol/L (0.4-2.0) 07/21/17 23:10 Calcium 7.3 mg/dL (8.5-10.1) L 07/26/17 06:00 Phosphorus 2.2 mg/dL (2.5-4.9) L D 07/25/17 06:00 Magnesium 2.1 mg/dL (1.8-2.4) 07/25/17 06:00 Iron 83 ug/dL (27-139) 07/24/17 06:30 Transferrin 142 mg/dL (200-370) L 07/24/17 06:30 Ferritin 414.588 ng/ml (6.9-282.5) H 07/24/17 05:50 Total Bilirubin 0.8 mg/dL (0.2-1.0) 07/26/17 06:00 AST 30 U/L (15-37) D 07/26/17 06:00 ALT 18 U/L (12-78) 07/26/17 06:00 Alkaline Phosphatase 359 U/L (45-117) H 07/26/17 06:00 Creatine Kinase 1060 IU/L (26-192) H 07/21/17 16:19 Creatine Kinase Index 0.2 % (0.0-5.0) 07/21/17 16:19 CK-MB (CK-2) 2.922 ng/mL (0.5-3.6) 07/21/17 16:19 Troponin I < 0.02 ng/ml (0.00-0.05) 07/21/17 16:19 Total Protein 5.2 g/dl (6.4-8.2) L 07/26/17 06:00 Albumin 1.5 g/dl (3.4-5.0) L 07/26/17 06:00 Current Medications Generic Name Dose Route Start Last Admin Trade Name Freq PRN Reason Stop Dose Admin Acetaminophen 650 mg 07/23/17 19:54 07/26/17 00:07 Tylenol - PO 650 mg Q6H PRN Administration FEVER OR PAIN Ampicillin Sodium/Sulbactam 100 mls @ 200 mls/hr 07/23/17 16:00 07/26/17 14: 40 Sodium 3 gm/ Sodium Chloride IVPB 200 mls/hr Q6H-IV JESSICA Administration Caspofungin 50 mg/ Sodium 250 mls @ 250 mls/hr 07/26/17 10:00 07/26/17 10:29 Chloride IV 250 mls/hr DAILY JESSICA Administration Insulin Aspart 1 vial 07/24/17 16:30 07/26/17 12:37 Novolog Vial Sliding Scale - SQ 6 units TIDAC JESSICA Administration Protocol Insulin Aspart 1 vial 07/24/17 22:00 07/25/17 21:42 Novolog Vial Sliding Scale - SQ 6 units HS JESSICA Administration Protocol Insulin Detemir 15 units 07/24/17 22:00 07/25/17 21:43 Levemir Vial SQ 15 units HS JESSICA Administration Potassium Phos/Sodium Phos 1 packet 07/23/17 22:00 07/26/17 09:57 Phos-Nak Packet - PO 1 packet BID JESSICA Administration AP: DKA: resolved DM Bacterimia/Fungemia Anemia: s/p blood transfusion Increase Levemir 15 units daily at HS Novolog coverage BGM QACHS IV Abx Check Phosphorous in a.m. and stop Neutrophos if normal Neutrophos 2 pkt BID Electrolyte replacement as necessary Problem List - Problems (1) Altered mental status Code(s): R41.82 - ALTERED MENTAL STATUS, UNSPECIFIED Qualifiers: Altered mental status type: delirium Qualified Code(s): R41.0 - Disorientation, unspecified (2) DKA (diabetic ketoacidoses) Code(s): E13.10 - OTH DIABETES MELLITUS WITH KETOACIDOSIS WITHOUT COMA (3) Hyponatremia Code(s): E87.1 - HYPO-OSMOLALITY AND HYPONATREMIA
--- NOTE | 2017-07-26 18:05 | PN ---
Progress Note, Physician History of Present Illness: feeling better - Current Medication List Current Medications: Active Medications Acetaminophen (Tylenol -) 650 mg PO Q6H PRN PRN Reason: FEVER OR PAIN Last Admin: 07/26/17 00:07 Dose: 650 mg Ampicillin Sodium/Sulbactam (Sodium 3 gm/ Sodium Chloride) 100 mls @ 200 mls/ hr IVPB Q6H-IV JESSICA Last Admin: 07/26/17 14:40 Dose: 200 mls/hr Caspofungin 50 mg/ Sodium (Chloride) 250 mls @ 250 mls/hr IV DAILY JESSICA Last Admin: 07/26/17 10:29 Dose: 250 mls/hr Insulin Aspart (Novolog Vial Sliding Scale -) 1 vial SQ TIDAC JESSICA PRN Reason: Protocol Last Admin: 07/26/17 12:37 Dose: 6 units Insulin Aspart (Novolog Vial Sliding Scale -) 1 vial SQ HS JESSICA PRN Reason: Protocol Last Admin: 07/25/17 21:42 Dose: 6 units Insulin Detemir (Levemir Vial) 15 units SQ HS JESSICA Last Admin: 07/25/17 21:43 Dose: 15 units Potassium Phos/Sodium Phos (Phos-Nak Packet -) 1 packet PO BID JESSICA Last Admin: 07/26/17 09:57 Dose: 1 packet - Objective Vital Signs: Vital Signs Temperature 98.5 F 07/26/17 17:30 Pulse Rate 107 H 07/26/17 17:30 Respiratory Rate 20 07/26/17 17:30 Blood Pressure 141/65 07/26/17 17:30 O2 Sat by Pulse Oximetry (%) 96 07/26/17 09:00 Constitutional: Yes: Calm HENT: Yes: Atraumatic Neck: Yes: Supple Cardiovascular: Yes: Regular Rate and Rhythm Respiratory: Yes: CTA Bilaterally, Rhonchi Gastrointestinal: Yes: Normal Bowel Sounds Extremities: Yes: WNL Edema: No Peripheral Pulses WNL: Yes Neurological: Yes: Alert, Oriented Labs: CBC, BMP 07/26/17 06:00 07/26/17 06:00 INR, PTT INR 1.14 (0.82-1.09) 07/21/17 16:19 Problem List - Problems (1) Altered mental status Assessment/Plan: alert and awake Code(s): R41.82 - ALTERED MENTAL STATUS, UNSPECIFIED Qualifiers: Altered mental status type: delirium Qualified Code(s): R41.0 - Disorientation, unspecified (2) Hyponatremia Assessment/Plan: resolved Code(s): E87.1 - HYPO-OSMOLALITY AND HYPONATREMIA (3) Non-ketotic hyperosmolar coma Assessment/Plan: on meds for diabetes endocrine consult resolved Code(s): E11.01 - TYPE 2 DIABETES MELLITUS WITH HYPEROSMOLARITY WITH COMA (4) Sepsis Assessment/Plan: cxs pending on abx Code(s): A41.9 - SEPSIS, UNSPECIFIED ORGANISM Qualifiers: Sepsis type: sepsis due to unspecified organism Qualified Code(s): A41.9 - Sepsis, unspecified organism (5) UTI (urinary tract infection) Assessment/Plan: gram negative ... on abx Code(s): N39.0 - URINARY TRACT INFECTION, SITE NOT SPECIFIED Qualifiers: Urinary tract infection type: site unspecified Hematuria presence: with hematuria Qualified Code(s): N39.0 - Urinary tract infection, site not specified; R31.9 - Hematuria, unspecified; R31.9 - Hematuria, unspecified (6) Anemia Code(s): D64.9 - ANEMIA, UNSPECIFIED (7) Diabetes Code(s): E11.9 - TYPE 2 DIABETES MELLITUS WITHOUT COMPLICATIONS (8) Hypertension Code(s): I10 - ESSENTIAL (PRIMARY) HYPERTENSION Assessment/Plan DR SERVIN COVERING JUL 27- AUG 12
[2017-07-26] MEDS: INSULIN DETEMIR 100 UNITS/ML MDV SQ SCH (21:37)
[2017-07-26] MEDS ORDERED: PT OWN MED DRAWER 7, Y5N ONE (21:41)
[2017-07-27] MEDS: AMPICILLIN NA/SULBACTAM NA 3 GM in SODIUM CHLORIDE 100 ML IVPB SCH ×4 (02:13→21:09)
[2017-07-27] MEDS: INSULIN SLIDING SCALE (NOVOLOG) 1 VIAL SQ SCH ×4 (06:40→21:11)
[2017-07-27] MEDS ORDERED: PT OWN MED DRAWER 7, Y5N ONE ×2 (09:12→15:29)
[2017-07-27] MEDS: NAPH,MB-DB/K PH,MBDB POWDER PACKET PO SCH (09:15)
[2017-07-27] MEDS: CASPOFUNGIN ACETATE 50 MG in SODIUM CHLORIDE 250 ML IV SCH (09:52)
--- NOTE | 2017-07-27 12:57 | PN ---
Progress Note, Physician Chief Complaint: no new complaints History of Present Illness: 62 yrs old F with H/O DN admitted with DKA , with UTI and Hyponatremia and AMS - Current Medication List Current Medications: Active Medications Acetaminophen (Tylenol -) 650 mg PO Q6H PRN PRN Reason: FEVER OR PAIN Last Admin: 07/26/17 00:07 Dose: 650 mg Ampicillin Sodium/Sulbactam (Sodium 3 gm/ Sodium Chloride) 100 mls @ 200 mls/ hr IVPB Q6H-IV JESSICA Last Admin: 07/27/17 09:14 Dose: 200 mls/hr Caspofungin 50 mg/ Sodium (Chloride) 250 mls @ 250 mls/hr IV DAILY JESSICA Last Admin: 07/27/17 09:52 Dose: 250 mls/hr Insulin Aspart (Novolog Vial Sliding Scale -) 1 vial SQ TIDAC JESSICA PRN Reason: Protocol Last Admin: 07/27/17 12:16 Dose: 2 units Insulin Aspart (Novolog Vial Sliding Scale -) 1 vial SQ HS JESSICA PRN Reason: Protocol Last Admin: 07/26/17 21:38 Dose: 4 units Insulin Detemir (Levemir Vial) 15 units SQ HS JESSICA Last Admin: 07/26/17 21:37 Dose: 15 units Potassium Phos/Sodium Phos (Phos-Nak Packet -) 1 packet PO BID JESSICA Last Admin: 07/27/17 09:15 Dose: 1 packet - Objective Vital Signs: Vital Signs Temperature 99 F 07/27/17 06:00 Pulse Rate 100 H 07/27/17 06:00 Respiratory Rate 20 07/27/17 06:00 Blood Pressure 140/60 07/27/17 06:00 O2 Sat by Pulse Oximetry (%) 98 07/26/17 21:00 GENERAL: Middle aged F Awake, alert, and fully oriented, in no acute distress HEAD: No signs of trauma EYES: PERRLA, EOMI, sclera anicteric, conjunctiva clear ENT: Auricles normal inspection, hearing grossly normal, nares patent, oropharynx clear without exudates. Moist mucosa NECK: Normal ROM, supple, no lymphadenopathy, JVD, or masses LUNGS: Breath sounds equal, clear to auscultation bilaterally. No wheezes, and no crackles HEART: Regular rate and rhythm, normal S1 and S2, no murmurs, rubs or gallops ABDOMEN: Soft, non tender, normoactive bowel sounds. No guarding, no rebound. No masses EXTREMITIES: Normal range of motion, no edema. No clubbing or cyanosis. No cords, erythema, or tenderness NEUROLOGICAL: Cranial nerves II through XII grossly intact. Normal speech, normal gait SKIN: Warm, Dry, normal turgor, no rashes or lesions noted Labs: CBC, BMP 07/26/17 06:00 07/26/17 06:00 INR, PTT INR 1.14 (0.82-1.09) 07/21/17 16:19 Problem List - Problems (1) Altered mental status Assessment/Plan: Due to sepsis and Hypoglycemia, now resolved Code(s): R41.82 - ALTERED MENTAL STATUS, UNSPECIFIED Qualifiers: Altered mental status type: delirium Qualified Code(s): R41.0 - Disorientation, unspecified (2) DKA (diabetic ketoacidoses) Assessment/Plan: Due to Infection , fS are well controlled optimize Glycemic control Code(s): E13.10 - OTH DIABETES MELLITUS WITH KETOACIDOSIS WITHOUT COMA (3) Fungemia Assessment/Plan: On Capsofungin F/U ID Recommondations Code(s): B49 - UNSPECIFIED MYCOSIS (4) Hypophosphatemia Assessment/Plan: Repleted F/U CMP Code(s): E83.39 - OTHER DISORDERS OF PHOSPHORUS METABOLISM (5) UTI (urinary tract infection) Assessment/Plan: On IV Unasyn F/U ID Recommondations Code(s): N39.0 - URINARY TRACT INFECTION, SITE NOT SPECIFIED Qualifiers: Urinary tract infection type: site unspecified Hematuria presence: with hematuria Qualified Code(s): N39.0 - Urinary tract infection, site not specified; R31.9 - Hematuria, unspecified; R31.9 - Hematuria, unspecified
--- NOTE | 2017-07-27 16:58 | PN ---
Progress Note (short form) - Note Progress Note: Feels better Denies any complaints Blood sugar acceptable No hypoglycemia Vital Signs Period Temp Pulse Resp BP Sys/Slade Pulse Ox Last 24 Hr 98.0 F-99 F 100-107 20-20 137-150/60-79 98 PE: AOx3 Neck: Supple, No JVD HEENT: PERRL, EOMi Lungs: CTA CVS: S1S2 Abd: Benign EXt: No edema Neuro: No focal deficit CMP Sodium 139 mmol/L (136-145) 07/26/17 06:00 Potassium 3.5 mmol/L (3.5-5.1) 07/26/17 06:00 Chloride 104 mmol/L (98-107) 07/26/17 06:00 Carbon Dioxide 23 mmol/L (21-32) 07/26/17 06:00 Anion Gap 12 (8-16) 07/26/17 06:00 BUN 3 mg/dL (7-18) L D 07/26/17 06:00 Creatinine 0.4 mg/dL (0.55-1.02) L 07/26/17 06:00 Creat Clearance w eGFR > 60 (>60) 07/26/17 06:00 POC Glucometer 150 UNITS (80-120) 07/27/17 12:04 Random Glucose 96 mg/dL (74-106) D 07/26/17 06:00 Lactic Acid 1.2 mmol/L (0.4-2.0) 07/21/17 23:10 Calcium 7.3 mg/dL (8.5-10.1) L 07/26/17 06:00 Phosphorus 3.4 mg/dL (2.5-4.9) D 07/27/17 07:00 Magnesium 2.1 mg/dL (1.8-2.4) 07/25/17 06:00 Iron 83 ug/dL (27-139) 07/24/17 06:30 Transferrin 142 mg/dL (200-370) L 07/24/17 06:30 Ferritin 414.588 ng/ml (6.9-282.5) H 07/24/17 05:50 Total Bilirubin 0.8 mg/dL (0.2-1.0) 07/26/17 06:00 AST 30 U/L (15-37) D 07/26/17 06:00 ALT 18 U/L (12-78) 07/26/17 06:00 Alkaline Phosphatase 359 U/L (45-117) H 07/26/17 06:00 Creatine Kinase 1060 IU/L (26-192) H 07/21/17 16:19 Creatine Kinase Index 0.2 % (0.0-5.0) 07/21/17 16:19 CK-MB (CK-2) 2.922 ng/mL (0.5-3.6) 07/21/17 16:19 Troponin I < 0.02 ng/ml (0.00-0.05) 07/21/17 16:19 Total Protein 5.2 g/dl (6.4-8.2) L 07/26/17 06:00 Albumin 1.5 g/dl (3.4-5.0) L 07/26/17 06:00 Current Medications Generic Name Dose Route Start Last Admin Trade Name Freq PRN Reason Stop Dose Admin Acetaminophen 650 mg 07/23/17 19:54 07/26/17 00:07 Tylenol - PO 650 mg Q6H PRN Administration FEVER OR PAIN Ampicillin Sodium/Sulbactam 100 mls @ 200 mls/hr 07/23/17 16:00 07/27/17 15: 35 Sodium 3 gm/ Sodium Chloride IVPB 200 mls/hr Q6H-IV JESSICA Administration Caspofungin 50 mg/ Sodium 250 mls @ 250 mls/hr 07/26/17 10:00 07/27/17 09:52 Chloride IV 250 mls/hr DAILY JESSICA Administration Insulin Aspart 1 vial 07/24/17 16:30 07/27/17 12:16 Novolog Vial Sliding Scale - SQ 2 units TIDAC JESSICA Administration Protocol Insulin Aspart 1 vial 07/24/17 22:00 07/26/17 21:38 Novolog Vial Sliding Scale - SQ 4 units HS JESSICA Administration Protocol Insulin Detemir 15 units 07/24/17 22:00 07/26/17 21:37 Levemir Vial SQ 15 units HS JESSICA Administration AP: DKA: resolved DM Bacterimia/Fungemia Anemia: s/p blood transfusion Levemir 15 units daily at HS Novolog coverage BGM QACHS IV Abx D/C Neutrophos Electrolyte replacement as necessary Pt to go home on Insulin, C peptide level to be done as outpt. If normal may consider stopping Insulin. Discussed with pt. CMP Sodium 139 mmol/L (136-145) 07/26/17 06:00 Potassium 3.5 mmol/L (3.5-5.1) 07/26/17 06:00 Chloride 104 mmol/L (98-107) 07/26/17 06:00 Carbon Dioxide 23 mmol/L (21-32) 07/26/17 06:00 Anion Gap 12 (8-16) 07/26/17 06:00 BUN 3 mg/dL (7-18) L D 07/26/17 06:00 Creatinine 0.4 mg/dL (0.55-1.02) L 07/26/17 06:00 Creat Clearance w eGFR > 60 (>60) 07/26/17 06:00 POC Glucometer 150 UNITS (80-120) 07/27/17 12:04 Random Glucose 96 mg/dL (74-106) D 07/26/17 06:00 Lactic Acid 1.2 mmol/L (0.4-2.0) 07/21/17 23:10 Calcium 7.3 mg/dL (8.5-10.1) L 07/26/17 06:00 Phosphorus 3.4 mg/dL (2.5-4.9) D 07/27/17 07:00 Magnesium 2.1 mg/dL (1.8-2.4) 07/25/17 06:00 Iron 83 ug/dL (27-139) 07/24/17 06:30 Transferrin 142 mg/dL (200-370) L 07/24/17 06:30 Ferritin 414.588 ng/ml (6.9-282.5) H 07/24/17 05:50 Total Bilirubin 0.8 mg/dL (0.2-1.0) 07/26/17 06:00 AST 30 U/L (15-37) D 07/26/17 06:00 ALT 18 U/L (12-78) 07/26/17 06:00 Alkaline Phosphatase 359 U/L (45-117) H 07/26/17 06:00 Creatine Kinase 1060 IU/L (26-192) H 07/21/17 16:19 Creatine Kinase Index 0.2 % (0.0-5.0) 07/21/17 16:19 CK-MB (CK-2) 2.922 ng/mL (0.5-3.6) 07/21/17 16:19 Troponin I < 0.02 ng/ml (0.00-0.05) 07/21/17 16:19 Total Protein 5.2 g/dl (6.4-8.2) L 07/26/17 06:00 Albumin 1.5 g/dl (3.4-5.0) L 07/26/17 06:00 Problem List - Problems (1) Altered mental status Code(s): R41.82 - ALTERED MENTAL STATUS, UNSPECIFIED Qualifiers: Altered mental status type: delirium Qualified Code(s): R41.0 - Disorientation, unspecified (2) DKA (diabetic ketoacidoses) Code(s): E13.10 - OTH DIABETES MELLITUS WITH KETOACIDOSIS WITHOUT COMA (3) Hyponatremia Code(s): E87.1 - HYPO-OSMOLALITY AND HYPONATREMIA
[2017-07-27] MEDS: INSULIN DETEMIR 100 UNITS/ML MDV SQ SCH (21:10)
[2017-07-28] MEDS: AMPICILLIN NA/SULBACTAM NA 3 GM in SODIUM CHLORIDE 100 ML IVPB SCH ×4 (02:50→20:23)
[2017-07-28] MEDS: INSULIN SLIDING SCALE (NOVOLOG) 1 VIAL SQ SCH ×4 (06:35→21:55)
--- NOTE | 2017-07-28 09:06 | PN ---
Progress Note, Physician Chief Complaint: Feels good History of Present Illness: Diabetic admitted with DKA and UTI on IV antibiotics - Current Medication List Current Medications: Active Medications Acetaminophen (Tylenol -) 650 mg PO Q6H PRN PRN Reason: FEVER OR PAIN Last Admin: 07/26/17 00:07 Dose: 650 mg Ampicillin Sodium/Sulbactam (Sodium 3 gm/ Sodium Chloride) 100 mls @ 200 mls/ hr IVPB Q6H-IV JESSICA Last Admin: 07/28/17 02:50 Dose: 200 mls/hr Caspofungin 50 mg/ Sodium (Chloride) 250 mls @ 250 mls/hr IV DAILY JESSICA Last Admin: 07/27/17 09:52 Dose: 250 mls/hr Insulin Aspart (Novolog Vial Sliding Scale -) 1 vial SQ TIDAC JESSICA PRN Reason: Protocol Last Admin: 07/28/17 06:35 Dose: 2 units Insulin Aspart (Novolog Vial Sliding Scale -) 1 vial SQ HS JESSICA PRN Reason: Protocol Last Admin: 07/27/17 21:11 Dose: Not Given Insulin Detemir (Levemir Vial) 15 units SQ HS JESSICA Last Admin: 07/27/17 21:10 Dose: 15 units - Objective Vital Signs: Vital Signs Temperature 99.7 F H 07/28/17 06:30 Pulse Rate 103 H 07/28/17 06:30 Respiratory Rate 20 07/28/17 06:30 Blood Pressure 145/72 07/28/17 06:30 O2 Sat by Pulse Oximetry (%) 98 07/26/17 21:00 Constitutional: Yes: No Distress Eyes: Yes: WNL HENT: Yes: WNL Neck: Yes: WNL Cardiovascular: Yes: WNL Respiratory: Yes: WNL Gastrointestinal: Yes: WNL ...Rectal Exam: Yes: Deferred Genitourinary: Yes: WNL Musculoskeletal: Yes: WNL Peripheral Pulses WNL: Yes Neurological: Yes: Alert Labs: CBC, BMP 07/26/17 06:00 07/26/17 06:00 INR, PTT INR 1.14 (0.82-1.09) 07/21/17 16:19 Assessment/Plan Plan continue same trt Rpt cbc +cmp
[2017-07-28] MEDS ORDERED: PT OWN MED DRAWER 7, Y5N ONE (09:15)
[2017-07-28 09:40] LABS: MCH 26.5 pg (25.7-33.7); MCHC 31.5 g/dl (32.0-36.0); MEAN CELL VOLUME 83.9 fl (80-96); MEAN PLT VOLUME 9.2 fl (7.5-11.1); PLATELET COUNT 387 K/MM3 (134-434); RDW 17.5 % (11.6-15.6)
[2017-07-28 09:57] LABS: ANION GAP 9 (8-16); CALCIUM 7.6 mg/dL (8.5-10.1); CO2 27 mmol/L (21-32); CREATININE 0.5 mg/dL (0.55-1.02); GLUCOSE,RANDOM 92 mg/dL (74-106)
--- NOTE | 2017-07-28 10:50 | PN ---
Progress Note (short form) - Note Progress Note: Feels overall better. No acute events overnight. Anemia noted. No CP or SOB. Reports chronic hematuria. Intake & Output 07/25/17 07/26/17 07/27/17 07/28/17 23:59 23:59 23:59 23:59 Intake Total 600 780 560 Balance 600 780 560 Last Vital Signs Temp Pulse Resp BP Pulse Ox 99.7 F H 103 H 20 145/72 98 07/28/17 06:30 07/28/17 06:30 07/28/17 06:30 07/28/17 06:30 07/26/17 21:00 Active Medications Acetaminophen (Tylenol -) 650 mg PO Q6H PRN PRN Reason: FEVER OR PAIN Last Admin: 07/26/17 00:07 Dose: 650 mg Ampicillin Sodium/Sulbactam (Sodium 3 gm/ Sodium Chloride) 100 mls @ 200 mls/ hr IVPB Q6H-IV JESSICA Last Admin: 07/28/17 02:50 Dose: 200 mls/hr Caspofungin 50 mg/ Sodium (Chloride) 250 mls @ 250 mls/hr IV DAILY JESSICA Last Admin: 07/27/17 09:52 Dose: 250 mls/hr Insulin Aspart (Novolog Vial Sliding Scale -) 1 vial SQ TIDAC JESSICA PRN Reason: Protocol Last Admin: 07/28/17 06:35 Dose: 2 units Insulin Aspart (Novolog Vial Sliding Scale -) 1 vial SQ HS JESSICA PRN Reason: Protocol Last Admin: 07/27/17 21:11 Dose: Not Given Insulin Detemir (Levemir Vial) 15 units SQ HS JESSICA Last Admin: 07/27/17 21:10 Dose: 15 units Constitutional: Yes: NAD Eyes: WNL, Conjunctiva Clear, EOM Intact HENT: Yes: WNL, Atraumatic, Normocephalic Neck: Yes: WNL, Supple, Trachea Midline Cardiovascular: Yes: WNL, Regular Rate and Rhythm Respiratory: Yes: CTA Bilaterally Gastrointestinal: Yes: WNL, Normal Bowel Sounds, Soft ...Rectal Exam: Yes: Deferred Renal/: Yes: WNL Breast(s): Yes: WNL Musculoskeletal: Yes: WNL Extremities: Yes: WNL Edema: No Peripheral Pulses WNL: Yes Neurological: Yes: WNL, Alert, Oriented ...Motor Strength: WNL Psychiatric: Yes: WNL, Alert, Oriented Labs: Laboratory Results - last 24 hr 07/21/17 07/22/17 07/27/17 16:19 06:05 12:04 WBC RBC Hgb Hct MCV MCH MCHC RDW Plt Count MPV Neutrophils % Lymphocytes % Sodium Potassium Chloride Carbon Dioxide Anion Gap BUN Creatinine POC Glucometer 150 Random Glucose Hemoglobin A1c % > 15.5 H Calcium Blood Type A POSITIVE Antibody Screen Negative Crossmatch See Detail 07/27/17 07/27/17 07/28/17 16:57 21:05 06:33 WBC RBC Hgb Hct MCV MCH MCHC RDW Plt Count MPV Neutrophils % Lymphocytes % Sodium Potassium Chloride Carbon Dioxide Anion Gap BUN Creatinine POC Glucometer 154 192 142 Random Glucose Hemoglobin A1c % Calcium Blood Type Antibody Screen Crossmatch 07/28/17 07/28/17 08:56 08:56 WBC 23.0 H RBC 2.58 L Hgb 6.8 L* Hct 21.7 L MCV 83.9 MCH 26.5 MCHC 31.5 L RDW 17.5 H Plt Count 387 D MPV 9.2 Neutrophils % No Result Required. Lymphocytes % No Result Required. Sodium 138 Potassium 3.2 L Chloride 102 Carbon Dioxide 27 Anion Gap 9 BUN 3 L Creatinine 0.5 L D POC Glucometer Random Glucose 92 Hemoglobin A1c % Calcium 7.6 L Blood Type Antibody Screen Crossmatch Problem List - Problems (1) UTI (urinary tract infection) Code(s): N39.0 - URINARY TRACT INFECTION, SITE NOT SPECIFIED Qualifiers: Urinary tract infection type: site unspecified Hematuria presence: with hematuria Qualified Code(s): N39.0 - Urinary tract infection, site not specified; R31.9 - Hematuria, unspecified; R31.9 - Hematuria, unspecified (2) Diabetes Code(s): E11.9 - TYPE 2 DIABETES MELLITUS WITHOUT COMPLICATIONS (3) DKA (diabetic ketoacidoses) Code(s): E13.10 - OTH DIABETES MELLITUS WITH KETOACIDOSIS WITHOUT COMA (4) Hypertension Code(s): I10 - ESSENTIAL (PRIMARY) HYPERTENSION Assessment/Plan DKA / HHS UTI Bacteremia HTN DM Chronic hematuria Anemia PLAN: -Transfusional support -Glycemic control -Consider workup at some point -PO as tolerated -ABX per ID Dr Marrero
[2017-07-28] MEDS: CASPOFUNGIN ACETATE 50 MG in SODIUM CHLORIDE 250 ML IV SCH (11:47)
[2017-07-28 12:18] LABS: METAMYELOCYTE 1 % (0-2); MYELOCYTE 1 % (0-2); NUCLEATED RED BLOOD CELL 1 % (0-0); TOTAL CELLS COUNTED 100
[2017-07-28 12:21] LABS: ANISOCYTOSIS 1+; HYPOCHROMIA 2+; POLYCHROMASIA 2+; TARGET CELLS 2+
[2017-07-28 12:22] LABS: PLATELET ESTIMATE ADEQUATE
[2017-07-28] MEDS: INSULIN DETEMIR 100 UNITS/ML MDV SQ SCH (21:56)
[2017-07-29] MEDS: AMPICILLIN NA/SULBACTAM NA 3 GM in SODIUM CHLORIDE 100 ML IVPB SCH ×4 (04:51→22:20)
[2017-07-29] MEDS: INSULIN SLIDING SCALE (NOVOLOG) 1 VIAL SQ SCH ×4 (06:25→22:25)
[2017-07-29 08:18] LABS: MCH 27.8 pg (25.7-33.7); MCHC 32.9 g/dl (32.0-36.0); MEAN CELL VOLUME 84.6 fl (80-96); MEAN PLT VOLUME 8.8 fl (7.5-11.1); PLATELET COUNT 442 K/MM3 (134-434); RDW 16.6 % (11.6-15.6); WHITE BLOOD COUNT 21.4 K/mm3 (4.0-10.0)
--- NOTE | 2017-07-29 08:18 | PN ---
Progress Note, Physician Chief Complaint: No new complaints History of Present Illness: Received 1 unit blood ,rpt CBC pending - Current Medication List Current Medications: Active Medications Acetaminophen (Tylenol -) 650 mg PO Q6H PRN PRN Reason: FEVER OR PAIN Last Admin: 07/26/17 00:07 Dose: 650 mg Ampicillin Sodium/Sulbactam (Sodium 3 gm/ Sodium Chloride) 100 mls @ 200 mls/ hr IVPB Q6H-IV JESSICA Last Admin: 07/29/17 04:51 Dose: 200 mls/hr Caspofungin 50 mg/ Sodium (Chloride) 250 mls @ 250 mls/hr IV DAILY JESSICA Last Admin: 07/28/17 11:47 Dose: 250 mls/hr Insulin Aspart (Novolog Vial Sliding Scale -) 1 vial SQ TIDAC JESSICA PRN Reason: Protocol Last Admin: 07/29/17 06:25 Dose: 2 units Insulin Aspart (Novolog Vial Sliding Scale -) 1 vial SQ HS JESSICA PRN Reason: Protocol Last Admin: 07/28/17 21:55 Dose: Not Given Insulin Detemir (Levemir Vial) 15 units SQ HS JESSICA Last Admin: 07/28/17 21:56 Dose: 15 units - Objective Vital Signs: Vital Signs Temperature 98.8 F 07/29/17 05:05 Pulse Rate 102 H 07/29/17 05:05 Respiratory Rate 20 07/29/17 05:05 Blood Pressure 143/69 07/29/17 05:05 O2 Sat by Pulse Oximetry (%) 93 L 07/28/17 21:00 Constitutional: Yes: No Distress Eyes: Yes: WNL HENT: Yes: WNL Neck: Yes: WNL Cardiovascular: Yes: WNL, Other Gastrointestinal: Yes: Normal Bowel Sounds ...Rectal Exam: Yes: Deferred Genitourinary: Yes: WNL Breast(s): Yes: WNL Musculoskeletal: Yes: WNL, Back Pain Extremities: Yes: WNL Edema: No Neurological: Yes: Alert Labs: INR, PTT INR 1.14 (0.82-1.09) 07/21/17 16:19 Assessment/Plan Will discuss discharge plans
[2017-07-29 08:39] LABS: ALBUMIN 1.5 g/dl (3.4-5.0); ANION GAP 7 (8-16); BILIRUBIN,TOTAL 0.8 mg/dL (0.2-1.0); CALCIUM 7.3 mg/dL (8.5-10.1); CO2 28 mmol/L (21-32); CREATININE 0.5 mg/dL (0.55-1.02); GLUCOSE,RANDOM 89 mg/dL (74-106); SGOT/AST 13 U/L (15-37); SGPT/ALT 12 U/L (12-78); TOT PROT 5.5 g/dl (6.4-8.2)
[2017-07-29 08:59] LABS: ALK PHOS 241 U/L (45-117)
[2017-07-29] MEDS ORDERED: PT OWN MED DRAWER 7, Y5N ONE ×2 (09:15→15:17)
[2017-07-29] MEDS: CASPOFUNGIN ACETATE 50 MG in SODIUM CHLORIDE 250 ML IV SCH (09:45)
--- NOTE | 2017-07-29 11:07 | PN ---
Progress Note (short form) - Note Progress Note: Feels overall better. No acute events overnight. S/P pRBCs. No CP or SOB. Intake & Output 07/26/17 07/27/17 07/28/17 07/29/17 23:59 23:59 23:59 23:59 Intake Total 995 817 5297 450 Balance 651 833 0722 450 Last Vital Signs Temp Pulse Resp BP Pulse Ox 98.8 F 102 H 20 143/69 93 L 07/29/17 05:05 07/29/17 05:05 07/29/17 05:05 07/29/17 05:05 07/28/17 21:00 Active Medications Acetaminophen (Tylenol -) 650 mg PO Q6H PRN PRN Reason: FEVER OR PAIN Last Admin: 07/26/17 00:07 Dose: 650 mg Ampicillin Sodium/Sulbactam (Sodium 3 gm/ Sodium Chloride) 100 mls @ 200 mls/ hr IVPB Q6H-IV JESSICA Last Admin: 07/29/17 09:46 Dose: 200 mls/hr Caspofungin 50 mg/ Sodium (Chloride) 250 mls @ 250 mls/hr IV DAILY [facility] Last Admin: 07/29/17 09:45 Dose: 250 mls/hr Insulin Aspart (Novolog Vial Sliding Scale -) 1 vial SQ TIDAC JESSICA PRN Reason: Protocol Last Admin: 07/29/17 06:25 Dose: 2 units Insulin Aspart (Novolog Vial Sliding Scale -) 1 vial SQ HS JESSICA PRN Reason: Protocol Last Admin: 07/28/17 21:55 Dose: Not Given Insulin Detemir (Levemir Vial) 15 units SQ HS [facility] Last Admin: 07/28/17 21:56 Dose: 15 units Constitutional: Yes: NAD Eyes: WNL, Conjunctiva Clear, EOM Intact HENT: Yes: WNL, Atraumatic, Normocephalic Neck: Yes: WNL, Supple, Trachea Midline Cardiovascular: Yes: WNL, Regular Rate and Rhythm Respiratory: Yes: CTA Bilaterally Gastrointestinal: Yes: WNL, Normal Bowel Sounds, Soft ...Rectal Exam: Yes: Deferred Renal/: Yes: WNL Breast(s): Yes: WNL Musculoskeletal: Yes: WNL Extremities: Yes: WNL Edema: No Peripheral Pulses WNL: Yes Neurological: Yes: WNL, Alert, Oriented ...Motor Strength: WNL Psychiatric: Yes: WNL, Alert, Oriented Labs: Laboratory Results - last 24 hr 07/28/17 07/28/17 07/28/17 08:56 11:51 17:38 WBC RBC Hgb Hct MCV MCH MCHC RDW Plt Count MPV Total Counted 100 Neutrophils % (Manual) 88.0 H D Band Neutrophils % 5.0 Monocytes % (Manual) 5 Myelocytes % (Man) 1 D Nucleated RBC % 1 H Metamyelocytes 1 Hypochromia 2+ Platelet Estimate Adequate Polychromasia 2+ Anisocytosis 1+ Target Cells 2+ Sodium Potassium Chloride Carbon Dioxide Anion Gap BUN Creatinine Creat Clearance w eGFR POC Glucometer 175 207 Random Glucose Calcium Total Bilirubin AST ALT Alkaline Phosphatase Total Protein Albumin Blood Type Antibody Screen Crossmatch 07/28/17 07/28/17 07/29/17 19:25 21:55 06:23 WBC RBC Hgb Hct MCV MCH MCHC RDW Plt Count MPV Total Counted Neutrophils % (Manual) Band Neutrophils % Monocytes % (Manual) Myelocytes % (Man) Nucleated RBC % Metamyelocytes Hypochromia Platelet Estimate Polychromasia Anisocytosis Target Cells Sodium Potassium Chloride Carbon Dioxide Anion Gap BUN Creatinine Creat Clearance w eGFR POC Glucometer 171 128 Random Glucose Calcium Total Bilirubin AST ALT Alkaline Phosphatase Total Protein Albumin Blood Type A POSITIVE Antibody Screen Negative Crossmatch See Detail 07/29/17 07/29/17 06:40 06:40 WBC 21.4 H RBC 2.76 L Hgb 7.7 L D Hct 23.4 L MCV 84.6 MCH 27.8 MCHC 32.9 RDW 16.6 H Plt Count 442 H MPV 8.8 Total Counted Neutrophils % (Manual) Band Neutrophils % Monocytes % (Manual) Myelocytes % (Man) Nucleated RBC % Metamyelocytes Hypochromia Platelet Estimate Polychromasia Anisocytosis Target Cells Sodium 142 Potassium 3.3 L Chloride 107 Carbon Dioxide 28 Anion Gap 7 L BUN 3 L Creatinine 0.5 L Creat Clearance w eGFR > 60 POC Glucometer Random Glucose 89 Calcium 7.3 L Total Bilirubin 0.8 AST 13 L D ALT 12 D Alkaline Phosphatase 241 H D Total Protein 5.5 L Albumin 1.5 L Blood Type Antibody Screen Crossmatch Problem List - Problems (1) UTI (urinary tract infection) Code(s): N39.0 - URINARY TRACT INFECTION, SITE NOT SPECIFIED Qualifiers: Urinary tract infection type: site unspecified Hematuria presence: with hematuria Qualified Code(s): N39.0 - Urinary tract infection, site not specified; R31.9 - Hematuria, unspecified; R31.9 - Hematuria, unspecified (2) Diabetes Code(s): E11.9 - TYPE 2 DIABETES MELLITUS WITHOUT COMPLICATIONS (3) DKA (diabetic ketoacidoses) Code(s): E13.10 - OTH DIABETES MELLITUS WITH KETOACIDOSIS WITHOUT COMA (4) Hypertension Code(s): I10 - ESSENTIAL (PRIMARY) HYPERTENSION Assessment/Plan DKA / HHS UTI Bacteremia HTN DM Chronic hematuria Anemia PLAN: -Transfusional support as needed -Glycemic control -Consider workup at some point -PO as tolerated -ABX per ID Dr Marrero
--- NOTE | 2017-07-29 14:47 | PN ---
Progress Note (short form) - Note Progress Note: Feels better Denies any complaints Blood sugar acceptable No hypoglycemia Vital Signs Period Temp Pulse Resp BP Sys/Slade Pulse Ox Last 24 Hr 98.4 F-99.7 F 101-115 18-20 136-152/65-82 93 PE: AOx3 Neck: Supple, No JVD HEENT: PERRL, EOMi Lungs: CTA CVS: S1S2 Abd: Benign EXt: No edema Neuro: No focal deficit CMP Sodium 142 mmol/L (136-145) 07/29/17 06:40 Potassium 3.3 mmol/L (3.5-5.1) L 07/29/17 06:40 Chloride 107 mmol/L (98-107) 07/29/17 06:40 Carbon Dioxide 28 mmol/L (21-32) 07/29/17 06:40 Anion Gap 7 (8-16) L 07/29/17 06:40 BUN 3 mg/dL (7-18) L 07/29/17 06:40 Creatinine 0.5 mg/dL (0.55-1.02) L 07/29/17 06:40 Creat Clearance w eGFR > 60 (>60) 07/29/17 06:40 POC Glucometer 153 UNITS (80-120) 07/29/17 12:21 Random Glucose 89 mg/dL (74-106) 07/29/17 06:40 Hemoglobin A1c % > 15.5 % (4.8-6.0) H 07/22/17 06:05 Lactic Acid 1.2 mmol/L (0.4-2.0) 07/21/17 23:10 Calcium 7.3 mg/dL (8.5-10.1) L 07/29/17 06:40 Phosphorus 3.4 mg/dL (2.5-4.9) D 07/27/17 07:00 Magnesium 2.1 mg/dL (1.8-2.4) 07/25/17 06:00 Iron 83 ug/dL (27-139) 07/24/17 06:30 Transferrin 142 mg/dL (200-370) L 07/24/17 06:30 Ferritin 414.588 ng/ml (6.9-282.5) H 07/24/17 05:50 Total Bilirubin 0.8 mg/dL (0.2-1.0) 07/29/17 06:40 AST 13 U/L (15-37) L D 07/29/17 06:40 ALT 12 U/L (12-78) D 07/29/17 06:40 Alkaline Phosphatase 241 U/L (45-117) H D 07/29/17 06:40 Creatine Kinase 1060 IU/L (26-192) H 07/21/17 16:19 Creatine Kinase Index 0.2 % (0.0-5.0) 07/21/17 16:19 CK-MB (CK-2) 2.922 ng/mL (0.5-3.6) 07/21/17 16:19 Troponin I < 0.02 ng/ml (0.00-0.05) 07/21/17 16:19 Total Protein 5.5 g/dl (6.4-8.2) L 07/29/17 06:40 Albumin 1.5 g/dl (3.4-5.0) L 07/29/17 06:40 Current Medications Generic Name Dose Route Start Last Admin Trade Name Freq PRN Reason Stop Dose Admin Acetaminophen 650 mg 07/23/17 19:54 07/26/17 00:07 Tylenol - PO 650 mg Q6H PRN Administration FEVER OR PAIN Ampicillin Sodium/Sulbactam 100 mls @ 200 mls/hr 07/23/17 16:00 07/29/17 09: 46 Sodium 3 gm/ Sodium Chloride IVPB 200 mls/hr Q6H-IV JSESICA Administration Caspofungin 50 mg/ Sodium 250 mls @ 250 mls/hr 07/26/17 10:00 07/29/17 09:45 Chloride IV 250 mls/hr DAILY JESSICA Administration Insulin Aspart 1 vial 07/24/17 16:30 07/29/17 12:42 Novolog Vial Sliding Scale - SQ 4 units TIDAC JESSICA Administration Protocol Insulin Aspart 1 vial 07/24/17 22:00 07/28/17 21:55 Novolog Vial Sliding Scale - SQ Not Given HS [facility] Protocol Insulin Detemir 15 units 07/24/17 22:00 07/28/17 21:56 Levemir Vial SQ 15 units HS JESSICA Administration AP: DKA: resolved DM Bacterimia/Fungemia Anemia: s/p blood transfusion Levemir 15 units daily at HS Novolog coverage BGM QACHS IV Abx Electrolyte replacement as necessary Pt to go home on Insulin, C peptide level to be done as outpt. If normal may consider stopping Insulin. Discussed with pt. Teach pt to self monitor blood glucose and self inject insulin CMP Sodium 139 mmol/L (136-145) 07/26/17 06:00 Potassium 3.5 mmol/L (3.5-5.1) 07/26/17 06:00 Chloride 104 mmol/L (98-107) 07/26/17 06:00 Carbon Dioxide 23 mmol/L (21-32) 07/26/17 06:00 Anion Gap 12 (8-16) 07/26/17 06:00 BUN 3 mg/dL (7-18) L D 07/26/17 06:00 Creatinine 0.4 mg/dL (0.55-1.02) L 07/26/17 06:00 Creat Clearance w eGFR > 60 (>60) 07/26/17 06:00 POC Glucometer 150 UNITS (80-120) 07/27/17 12:04 Random Glucose 96 mg/dL (74-106) D 07/26/17 06:00 Lactic Acid 1.2 mmol/L (0.4-2.0) 07/21/17 23:10 Calcium 7.3 mg/dL (8.5-10.1) L 07/26/17 06:00 Phosphorus 3.4 mg/dL (2.5-4.9) D 07/27/17 07:00 Magnesium 2.1 mg/dL (1.8-2.4) 07/25/17 06:00 Iron 83 ug/dL (27-139) 07/24/17 06:30 Transferrin 142 mg/dL (200-370) L 07/24/17 06:30 Ferritin 414.588 ng/ml (6.9-282.5) H 07/24/17 05:50 Total Bilirubin 0.8 mg/dL (0.2-1.0) 07/26/17 06:00 AST 30 U/L (15-37) D 07/26/17 06:00 ALT 18 U/L (12-78) 07/26/17 06:00 Alkaline Phosphatase 359 U/L (45-117) H 07/26/17 06:00 Creatine Kinase 1060 IU/L (26-192) H 07/21/17 16:19 Creatine Kinase Index 0.2 % (0.0-5.0) 07/21/17 16:19 CK-MB (CK-2) 2.922 ng/mL (0.5-3.6) 07/21/17 16:19 Troponin I < 0.02 ng/ml (0.00-0.05) 07/21/17 16:19 Total Protein 5.2 g/dl (6.4-8.2) L 07/26/17 06:00 Albumin 1.5 g/dl (3.4-5.0) L 07/26/17 06:00 Problem List - Problems (1) Altered mental status Code(s): R41.82 - ALTERED MENTAL STATUS, UNSPECIFIED Qualifiers: Altered mental status type: delirium Qualified Code(s): R41.0 - Disorientation, unspecified (2) DKA (diabetic ketoacidoses) Code(s): E13.10 - OTH DIABETES MELLITUS WITH KETOACIDOSIS WITHOUT COMA (3) Hyponatremia Code(s): E87.1 - HYPO-OSMOLALITY AND HYPONATREMIA
[2017-07-29] MEDS: INSULIN DETEMIR 100 UNITS/ML MDV SQ SCH (22:24)
[2017-07-29] MEDS: POTASSIUM CHLORIDE TABS 20 MEQ TABLET.ER (FP) PO SCH (22:25)
[2017-07-30] MEDS: AMPICILLIN NA/SULBACTAM NA 3 GM in SODIUM CHLORIDE 100 ML IVPB SCH ×2 (01:59→09:04)
[2017-07-30] MEDS: INSULIN SLIDING SCALE (NOVOLOG) 1 VIAL SQ SCH ×2 (06:37→11:53)
--- NOTE | 2017-07-30 08:28 | DS ---
Physical Examination Vital Signs: Vital Signs Temperature 98.2 F 07/30/17 06:00 Pulse Rate 108 H 07/30/17 06:00 Respiratory Rate 20 07/30/17 06:00 Blood Pressure 151/73 07/30/17 06:00 O2 Sat by Pulse Oximetry (%) 95 07/29/17 21:00 Findings/Remarks: Admitted with DKA ,improved Constitutional: Yes: Calm Eyes: Yes: WNL HENT: Yes: WNL Neck: Yes: WNL Cardiovascular: Yes: WNL Respiratory: Yes: WNL Gastrointestinal: Yes: WNL ...Rectal Exam: Yes: Deferred Renal/: Yes: WNL Extremities: Yes: WNL Edema: No Peripheral Pulses WNL: Yes Neurological: Yes: Alert Psychiatric: Yes: Alert Labs: CBC, BMP 07/29/17 06:40 07/29/17 06:40 Discharge Summary Reason For Visit: UTI, DIABETES W/HYPEROSMOLAR COMA,SEPSIS Current Active Problems RUSSELL (acute kidney injury) (Acute) Altered mental status (Acute) Anemia (Acute) DKA (diabetic ketoacidoses) (Acute) Diabetes (Acute) Fungemia (Acute) Hypertension (Acute) Hyponatremia (Acute) Hypophosphatemia (Acute) Non-ketotic hyperosmolar coma (Acute) Sepsis (Acute) UTI (urinary tract infection) (Acute) Condition: Unchanged/Unknown - Instructions - Home Medications Comprehensive Discharge Medication List: Ambulatory Orders Irbesartan 300 mg PO DAILY 07/21/17 Metformin HCl [Metformin HCl ER] 1,000 mg PO BID 07/21/17
[2017-07-30] MEDS ORDERED: PT OWN MED DRAWER 7, Y5N ONE (09:01)
[2017-07-30] MEDS: POTASSIUM CHLORIDE TABS 20 MEQ TABLET.ER (FP) PO SCH (09:07)
[2017-07-30] MEDS: CASPOFUNGIN ACETATE 50 MG in SODIUM CHLORIDE 250 ML IV SCH (10:08)
[2017-07-30 10:49] VITALS: BP 153/77; PULSE 103; TEMP 98.5
== END 2017-07-30 13:35 | disposition home or self-care (01) | DRG 720 ==
LOC: JER 15:54 → INTOOBSV 17:39 → JERBED 17:39 → OBSVTOIN 22:24 → JICU 07-22 00:14 → J8W 07-24 16:49
PROVIDERS: ADMIT Internal Medicine; ATTEND Internal Medicine
PROC: 30233N1 Transfusion of Nonautologous Red Blood Cells into Peripheral Vein, Percutaneous Approach (ICD-10-PCS; principal; 2017-07-24)
DX: A41.9 Sepsis, unspecified organism (principal); E87.1 Hypo-osmolality and hyponatremia; N17.9 Acute kidney failure, unspecified; B49 Unspecified mycosis; E83.39 Other disorders of phosphorus metabolism; J45.909 Unspecified asthma, uncomplicated; I10 Essential (primary) hypertension; Z79.84 Long term (current) use of oral hypoglycemic drugs; N39.0 Urinary tract infection, site not specified; E11.10 Type 2 diabetes mellitus with ketoacidosis without coma; E86.0 Dehydration; D64.9 Anemia, unspecified; B96.20 Unspecified Escherichia coli [E. coli] as the cause of diseases classified elsewhere; R31.29 Other microscopic hematuria
CPT/HCPCS: 36415; 36430; 36511; 36600; 70450-TC; 71010-TC; 73523-TC; 76856-TC; 80048; 80053; 81003; 81015; 82009; 82550; 82553; 82728; 82803; 83036; 83540; 83605; 83735; 84100; 84466; 84484; 85025; 85027; 85610; 86850; 86900; 86901; 86922; 87040; 87077; 87086; 87186; 93005; 93010; 97116-GP; 97162-GP; 99285-25; G0378; J0637; P9038; P9058

== ENCOUNTER 2020-07-20 21:59 | Emergency (ER) | payer OTHER ==
[2020-07-20 22:06] VITALS: BMI 31.8
[2020-07-20] MEDS ORDERED: HYDROCHLOROTHIAZIDE 25 MG TABLET (FP) PO ONE (22:52)
[2020-07-20] MEDS ORDERED: LACTATED RINGERS SOLUTION 1000 ML INFUS.BAG IV ONE (23:08)
[2020-07-20] MEDS ORDERED: HYDROCHLOROTHIAZIDE 25 MG TABLET (FP) ONE (23:09)
[2020-07-20] MEDS ORDERED: amLODIPine BESYLATE 5 MG TABLET (FP) PO ONE (23:18)
[2020-07-20 23:38] LABS: BASO % 0.9 % (0-2.0); EOS % 1.3 % (0-4.5); HEMATOCRIT 37.6 % (32.4-45.2); LYMPH % 20.3 % (8-40); MCH 28.6 pg (25.7-33.7); MEAN CELL VOLUME 89.3 fl (80-96); MEAN PLT VOLUME 10.2 fl (7.5-11.1); MONO % 9.9 % (3.8-10.2); NEUT % 67.6 % (42.8-82.8); PLATELET COUNT 354 K/MM3 (134-434); RBC 4.21 M/mm3 (3.60-5.2); RDW 13.5 % (11.6-15.6); WHITE BLOOD COUNT 7.5 K/mm3 (4.0-10.0)
[2020-07-20 23:59] LABS: CHLORIDE 94 mmol/L (98-107); POTASSIUM 5.9 mmol/L (3.5-5.1); SODIUM 131 mmol/L (136-145)
[2020-07-21 00:01] LABS: ALBUMIN 3.6 g/dl (3.4-5.0); ANION GAP 14 MMOL/L (8-16); BLOOD UREA NITROGEN 15.1 mg/dL (7-18); CALCIUM 9.3 mg/dL (8.5-10.1); CO2 23 mmol/L (21-32)
[2020-07-21 00:04] LABS: CREATININE 1.2 mg/dL (0.55-1.3); SGOT/AST 42 U/L (15-37); SGPT/ALT 15 U/L (13-61)
[2020-07-21 00:06] LABS: BILIRUBIN,TOTAL 0.7 mg/dL (0.2-1); TOT PROT 7.9 g/dl (6.4-8.2)
[2020-07-21 00:07] LABS: ALK PHOS 141 U/L (45-117)
[2020-07-21 00:51] LABS: GLUCOSE,RANDOM 484 mg/dL (74-106)
[2020-07-21] MEDS ORDERED: LACTATED RINGERS SOLUTION 1000 ML INFUS.BAG IV ONE (00:51)
[2020-07-21 01:00] LABS: EPI CELLS 5 /uL (0-25.1); HYALINE CASTS 2 /uL (0-3.1); URINE APPEARANCE CLEAR; URINE BACTERIA >9,000 /uL (0-1359); URINE BILIRUBIN NEGATIVE (NEGATIVE); URINE COLOR YELLOW; URINE GLUCOSE (UA) 3+ (NEGATIVE); URINE KETONE 1+ (NEGATIVE); URINE LEUK ESTERASE 1+ (NEGATIVE); URINE NITRITE NEGATIVE (NEGATIVE); URINE PROTEIN NEGATIVE (NEGATIVE); URINE RBC 116 /uL (0-23.9); URINE UROBILINOGEN 0.2 mg/dL (0.2-1.0); URINE WBC 146 /uL (0-25.8)
[2020-07-21 01:24] LABS: POTASSIUM 4.8 mmol/L (3.5-5.1)
[2020-07-21 01:26] LABS: ALBUMIN 3.5 g/dl (3.4-5.0); BLOOD UREA NITROGEN 14.6 mg/dL (7-18); CALCIUM 9.2 mg/dL (8.5-10.1)
[2020-07-21 01:29] LABS: CREATININE 1.1 mg/dL (0.55-1.3)
[2020-07-21 01:31] LABS: BILIRUBIN,TOTAL 0.6 mg/dL (0.2-1); TOT PROT 7.1 g/dl (6.4-8.2)
[2020-07-21] MEDS ORDERED: CEPHALEXIN MONOHYDRATE 500 MG CAPSULE (UD) PO ONE (01:46)
[2020-07-21] MEDS ORDERED: CEPHALEXIN MONOHYDRATE 500 MG CAPSULE (UD) ONE (02:43)
[2020-07-21 04:50] VITALS: BP 152/81; PULSE 91; TEMP 98.9
== END 2020-07-21 04:47 | disposition home or self-care (01) ==
LOC: JER 21:59
DX: E11.65 Type 2 diabetes mellitus with hyperglycemia (principal)
CPT/HCPCS: 36415; 71045-TC-FY; 80053; 81003; 82550; 82553; 82962; 84484; 85025; 93005; 93010; 99285-25